=== PATIENT | female | born 1960 | race Caucasian/White ===

== ENCOUNTER → 2020-05-03 | Outpatient (CLI) | payer OTHER, SELFPAY ==
[2020-05-03 18:39] LABS: Vitamin D,25 Hydroxy 92.1 ng/mL
[2020-05-03 18:41] LABS: Cholesterol 176 mg/dL (200); High Density Lipoprotein 64 mg/dL; Thyroid Stim Hormone (TSH) 0.28 uIU/mL (0.358-3.74); Triglycerides 121 mg/dL; Very Low Density Lipoprotein 24 mg/dL (5-40)
== END | disposition home or self-care (01) ==
LOC: MFPLAB 15:01
PROVIDERS: PCP Family Medicine; Referring Provider Family Medicine; Visit Provider Family Medicine
DX: Z00.00 Encounter for general adult medical examination without abnormal findings (principal); E07.89 Other specified disorders of thyroid; E55.9 Vitamin D deficiency, unspecified
CPT/HCPCS: 36415; 80061; 82306; 84443

== ENCOUNTER → 2020-06-13 14:08 | Outpatient (CLI) | payer OTHER, SELFPAY ==
--- NOTE | 2020-06-13 14:11 | BI_ITS ---
MAMMOGRAPHY - BILATERAL SCREENING REASON FOR EXAM: Female, 60 years old. Routine annual screening examination. PERTINENT HISTORY: Non-contributory. Bilateral breast implants. TECHNIQUE: Digital bilateral breast yue (3D mammographic acquisition) in the CC and MLO projections. 2-D mediolateral oblique (MLO) and craniocaudad (CC) views of both breasts were obtained. CAD: Full Field Digital Mammography with Computer Added Detection was performed. COMPARISON: No comparison mammograms available at this time. If any prior films become available, an addendum to this report can be generated. FINDINGS: Breast Composition: The breasts are extremely dense, which lowers the sensitivity of mammography. There are no dominant masses or suspicious calcifications. Bilateral breast implants are visualized. They are unremarkable. No other significant abnormalities are identified. BI/SCREEN MAMM (CAD) W/YUE BILAT IMPRESSION: Negative screening mammogram. Yearly followup mammogram recommended. (A) ASSESSMENT CATEGORY: BIRADS Category 2: Benign. A letter regarding these results will be sent to the patient by the facility within 30 days. Approximately 10% of breast cancers are not detected by mammography. A normal mammogram should not delay biopsy of a clinically suspicious abnormality. [id number] Electronically Signed: Chester Thomas, at 13:41 EST , Service support ,
--- NOTE | 2020-06-13 14:30 | BD_ITS ---
STUDY: DUAL ENERGY X-RAY ABSORPTIOMETRY / DXA REASON FOR EXAM: Female, 60 years old. Age of vishnu 50. Pat is 119# and 62 and quot; a loss of 1.25 and quot; per pat. Smoked as a teenager. Takes a multi-vit. Exercises a little to moderatly. Mom and grandma have osteo. TECHNIQUE: Bone Mineral Density (BMD) measurements of lumbar spine and bilateral hips were obtained. COMPARISON: None. FINDINGS: Lumbar Spine (L1-L4): g/cm2 (1.097) / T-score (-0.7) / Z-score (0.4) Findings are suggestive of normal bone density with a low fracture risk. Left Femur Total: g/cm2 (0.808) / T-score (-1.6) / Z-score (-0.7) Left Femoral Neck: g/cm2 (0.732) / T-score (-2.2) / Z-score (-1.0) Right Femur Total: g/cm2 (0.801) / T-score (-1.6) / Z-score (-0.8) Right Femoral Neck: g/cm2 (0.791) / T-score (-1.8) / Z-score (-0.6) BD/Dexa Bone Density Study IMPRESSION: The patient is considered osteopenic as outlined below according to World Ari Organization (WHO) criteria with a high fracture risk. Reference Information: The T-score is the number of standard deviations above or below the standard which is normal for young adults at their peak bone mineral density. The World Health Organization (WHO) interprets the T-scores as follows: Above -1 Normal bone density Between -1 and -2.5 Osteopenia Equal to / or below -2.5 Osteoporosis As a practical clinical guideline, osteopenia may be graded as follows: Mild -1 through -1.5 Moderate -1.6 through -2.0 Severe -2.1 through -2.4 The Z-score is the number of standard deviations above or below age-matched controls. A Z-score of less than -1.5 would be considered abnormal. References: 1. NIH Osteoporosis and Related Bone Diseases www osteo.org 2. International Society for Clinical Densitometry www iscd.org 3. National Osteoporosis Foundation www nof.org Electronically Signed: Chester Thomas, at 15:23 EST , Service support ,
== END ==
PROVIDERS: PCP Family Medicine; Referring Provider Family Medicine; Visit Provider Family Medicine
DX: N95.9 Unspecified menopausal and perimenopausal disorder (principal); Z12.31 Encounter for screening mammogram for malignant neoplasm of breast
CPT/HCPCS: 77063; 77067; 77080

== ENCOUNTER → 2020-08-19 10:17 | Outpatient (CLI) | payer OTHER, SELFPAY ==
[2020-08-19 09:27] VITALS: BMI 22.4
[2020-08-19 12:42] LABS: Vitamin D,25 Hydroxy 63.8 ng/mL
[2020-08-19 12:46] LABS: Free T3 3.3 pg/mL (2.18-3.98); Thyroid Stim Hormone (TSH) 0.77 uIU/mL (0.358-3.74)
[2020-08-19 13:47] LABS: ALB/GLOB Ratio 1.2 RATIO (0.9-2.4); AST(SGOT) 21 U/L (15-37); Alanine Aminotransfer ALT/SGPT 25 U/L (13-56); Albumin, Serum 4.3 g/dL (3.2-5.0); Alkaline Phosphatase 57 U/L (45-117); Anion Gap 6 (5-15); BUN 14 mg/dL (7-18); BUN/Creat Ratio 14.4 RATIO (10-20); Calcium,Total 9.6 mg/dL (8.5-10.1); Chloride 107 mmol/L (98-107); Creatinine, Serum 0.98 mg/dL (0.55-1.02); EST Glomerular Filtration Rate 62 mL/min (>60); Est Glom Filt Rate - Afr Amer 75 mL/min (>60); Globulin 3.6 g/dL (2.2-4.2); Glucose 87 mg/dL (74-106); Potassium 3.9 mmol/L (3.5-5.1); Protein, Total 7.9 g/dL (6.4-8.2); Sodium Level 140 mmol/L (136-145)
== END ==
PROVIDERS: PCP Family Medicine; Visit Provider Internal Medicine Endocrinology, Diabetes & Metabolism
DX: E04.2 Nontoxic multinodular goiter (principal); E55.9 Vitamin D deficiency, unspecified; M85.80 Other specified disorders of bone density and structure, unspecified site
CPT/HCPCS: 36415; 80053; 82306; 84439; 84443; 84481

== ENCOUNTER → 2020-09-05 08:42 | Outpatient (CLI) | payer OTHER, SELFPAY ==
[2020-08-19 09:27] VITALS: BMI 22.4
--- NOTE | 2020-09-05 08:43 | US_ITS ---
STUDY: THYROID ULTRASOUND REASON FOR EXAM: Female, 60 years old. Nodular goiter, compare to previous TI-RAD please -- prev 2004 us in pacs is the only comparison we have - connect will not let me attach TECHNIQUE: Ultrasound evaluation of the thyroid was performed with real-time and static perez-scale imaging. COMPARISON: None. FINDINGS: RIGHT LOBE: The right lobe of the thyroid gland measures 4.7 cm x 1.5 cm x 1.4 cm. There is a heterogeneous echotexture. There is a dominant nodule measuring 2.2 cm x 1.9 cm x 1.1 cm in the lower aspect of the right lobe. This is mostly solid with cystic spaces. Intranodular vascularity is seen. 2 smaller similar-appearing nodules are seen measuring 1.3 cm x 0.9 cm x 0.9 cm and 0.5 cm x 0.5 cm x 0.4 cm. TIRADS category 4. LEFT LOBE: The left lobe of the thyroid gland measures 4.5 cm x 1.7 cm x 1.3 cm. There is a heterogeneous echotexture. 3 nodules are seen. The largest measures 2.2 cm x 1.3 cm x 1.2 cm in the inferior pole of the left lobe. This is a solid hypoechoic nodule. Intranodular vascularity is seen. TIRADS Category 4. ISTHMUS: The isthmus measures 2 mm. The regional lymph nodes are normal. US/Thyroid IMPRESSION: Bilateral thyroid nodules as described. Electronically Signed: Chester Thomas MD at 12:07 EST , Service support ,
== END ==
PROVIDERS: PCP Family Medicine; Referring Provider Internal Medicine Endocrinology, Diabetes & Metabolism; Visit Provider Internal Medicine Endocrinology, Diabetes & Metabolism
DX: E04.2 Nontoxic multinodular goiter (principal)
CPT/HCPCS: 76536

== ENCOUNTER → 2020-10-25 | Outpatient (CLI) | payer OTHER, SELFPAY ==
[2020-08-19 09:27] VITALS: BMI 22.4
--- NOTE | 2020-10-25 08:00 | ASPS_PTH ---
PATIENT: OJLIE STAUFFER LOC: [facility] U#:[id number] AGE/SX: 60/F ROOM: RE10/25/[address]: Dr. Boyd Nieves MD : 1960 BED: DIS: 10/25/2020 SPEC #: [id number] RECD: 10/25/20 16:58 STATUS: JIMMY ANSELMO #: [id number] ASHLEE: 10/25/20 08:[address]: Boyd Nieves DEPT: CYTOLOGY RECD BY: Fili Ochoa ENTERED: 10/28/20 09:01 SP TYPE: ASPIRATION OTHR DR: Dr. Jolie Parsons MD Tissues: A - Thyroid gland, NOS B - Thyroid gland, NOS Procedures: Special Stain Group II Cytology Other HEADER OPERATION: Ultrasound-guided bilateral fine needle aspiration thyroid PRE-OP DIAGNOSIS: Bilateral thyroid nodules TISSUE SUBMITTED: A - Right thyroid FNA slides x12, B - Left thyroid FNA slides x12 DIAGNOSIS CYTOLOGY A. Right thyroid nodule, ultrasound-guided FNA (smears): Consistent with benign colloid nodule. Adequate for evaluation. B. Left thyroid nodule, ultrasound-guided FNA (smears): Consistent with benign colloid nodule. Adequate for evaluation. EDGARD:eli 10/28/2020 COMMENT Correlation with clinical, radiologic findings and appropriate follow up are necessary. CYTOLOGY STUDY Slides are reviewed. CYTOLOGY GROSS A - Received are 12 smears labeled with the patient's name and designated per the requisition as right thyroid. Submitted for staining. B - Received are 12 smears labeled with the patient's name and designated per the requisition as left thyroid. Submitted for staining. / eli 10/28/2020 TC:5 CPT: 81448 x2
== END | disposition home or self-care (01) ==
LOC: LABSPEC 10-28 08:08
PROVIDERS: PCP Family Medicine; Referring Provider Surgery; Visit Provider Surgery
DX: E04.2 Nontoxic multinodular goiter (principal)
CPT/HCPCS: 88161; 88313

== ENCOUNTER → 2024-07-06 | Outpatient (CLI) | payer OTHER, SELFPAY ==
--- NOTE | 2024-07-06 08:26 | BI_ITS ---
MAMMOGRAPHY - BILATERAL SCREENING 3-D TOMOSYNTHESIS REASON FOR EXAM: Female, 64 years old. Screening for breast cancer PERTINENT HISTORY: No significant family history. TECHNIQUE: 2-D mammograms and 3-D Tomosynthesis of the breast (s) were performed. CAD was performed. COMPARISON: 08/05/2022 FINDINGS: The breast composition is composed of scattered fibroglandular density. Scattered benign calcifications are seen. No dense spiculated masses or suspicious microcalcifications are identified. No architectural distortion is identified. There is no skin thickening or retraction. There has been no significant change since the prior study. Bilateral retropectoral silicone implants appear intact. BI/SCRN MAMM (CAD)W/YUE BILAT IMPRESSION: No mammographic signs of malignancy. Routine yearly mammograms recommended. ASSESSMENT CATEGORY: BIRADS Category 1: Negative. A letter regarding these results will be sent to the patient by the facility within 30 days. FOLLOW UP RECOMMENDATION: Yearly follow up mammogram recommended. (A) Approximately 10% of breast cancers are not detected by mammography. A normal mammogram should not delay biopsy of a clinically suspicious abnormality. Electronically Signed: Alex Villanueva MD at 9:23 EST ,
== END | disposition home or self-care (01) ==
LOC: OPBI 08:26
PROVIDERS: PCP Family Medicine; Referring Provider Nurse Practitioner Women's Health; Visit Provider Nurse Practitioner Women's Health
DX: Z12.31 Encounter for screening mammogram for malignant neoplasm of breast (principal)
CPT/HCPCS: 77063; 77067

== ENCOUNTER → 2024-09-15 | Outpatient (CLI) | payer OTHER, SELFPAY ==
--- NOTE | 2024-09-15 15:12 | RAD_ITS ---
PROCEDURE: Bilateral hip pain. TECHNIQUE: Five views of the hip and pelvis were obtained. COMPARISON: None. FINDINGS: No fracture. No suspicious bone lesion. Normal alignment. Calcified pelvic phleboliths. There is evidence of prior bilateral tubal ligation clips. Degenerative changes of the lower lumbar spine. RAD/Hips B/L min 2 views w/ Pelvis IMPRESSION: No acute abnormality is seen. Reading Location: [id number]
== END | disposition home or self-care (01) ==
LOC: MTRAD 15:10
PROVIDERS: PCP Family Medicine; Referring Provider Family Medicine; Visit Provider Family Medicine
DX: M25.551 Pain in right hip (principal); M25.552 Pain in left hip
CPT/HCPCS: 73521

== ENCOUNTER 2024-10-03 05:20 | Day surgery (SDC) | payer OTHER, SELFPAY ==
[2024-10-03] VITALS (8 sets, daily range): BP systolic 88–120; BP diastolic 56–73; PULSE 60–74; RESP 16–18; TEMP 36.2–36.6; O2SAT 97–100; BMI 21.9
--- NOTE | 2024-10-03 06:28 | PCM.PRE.AN2 ---
ASA Classification* ASA Classification ASA Classification: 2 Assessment & Plan Anesthesia* Anesthesia Assessment Anesthesia Assessment: Discussed sedation and/or anesthesia options, risks, benefits, and alternatives with patient/parents/legal guardian/POA. Questions invited. The patient/parents/legal guardian/POA seems to understand and agrees to proceed with anesthesia plan. Reviewed the physical assessment, medical history, allergy history and patient home medications list prior to surgery/procedure/anesthetic and documented any changes. Performed airway and anesthesia risk assessments. Anesthesia Type Anesthesia Type: MAC History Source History Obtained from:: Patient and Chart Anesthesia Focused Assessment* Temperature: 97.1 F Pulse Rate: 74 Blood Pressure: 120/73 Respiratory Rate: 16 Pulse Ox: 100 Oxygen Delivery Method: Room Air Airway Assessment Mouth opens: >3 cm Mallampati Score: I Teeth Condition: Caps/Crowns ([place] on left lower molar. 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 When Was Last Pacemaker Check QUESTION #4 FULL TEXT: You/Your Family Experience fever (hyperthermia) with Anesthesia Last Oral Intake Last Oral intake: Last Oral Intake NPO since 01:00 10/03/24 05:45 Meds taken in AM with sips of No 10/03/24 05:45 water? Meds patient instructed to take am of surgery Any additional information?: Yes NPO since: 01:00 (Patient finished prep at 1 AM.) PONV PONV - apartment leasing consultant: PONV - apartment leasing consultant Female Yes 09/29/24 08:28 HX of Motion Sickness Yes 09/29/24 08:28 HX of N/V After Surgery No 09/29/24 08:28 Non-Smoker Yes 09/29/24 08:28 Duration of Surgery greater No 09/29/24 08:28 than 60 minutes Number of Risk Factors 3 09/29/24 08:28 PONV Score Moderate Risk 09/29/24 08:28 Height & Weight Height & Weight: Anesthesia: Height & Weight Height 5 ft 3 in 10/03/24 05:45 Weight: 56.245 kg 10/03/24 05:45 Body Mass Index (BMI) 21.9 10/03/24 05:45 Respiratory Assessment Respiratory Assessment - apartment leasing consultant: Respiratory Tract Infection Hx - apartment leasing consultant Hx Respiratory Tract Infection No 09/29/24 08:28 STOP Sleep Apnea STOP Sleep Apnea - apartment leasing consultant: STOP Sleep Apnea - apartment leasing consultant Hx Hypertension No 09/29/24 08:28 Hx Sleep Apnea No 09/29/24 08:28 CPAP BIPAP Do you snore loudly (louder No 09/29/24 08:28 than talking or can be heard Do you often feel tired/ No 09/29/24 08:28 fatigued/ sleepy during daytime? Has anyone observed you stop No 09/29/24 08:28 breathing during sleep? STOP Results Negative 09/29/24 08:28 QUESTION #5 FULL TEXT : Do you snore loudly (louder than talking or can be heard through closed doors)? 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 Specify any problems Hx of Preganancy in last 3 No 09/29/24 08:28 Months Nurse Filling Out Transfusion DSCHRIBER 09/29/24 08:28 & Questions: Date: 09/29/24 09/29/24 08:28 Time: 08:30 09/29/24 08:28 Patient unable to answer at this time (ie. confused, unrespo /Reproduction History /Reproductive History - apartment leasing consultant: /Reproductive Hx- apartment leasing consultant Hx Now No 09/29/24 08:28 Gestational Age (in weeks): EDC: Hx Hx Para Hx Section SAB No 09/29/24 08:28 [facility] Medical History Loss of hearing Post-menopausal Alcohol use Arthritis Back pain Non-smoker Vitamin D deficiency Osteopenia Low calcium levels nodules on thyroid Home Medications ?Medication ?Instructions ?Recorded ?Last Taken ?Type ergocalciferol (vitamin D2) 1,250 1,250 mcg PO QMONTH 08/19/20 09/09/24 History mcg (50,000 unit) capsule (Vitamin D2) B-complex with vitamin C 1 tab PO QDAY 06/27/24 09/30/24 History calcium 333 mg 1 tab PO QDAY 06/27/24 09/30/24 History (carbonate)-magnesium 133 mg (oxide)-zinc 5 mg tablet meloxicam 7.5 mg tablet 7.5 mg PO QDAY PRN pain 06/27/24 Unknown History multivitamin 1 tab PO QDAY 06/27/24 Unknown History naproxen 500 mg tablet 500 mg PO BID 09/29/24 10/01/24 History cetirizine 10 mg tablet (24Hour 10 mg PO DAILY 10/03/24 10/02/24 History Allergy) Allergy/AdvReac Type Severity Reaction Status Date / Time amoxicillin Allergy Mild Hives Verified 10/03/24 05:41 Family History Other Anxiety Arthritis Asthma Depression Osteoporosis Skin cancer Thyroid disorder Surgical History Hx of colonoscopy H/O breast augmentation Social History household members: spouse current occupational status: retired Smoking Status: Never smoker alcohol intake: current alcohol intake frequency: holidays/special occasions only substance use type: does not use seatbelt use: always do you feel safe at home: Yes additional social history: - 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 Review of Systems (Anesthesia) ROS Narrative System reviewed and no additional complaints, except as documented.
--- NOTE | 2024-10-03 06:58 | PCM.HP.STD ---
HPI - General General Date of Admission: 10/03/24 Date of Service: 10/03/24 Chief Complaint: Screening colonoscopy HPI Narrative EMEKA STAUFFER, is a 64 F who presents today for screening colonoscopy. She has not had a colonoscopy in the past. She has no medical history. She does not take any medicines on daily basis. FORMERLY [facility], 1928–1983 Medical History Loss of hearing Post-menopausal Alcohol use Arthritis Back pain Non-smoker Vitamin D deficiency Osteopenia Low calcium levels nodules on thyroid Home Medications ?Medication ?Instructions ?Recorded ?Last Taken ?Type ergocalciferol (vitamin D2) 1,250 1,250 mcg PO QMONTH 08/19/20 09/09/24 History mcg (50,000 unit) capsule (Vitamin D2) B-complex with vitamin C 1 tab PO QDAY 06/27/24 09/30/24 History calcium 333 mg 1 tab PO QDAY 06/27/24 09/30/24 History (carbonate)-magnesium 133 mg (oxide)-zinc 5 mg tablet meloxicam 7.5 mg tablet 7.5 mg PO QDAY PRN pain 06/27/24 Unknown History multivitamin 1 tab PO QDAY 06/27/24 Unknown History naproxen 500 mg tablet 500 mg PO BID 09/29/24 10/01/24 History cetirizine 10 mg tablet (24Hour 10 mg PO DAILY 10/03/24 10/02/24 History Allergy) Allergy/AdvReac Type Severity Reaction Status Date / Time amoxicillin Allergy Mild Hives Verified 10/03/24 05:41 Family History Other Anxiety Arthritis Asthma Depression Osteoporosis Skin cancer Thyroid disorder Surgical History Hx of colonoscopy H/O breast augmentation Social History household members: spouse current occupational status: retired Smoking Status: Never smoker alcohol intake: current alcohol intake frequency: holidays/special occasions only substance use type: does not use seatbelt use: always do you feel safe at home: Yes additional social history: - 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 ROS Constitutional Constitutional: Denies fatigue, fever(s), poor appetite, weight gain or weight loss Gastrointestinal Gastrointestinal: Denies belching, bloating, change in bowel habits, change in stool character, chewing difficulty, coffee ground emesis, constipation, cramping, diarrhea, dyspepsia, dysphagia, early satiety, excessive flatus, fecal incontinence, heartburn, hematemesis, hematochezia, hemorrhoids, loose stools, melena, nausea, odynophagia, rectal bleeding, tenesmus, vomiting or weight changes Vital Signs Vital Signs Vital Signs: 10/03/24 05:43 10/03/24 05:45 10/03/24 06:33 Temperature 97.1 F L 97.1 F L Temperature Source Temporal Pulse Rate 74 74 Respiratory Rate 16 16 Respiratory Pattern Normal Blood Pressure 120/73 120/73 Blood Pressure Mean 88 Blood Pressure Source Monitor Blood Pressure Position Semi-Fowlers Blood Pressure Location Left Arm Pulse Ox 100 100 Oxygen Delivery Method Room Air Room Air Weight Weight: 124 lb Body Mass Index (BMI) 21.9 Physical Exam Const alert, oriented x3, no apparent distress and healthy appearing General Appearance: cooperative GI normal to inspection, nondistended, normoactive bowel sounds, soft to palpation, non-tender and non-distended Percussion: normal to percussion Rectal Exam: deferred Assessment & Plan Assessment/Plan (1) Encounter for screening for malignant neoplasm of colon: PLAN: She was explained alternatives, risk and benefits include understanding bleeding, infection, sepsis, perforation, need for surgery . She will have an ASA of 3.
--- NOTE | 2024-10-03 07:28 | PCM.POST.ANE ---
Anesthesia: Postop Eval I Current Vital Signs Temperature: 97.1 F Pulse Rate: 71 Blood Pressure: 88/56 Respiratory Rate: 16 Pulse Ox: 98 Oxygen Delivery Method: Room Air Assessment Airway patent: Yes Spontaneous unlabored respirations: Yes Mental status: Awake and Calm nausea: No Vomiting: No Anesthesia Complication: No Fluid Hydration Crystalloid volume administer (ml): 45 Total IV fluid infused: 45 Progress Note Anesthesia document: Postop Eval 1 completed: Yes
--- NOTE | 2024-10-03 07:29 | OP.CCLET_ITS ---
10/03/2024 Jolie Parsons [address] [place] [address] Re : Colonoscopy procedure for Jolie Healy Dear Dr. Parsons This procedure was performed on Thursday, October 03, 2024. My impressions and recommendations are as follows: Impressions : - Diverticulosis in the recto-sigmoid colon and in the sigmoid colon. - The examination was otherwise normal on direct and retroflexion views. - No specimens collected. Recommendations : - Discharge patient to home. - Resume previous diet. - Continue present medications. - Repeat colonoscopy in 10 years for screening purposes. My findings are described in the full procedure note, which is enclosed. If I can be of further assistance, please feel free to contact me at . Sincerely, Vinnie Enrique, 10/03/2024 7:28:16 AM This report has been signed electronically.
--- NOTE | 2024-10-03 07:29 | OP.COLON_ITS ---
Patient Name: Jolie Healy Procedure Date: 10/03/2024 6:11 AM Date of : 1960 Age: 64 Procedure: Colonoscopy Indications: Screening for colorectal malignant neoplasm Providers: Vinnie Enrique DO Referring MD: Jolie Parsons Medicines: Monitored Anesthesia Care Patient Profile: This is a 64 year old female. Refer to note in patient chart for documentation of history and physical. Last Colonoscopy: more than 10 years ago. Complications: No immediate complications. Procedure: Pre-Anesthesia Assessment: - Prior to the procedure, a History and Physical was performed, and patient medications and allergies were reviewed. The patient is competent. The risks and benefits of the procedure and the sedation options and risks were discussed with the patient. All questions were answered and informed consent was obtained. Patient identification and proposed procedure were verified by the physician in the pre-procedure area. Mental Status Examination: alert and oriented. Airway Examination: normal oropharyngeal airway and neck mobility. Respiratory Examination: clear to auscultation. CV Examination: normal. Prophylactic Antibiotics: The patient does not require prophylactic antibiotics. Prior Anticoagulants: The patient has taken no anticoagulant or antiplatelet agents except for NSAID medication. ASA Grade Assessment: II - A patient with mild systemic disease. After reviewing the risks and benefits, the patient was deemed in satisfactory condition to undergo the procedure. The anesthesia plan was to use monitored anesthesia care (MAC). Immediately prior to administration of medications, the patient was re-assessed for adequacy to receive sedatives. The heart rate, respiratory rate, oxygen saturations, blood pressure, adequacy of pulmonary ventilation, and response to care were monitored throughout the procedure. The physical status of the patient was re-assessed after the procedure. After I obtained informed consent, the scope was passed under direct vision. Throughout the procedure, the patient's blood pressure, pulse, and oxygen saturations were monitored continuously. The Colonoscope was introduced through the anus and advanced to the cecum, identified by appendiceal orifice and ileocecal valve. The colonoscopy was performed without difficulty. The patient tolerated the procedure well. The quality of the bowel preparation was adequate. Anatomical landmarks were photographed. Scope In: 7:09:52 AM Scope Withdrawal Time 0 hours 6 minutes 23 seconds Scope Out: 7:20:41 AM Total Procedure Duration Time 0 hours 10 minutes 49 seconds Findings: The perianal and digital rectal examinations were normal. A few small-mouthed diverticula were found in the recto-sigmoid colon and sigmoid colon. The exam was otherwise without abnormality on direct and retroflexion views. Impression: - Diverticulosis in the recto-sigmoid colon and in the sigmoid colon. - The examination was otherwise normal on direct and retroflexion views. - No specimens collected. Recommendation: - Discharge patient to home. - Resume previous diet. - Continue present medications. - Repeat colonoscopy in 10 years for screening purposes. Procedure Code(s): --- Professional --- G0121, Colorectal cancer screening; colonoscopy on individual not meeting criteria for high risk CPT copyright 2021 [employer]. All rights reserved. The codes documented in this report are preliminary and upon cinder man review may be revised to meet current compliance requirements. Vinnie Enrique DO 10/03/2024 7:28:16 AM This report has been signed electronically. Number of Addenda: 0 Note Initiated On: 10/03/2024 6:11 AM
--- NOTE | 2024-10-03 08:54 | PCM.POSTANE2 ---
Anesthesia Postop Eval I Sum Postop Eval Completion status Anesthesia document: Postop Eval 1 completed: Yes Anesthesia Postop Eval I Summary Anesthesia Postop Eval I Summary: Anesthesia Postop Eval I: Assessment Summary Airway patent Yes 10/03/24 07:28 [email or web address] Spontaneous unlabored Yes 10/03/24 07:28 [email or web address] respirations Mental status Awake,Calm 10/03/24 07:28 [email or web address] nausea No 10/03/24 07:28 [email or web address] Vomiting No 10/03/24 07:28 [email or web address] Anesthesia Postop Eval I: Fluid Summary Crystalloid volume administer 45 10/03/24 07:28 [email or web address] (ml) Colloids volume administered ( ml) Blood Product volume administered (ml) Total IV fluid infused 45 10/03/24 07:28 [email or web address] Anesthesia Postop Eval I: Summary Notes Anesthesia Complication No 10/03/24 07:28 [email or web address] Anesthesia Complication Comment: Post-operative progress note Anesthesia: Postop Eval II Evaluation Mental status: Awake and Calm Pain Level: 0 nausea: No Vomiting: No Complications Anesthesia Complication: No
== END 2024-10-03 08:02 | disposition home or self-care (01) ==
LOC: EN 05:20 → AC 05:22
PROVIDERS: PCP Family Medicine; Referring Provider Family Medicine; Visit Provider Internal Medicine Gastroenterology
PROC: 0DJD8ZZ Inspection of Lower Intestinal Tract, Via Natural or Artificial Opening Endoscopic (ICD-10-PCS; CPT 45378; principal; 2024-10-03 06:25)
DX: Z12.11 Encounter for screening for malignant neoplasm of colon (principal); K57.30 Diverticulosis of large intestine without perforation or abscess without bleeding
CPT/HCPCS: 45378; A4216; J2405

== ENCOUNTER → 2025-05-07 | Outpatient (CLI) | payer OTHER, SELFPAY ==
--- OUTSIDE RECORDS SUMMARY | 2025-05-07 07:04 | XMS RPT_ITS | CCD ---
Author Organization [facility] Care Team Providers Care Watch Electrician Name Role Phone MEJIA PIERRE Unavailable Unavailable MEJIA PIERRE Unavailable Unavailable ERIK BATISTA Referring Unavailable MEJIA PIERRE Primary Care Unavailable Mejia Pierre Primary Care Provider Mejia Pierre Primary Care Provider Mitchell An MD Primary Care Provider Mitchell An MD Primary Care Provider Mitchell An MD Primary Care Provider Mitchell An MD Primary Care Provider [phone] Keesha Smith PA-C Unavailable Older BARN WORKER.Kiley ALVARADO Unavailable Maria Loving PA-C Unavailable Dr. Jolie Parsons MD Primary Care Provider Amelia Vizcaino Attending Provider Unavailable Bijal ROLLER MACHINE OPERATOR-CJessica Attending Provider Bijal ROLLER MACHINE OPERATOR-CJessica Referring Provider Dr. Julius Monsalve MD Attending Provider Dr. Julius Monsalve MD Referring Provider Dr. Jolie Parsons MD Referring Provider Dr. Vinnie Enrique DO Attending Provider Dr. Vinnie Enrique DO Other Provider Jolie Parsons Primary Care Unavailable Julius Monsalve Attending Unavailable Julius Monsalve Referring Unavailable Jolliff, Jolie S Primary Care Unavailable Jolliff, Jolie S Referring Unavailable Bijal ROLLER MACHINE OPERATOR, Jessica Attending Unavailable Jolliff, Jolie S Primary Care Unavailable Amelia Vizcaino Attending Unavailable Jolliff, Jolie S Referring Unavailable Jolliff, Jolie S Primary Care Unavailable Friend, Vinnie Consulting Unavailable Friend, Vinnie Attending Unavailable Jolliff, Jolie S Primary Care Unavailable Jolliff, Jolie S Referring Unavailable Friend, Vinnie Attending Unavailable Jolliff, Jolie S Primary Care Unavailable Bijal ROLLER MACHINE OPERATOR, Jessica Attending Unavailable Bijal ROLLER MACHINE OPERATOR, Jessica Referring Unavailable Mitchell An MD Primary Care Provider Jolie Parsons Primary Care Provider [phone] Allergies Allergy Classification Reported Allergen(s) Allergy Type Date of Onset Reaction(s) Facility (13 sources) Azithromycin Drug Allergy 7 [place], [place] (20 sources) Alendronate Drug Allergy 1 Swelling, GI Upset [facility] Work Phone: (14 sources) Amoxicillin Drug Allergy 3 Rash [facility] (12 sources) Seasonal allergy Propensity to adverse reactions 3 Cough [facility] Work Phone: (1 source) Amoxicillin Drug Allergy 5 [facility] Repository Medications Current Medications Medication Drug Class(es) Dates Sig (Normalized) Sig (Original) amoxicillin 500 mg oral capsule (2 sources) Penicillin-class Antibacterial Start: 07-07-2022 End: 07-17-2022 take 1 capsule by mouth twice daily amoxicillin (POLYMOX, AMOXIL) 500 mg capsule Indications: Strep throat Take 1 capsule by mouth twice daily for 10 days. 20 capsule 0 07/07/2022 07/17/2022 Active Comment on above: Take 1 capsule by [facility] twice daily for 10 days. ascorbic acid 300 mg / biotin 0.3 mg / calcium pantothenate 10 mg / folic acid 0.04 mg / niacinamide 50 mg / pyridoxine hydrochloride 5 mg / riboflavin 10.2 mg / thiamine mononitrate 15 mg oral tablet (1 source) Vitamin C B Bwworco-F-Ndupg Acid (VITABEE/C) TABS Take by mouth. 0 Active B-Complex With Vitamin C tablet (2 sources) Start: 06-27-2024 B-Complex With Vitamin C tablet Active 1 {tbl} PO daily June 27, 2024 1:00am calcium carbonate 600 mg / cholecalciferol 125 unt oral tablet (20 sources) Vitamin D Start: 01-20-2008 calcium carbonate/vitami n d3(CALCIUM 600 + D 600 MG-125 UNIT TAB) one tablet every other day 0 01/20/2008 Active Comment on above: one tablet every oth er day Calcium Carb-Mag Ox-Zinc Gluc (2 sources) Start: 06-27-2024 Calcium Carb-Mag Ox-Zinc Gluc 333-133-5 mg tablet Active 1 {tbl} PO daily June 27, 2024 1:00am cetirizine hydrochloride 10 mg oral tablet (20 sources) Histamine-1 Receptor Antagonist Start: 10-03-2024 take 1 tablet by mouth once daily Cetirizine (24hour Allergy) 10 mg tablet Active 10 mg PO DAILY October 03, 2024 12:00am cetirizine HCl ( ZYRTEC ORAL) Take by mouth as needed. For allergies Active cetirizine HCl ( ZYRTEC ORAL) Take by mouth as needed. For allergies 0 Active Comment on above: Take by mouth as nee ded. For allergies ergocalciferol 1.25 mg oral capsule (20 sources) Provitamin D2 Compound Start: 07-12-2017 ergocalciferol 50,000 unit capsule (VITAMIN D2, DRISDOL) 1 capsule once every month. 07/12/2017 Active Start: 07-12-2017 ergocalciferol 50,000 unit capsule (VITAMIN D2, DRISDOL) TAKE 1 CAPSULE ONCE WEEKLY 0 07/12/2017 Active Comment on above: TAKE 1 CAPSULE ONCE WEEKLY 1 capsule once every month. meloxicam 7.5 mg oral tablet (20 sources) Nonsteroidal Anti-inflammatory Drug Start: 06-27-2024 take 1 tablet by mouth once daily as needed for pain Meloxicam 7.5 mg tablet Active 7.5 mg PO daily as needed for pain June 27, 2024 1:00am Start: 05-20-2021 take 1 tablet by conrado once daily at mealtime meloxicam (MOBIC) 15 mg tablet Indications: Acute pain of left knee , Groin pain, chronic, left Take 1 tablet by mouth once daily. With food. 30 tablet 5 05/20/2021 Active Comment on above: Take 1 tablet by conrado th once daily. With food. Multiple Vitamin (MULTI-DAY VITAMINS PO) (1 source) Multiple Vitamin (MULTI-DAY VITAMINS PO) Take by mouth 0 Active multivitamin tablet (20 sources) Start: 10-18-2020 take 1 tablet by mouth once daily multivitamin tablet Take 1 tablet by mouth once daily. 10/18/2020 Active Start: 10-18-2020 take 1 tablet by conrado th once daily multivitamin tablet Take 1 tablet by mouth once daily. 0 10/18/2020 Active Comment on above: Take 1 tablet by conrado th once daily. Multivitamin tablet (2 sources) Start: 06-27-20 24 Multivitamin tablet Active 1 {tbl} PO daily June 27, 2024 1:00am naproxen 500 mg oral tablet (1 source) Nonsteroidal Anti-inflammatory Drug Start: 09-30-19 25 take 1 tablet by mouth twice daily Naproxen 500 mg tablet Active 500 mg PO TWICE A DAY September 29, 2024 12:00am 100 ml zoledronic acid 0.05 mg/ml injection (9 sources) Bisphosphonate Start: 03-29-20 End: 04-28-20 zoledronic acid 5 mg PREMIX piggyback (RECLAST) Start: 04-16-2022 End: 05-16-2022 zoledronic acid 5 mg PREMIX piggyback (RECLAST) Start: 08-19-2020 End: 06-27-2024 Zoledronic Bofc-Ngtbbzmj-Xcb er 5 mg/100 mL piggyback Discontinued 1 NMA .Route ONCE 100 August 19, 2020 1:00am June 27, 2024 9:29am infuse over 20 minutes. Completed/Discontinued Medications Medication Drug Class(es) Dates Sig (Normalized) Sig (Original) ascorbic acid 500 mg oral tablet (2 sources) Vitamin C Start: 12-17-2006 take 1 tablet by mouth once daily ascorbic acid (VITAMIN C) 500 mg ORAL Tab Take one(1) tablet daily. 0 12/17/2006 Active Comment on above: Take one(1) tablet d aily. Problems Active Problems Problem Classification Problem Date Documented Da te Episodic/Chronic Diabetes mellitus without complication (1 source) Hyperglycemia; Translations: [Hyperglycemia, unspecified] Episodic Mood disorders (1 source) Disturbance in mood; Translations: [Emotional lability] 03-29-2023 Episodic Nutritional deficiencies (4 sources) Vitamin D deficiency; Translations: [Vitamin D deficiency, unspecified] Chronic Osteoporosis (20 sources) Senile osteoporosis; Translations: [Age-related osteoporosis without current pathological fracture] Onset: 03-09-2021 03-09-2021 Chronic Other bone disease and musculoskeletal deformities (3 sources) Osteopenia; Translations: [Other specified disorders of bone density and structure, multiple sites] Episodic Other connective tissue disease (1 source) Decrease in height; Translations: [Loss of height] Episodic Other non-traumatic joint disorders (3 sources) Hip pain; Translations: [Pain in left hip] Episodic Other non-traumatic joint disorders (1 source) Pain in right hip; Translations: [Pain in right hip] Onset: 09-26-2024 Episodic Other screening for suspected conditions (not mental disorders or infectious disease) (18 sources) Patient encounter status; Translations: [Encounter for screening for lipoid disorders] Onset: 05-08-2024 Episodic Other upper respiratory infections (2 sources) Sore throat symptom; Translations: [Acute pharyngitis, unspecified] Episodic Residual codes; unclassified (1 source) Sleep disorder; Translations: [Sleep disorder, unspecified] 03-29-2023 Episodic Spondylosis; intervertebral disc disorders; other back problems (2 sources) Degeneration of intervertebral disc; Translations: [Lumbar spondylosis] 07-20-2014 Chronic Thyroid disorders (3 sources) Multinodular goiter; Translations: [Nontoxic multinodular goiter] 03-29-2023 Chronic Past or Other Problems Problem Classification Problem Date Documented Date Episodic/Chronic Abdominal pain (1 source) Unspecified abdominal pain; Translations: [Unspecified abdominal pain] Onset: 09-16-2017 Episodic Contraceptive and procreative management (1 source) H/O: tubal ligation; Translations: [S/P tubal ligation] Onset: 01-27-2013 01-27-2013 Episodic Other connective tissue disease (1 source) Medial epicondylitis; Translations: [Medial epicondylitis of elbow] Onset: 01-31-2015 01-31-2015 Episodic Residual codes; unclassified (20 sources) History of cosmetic plastic surgery; Translations: [Other plastic surgery for unacceptable cosmetic appearance] Onset: 11-23-2011 11-23-2011 Episodic Residual codes; unclassified (1 source) History of augmentation of breast; Translations: [Status post breast augmentation] Onset: 03-30-2012 03-30-2012 Episodic Spondylosis; intervertebral disc disorders; other back problems (20 sources) Backache; Translations: [Chronic low back pain] Onset: 11-17-2021 07-20-2014 Episodic Unclassified (2 sources) Patient encounter status; Translations: [Encounter for screening mammogram for malignant neoplasm of breast] 08-19-2024 Unclassified (2 sources) nodules on thyroid 01-29-2022 Results Test Name Value Interpretation Reference Range Facility Colonoscopy Reporton 025 Colonoscopy Report [facility] Medical Records Department [address] [place] [address] Colonoscopy Report MR#: [id number] Acct: [id number] Name: JOLIE HEALY Rep #: [id number] : 1960 64 From: Vinnie Enrique DO PCP: Dr. Jolie Parsons MD Status:[facility] Patient Name: Jolie Healy Procedure Date: 10/03/2024 6:11 AM Date of : 1960 Age: 64 Procedure: Colonoscopy Indications: Screening for colorectal malignant neoplasm Providers: Vinnie Enrqiue DO Referring MD: Jolie Parsons Medicines: Monitored Anesthesia Care Patient Profile: This is a 64 year old female. Refer to note in patient chart for documentation of history and physical. Last Colonoscopy: more than 10 years ago. Complications: No immediate complications. Procedure: Pre-Anesthesia Assessment: - Prior to the procedure, a History and Physical was performed, and patient medications and allergies were reviewed. The patient is competent. The risks and benefits of the procedure and the sedation options and risks were discussed with the patient. All questions were answered and informed consent was obtained. Patient identification and proposed procedure were verified by the physician in the pre-procedure area. Mental Status Examination: alert and oriented. Airway Examination: normal oropharyngeal airway and neck mobility. Respiratory Examination: clear to auscultation. CV Examination: normal. Prophylactic Antibiotics: The patient does not require prophylactic antibiotics. Prior Anticoagulants: The patient has taken no anticoagulant or antiplatelet agents except for NSAID medication. ASA Grade Assessment: II - A patient with mild systemic disease. After reviewing the risks and benefits, the patient was deemed in satisfactory condition to undergo the procedure. The anesthesia plan was to use monitored anesthesia care (MAC). Immediately prior to administration of medications, the patient was re-assessed for adequacy to receive sedatives. The heart rate, respiratory rate, oxygen saturations, blood pressure, adequacy of pulmonary ventilation, and response to care were monitored throughout the procedure. The physical status of the patient was re-assessed after the procedure. After I obtained informed consent, the scope was passed under direct vision. Throughout the procedure, the patient's blood pressure, pulse, and oxygen saturations were monitored continuously. The Colonoscope was introduced through the anus and advanced to the cecum, identified by appendiceal orifice and ileocecal valve. The colonoscopy was performed without difficulty. The patient tolerated the procedure well. The quality of the bowel preparation was adequate. Anatomical landmarks were photographed. Scope In: 7:09:52 AM Scope Withdrawal Time 0 hours 6 minutes 23 seconds Scope Out: 7:20:41 AM Total Procedure Duration Time 0 hours 10 minutes 49 seconds Findings: The perianal and digital rectal examinations were normal. A few small-mouthed diverticula were found in the recto-sigmoid colon and sigmoid colon. The exam was otherwise without abnormality on direct and retroflexion views. Impression: - Diverticulosis in the recto-sigmoid colon and in the sigmoid colon. - The examination was otherwise normal on direct and retroflexion views. - No specimens collected. Recommendation: - Discharge patient to home. - Resume previous diet. - Continue present medications. - Repeat colonoscopy in 10 years for screening purposes. Procedure Code(s): --- Professional --- G0121, Colorectal cancer screening; colonoscopy on individual not meeting criteria for high risk CPT copyright 2021 [employer]. All rights reserved. The codes documented in this report are preliminary and upon tree expert review may be revised to meet current compliance requirements. Vinnie Enrique DO 10/03/2024 7:28:16 AM This report has been signed electronically. Number of Addenda: 0 Note Initiated On: 10/03/2024 6:11 AM 10/03/24 0729 Date Vinnie Alejandra Signature: Date (if indicated) CC: Dr. Jolie Parsons MD; Vinnie Enrique DO Date Dictated: 10/03/24610 Date Transcribed: Furnace Installer: JOSE MANUEL Signed [facility] MR/POSTOP.ANEon 10-03-2024 MR/POSTOP.[facility] Medical Records Department [address] [place] [address] Anesthesia Postop Eval I 10/03/24727 MR#: [id number] Acct: [id number] Name: JOLIE HEALY Rep #: [id number] : 1960 64 From: Davey Delarosa PCP: Dr. Jolie Parsons MD Status:[facility] Y Race: C Location: [place] [address] Anesthesia: Postop Eval I Current Vital Signs Temperature: 97.1 F Pulse Rate: 71 Blood Pressure: 88/56 Respiratory Rate: 16 Pulse Ox: 98 Oxygen Delivery Method: Room Air Assessment Airway patent: Yes Spontaneous unlabored respirations: Yes Mental status: Awake and Calm nausea: No Vomiting: No Anesthesia Complication: No Fluid Hydration Crystalloid volume administer (ml): 45 Total IV fluid infused: 45 Progress Note Anesthesia document: Postop Eval 1 completed: Yes 10/03/24727 Date Davey Gastelum Signature: CC: Signed [facility] MR/[id number] 10-03-2024 MR/POST[address] Medical Records Department [address] [place] [address] Anesthesia Postop Eval II 10/03/24 0854 MR#: [id number] Acct: [id number] Name: JOLIE HEALY Rep #: [id number] : 1960 64 From: Franco Jarrett MD PCP: Dr. Jolie Parsons MD Status:[facility] Y Race: C Location: [place] Anesthesia Postop Eval I Sum Postop Eval Completion status Anesthesia document: Postop Eval 1 completed: Yes Anesthesia Postop Eval I Summary Anesthesia Postop Eval I Summary: Anesthesia Postop Eval I: Assessment Summary Airway patent Yes 10/03/24 07:28 [email or web address] Spontaneous unlabored Yes 10/03/24 07:28 [email or web address] respirations Mental status Awake,Calm 10/03/24 07:28 [email or web address] nausea No 10/03/24 07:28 [email or web address] Vomiting No 10/03/24 07:28 [email or web address] Anesthesia Postop Eval I: Fluid Summary Crystalloid volume administer 45 10/03/24 07:28 [email or web address] (ml) Colloids volume administered ( ml) Blood Product volume administered (ml) Total IV fluid infused 45 10/03/24 07:28 [email or web address] Anesthesia Postop Eval I: Summary Notes Anesthesia Complication No 10/03/24 07:28 [email or web address] Anesthesia Complication Comment: Post-operative progress note Anesthesia: Postop Eval II Evaluation Mental status: Awake and Calm Pain Level: 0 nausea: No Vomiting: No Complications Anesthesia Complication: No 10/03/24 0855 Date Franco Jarrett MD Cosigner Signature: Date CC: Signed Normal [facility] Hips B/L min 2 views w/ Pelv juma 09-15-2024 Hips B/L min 2 views w/ Pelvis [facility] Imaging Services [address] [place], [place] [address] Hips B/L min 2 views w/ Pelvis MR#: [id number] Acct: [id number] Name: JOLIE HEALY Rep #: [id number] : 1960 F 64 From: Chester fuentes MD PCP: Dr. Jolie Parsons MD Status: REG CLI Study: Hips B/L min 2 views w/ Pelvis Date of Exam: 0 09/15/24 Exam# [id number] Ordering Dr: Julius Monsalve MD PROCEDURE: Bilateral hip pain. TECHNIQUE: Five views of the hip and pelvis were obtained. COMPARISON: None. FINDINGS: No fracture. No suspicious bone lesion. Normal alignment. Calcified pelvic phleboliths. There is evidence of prior bilateral tubal ligation clips. Degenerative changes of the lower lumbar spine. RAD/Hips B/L min 2 views w/ Pelvis IMPRESSION: No acute abnormality is seen. Reading Location: [id number] CC: Dr. Jolie Parsons MD; Dr. Julius Monsalve MD Furnace Installer: Signed Normal [facility] SCRN MAMM (CAD)W/GARCIA BILATo n 07-06-2024 SCRN MAMM (CAD)W/GARCIA BILAT [facility] Imaging Services [address] [place] [address] SCRN MAMM (CAD)W/GARCIA BILAT MR#: [id number] Acct: [id number] Name: JOLIE HEALY Rep #: [id number] : 1960 F 64 From: Alex Villanueva MD PCP: Dr. Jolie Parsons MD Status: REG CLI Study: SCRN MAMM (CAD)W/GARCIA BILAT Date of Exam: 06/12 01/02 Exam# [id number] Ordering Dr: Jessica Appiah ROLLER MACHINE OPERATOR ROLLER MACHINE OPERATOR -C [id number] MAMMOGRAPHY - BILATERAL SCREENING 3-D TOMOSYNTHESIS REASON FOR EXAM: Female, 64 years old. Screening for breast cancer PERTINENT HISTORY: No significant family history. TECHNIQUE: 2-D mammograms and 3-D Tomosynthesis of the breast (s) were performed. CAD was performed. COMPARISON: 08/05/2022 FINDINGS: The breast composition is composed of scattered fibroglandular density. Scattered benign calcifications are seen. No dense spiculated masses or suspicious microcalcifications are identified. No architectural distortion is identified. There is no skin thickening or retraction. There has been no significant change since the prior study. Bilateral retropectoral silicone implants appear intact. BI/SCRN MAMM (CAD)W/GARCIA BILAT IMPRESSION: No mammographic signs of malignancy. Routine yearly mammograms recommended. ASSESSMENT CATEGORY: BIRADS Category 1: Negative. A letter regarding these results will be sent to the patient by the facility within 30 days. FOLLOW UP RECOMMENDATION: Yearly follow up mammogram recommended. (A) Approximately 10% of breast cancers are not detected by mammography. A normal mammogram should not delay biopsy of a clinically suspicious abnormality. Electronically Signed: Alex Villanueva MD at 9:23 EST , CC: RIMMA Appiah; Dr. Jolie Parsons MD Furnace Installer: Signed Normal [facility] Radar Engineering Teacher Office Visit Reporton 05-08-2024 Radar Engineering Teacher Office Visit Report [facility] [address], [address] [place] [address] OFFICE VISIT Date of Service: 05/08/24 MR#: [id number] Acct: [id number] Name: JOLIE HEALY Jessica Rep #: [id number] : 1960 Provider: RIMMA mena Age/Sex: 64/F Location[place] [facility] Status: Signed Intake Vital Signs 08/19/20 09:27 05/08/24 14:22 05/08/24 14:30 Height 5 ft 2 in 5 ft 2 in 5 ft 2 in Weight: 128 lb 8 oz BMI 23.5 BP 112/70 Intake Visit Reasons: Annual (WARD CLERK) Chief Complaint: Annual Shredding Specialist Required: No Is patient in pain?: No Allergies amoxicillin Allergy (Mild, Verified 05/08/24 14:26) Hives Medications ???Medication ???Instructions ???Recorded ???Confirmed ???Type ergocalciferol (vitamin D2) 1,250 1,250 mcg PO QMONTH 08/19/20 05/08/24 History mcg (50,000 unit) capsule (Vitamin D2) zoledronic acid 5 mg/100 mL in 1 ea .Route ONCE #100 mL 08/19/20 05/08/24 Rx mannitol 5 %-water intravenous piggybck Is last menstrual period known: No Post menopausal: Yes Patient : No : No PFSH Medical History Low blood sugar Vitamin D deficiency Vision problems Osteopenia Low calcium levels UTI (urinary tract infection) Back problem Seasonal allergies nodules on thyroid Surgical History H/O breast augmentation Family History Other Anxiety Arthritis Asthma Depression Osteoporosis Skin cancer Thyroid disorder Social History (Updated 05/08/24 @ 14:28 by Yolanda Wagner) household members: spouse current occupational status: retired Smoking Status: Never smoker alcohol intake: current alcohol intake frequency: holidays/special occasions only substance use type: does not use seatbelt use: always do you feel safe at home: Yes additional social history: - 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 History 2 Elective abortions Hx Para 2 Spontaneous abortions Hx # Term Pregnancies Ectopic pregnancies Hx # Pregnancies Multiple births # of living children 2 Past Pregnancies Del. Date Name GA/Weeks Outcome Route Bth Weight Gen Labor Lgth Anesthesia Del Locatn Provider FOB Unknown Jorge Unknown Casa HPI Encounter for routine gynecological examination Details: JOLIE HEALY is a 64 year old who presents for new patient annual exam. Denies WARD CLERK concerns. and declines STD evaluation. Last PAP: 2022 [facility] History of abnormal PAP: no Last mammogram: 2023 History of abnormal mammogram: no Colon cancer screening: thinks about 8 yr at [facility] Other preventative health care screenings: Issa Female Reproductive History Questions: metorrhagia: No, sexually active: Yes, dyspareunia: No and PCB: No Menopausal Treatment: No HRT, No Vaginal Estrogen, No Osphena, No OTC treatments and No prescription non-hormonal treatment ROS Const Constitutional: Denies fatigue, weight gain or weight loss Cardio Card: Denies chest pain Resp Resp: Denies cough or dyspnea on exertion GI GI: Denies abdominal pain, bloating, change in stool character, constipation or vomiting : Reports as per HPI; Denies difficulty voiding, pelvic pain, urinary frequency, urinary incontinence, urinary urgency, vaginal discharge or vaginal pruritus Exam Const General: cooperative, healthy appearing, no acute distress and well developed Orientation: alert, oriented to person and oriented to place HENMN Head: normal to inspection Neck Neck: normal visual inspection Thyroid: thyroid normal Lymphatic: no lymphadenopathy noted Chest Breast inspection: normal inspection of the breasts and normal inspection of the axillae Breast palpation: normal palpation of the breasts, normal palpation of the axillae and no axillary lymphadenopathy Resp Effort Inspection: normal respiratory effort GI Palpation: soft, no masses and nontender Rectal Exam: deferred External Female Exam: normal external appearance and normal appearance of the urethra Urethra: normal appearance of the urethra and normal palpation Speculum Exam - Vagina: normal appearance of the vagina and normal vaginal discharge Speculum Exam - Cervix: normal appearance of the cervix Bimanual Exam- Vagina Uterus: normal bimanual exam, uterine size normal, uterine shape normal and non-tender Bimanual Exam- Adnexa, other: normal adnexae, no masses, normal and non-tender Pelvic Support: normal Neuro General: patient alert and patient oriented x3 Psych Affect: normal affect Coding Level of Care Code Off vis,new,prev 40-64yrs Diagnoses Encounter for gynecological examination without abnormal finding Z01.41 (more content not included)... Normal [facility] DXA-AXIAL SKELETONon 023 [facility] CBC W Auto Differential pane l (Bld)on 03-30-2023 Basophils (Bld) [#/Vol] 0.07 10*3/uL <0.11 k/uL [facility] Basophils/100 WBC (Bld) 1.1 % [facility] Differential cell count method Nom (Bld) Auto [facility] Eosinophils (Bld) [#/Vol] 0.17 10*3/uL <0.46 k/uL [facility] Eosinophils/100 WBC (Bld) 2.6 % [facility] Erythrocyte distribution width (RBC) [Ratio] 12.8 % 11.5 - 15.0 % [facility] Hematocrit (Bld) [Volume fraction] 42.6 % 36.0 - 46.0 % [facility] Hemoglobin (Bld) [Mass/Vol] 13.8 g/dL 11.5 - 15.5 g/dL [facility] Immature granulocytes (Bld) [#/Vol] <0.10 k/uL [facility] Immature granulocytes/100 WBC (Bld) 0.2 % [facility] Lymphocytes (Bld) [#/Vol] 2.43 10*3/uL 1.00 - 4.00 k/uL [facility] Lymphocytes/100 WBC (Bld) 37.2 % [facility] MCH (RBC) [Entitic mass] 28.5 pg 26.0 - 34.0 pg [facility] MCHC (RBC) [Mass/Vol] 32.4 g/dL 30.5 - 36.0 g/dL [facility] MCV (RBC) [Entitic vol] 87.8 fL 80.0 - 100.0 fL [facility] Monocytes (Bld) [#/Vol] 0.58 10*3/uL <0.87 k/uL [facility] Monocytes/100 WBC (Bld) 8.9 % [facility] Neutrophils (Bld) [#/Vol] 3.27 10*3/uL 1.45 - 7.50 k/uL [facility] Neutrophils/100 WBC (Bld) 50.0 % [facility] Nucleated RBC (Bld) [#/Vol] <0.01 k/uL [facility] Nucleated RBC/100 WBC (Bld) [Ratio] 0.0 /100 WBC [facility] Platelet mean volume (Bld) [Entitic vol] 12.2 fL 9.0 - 12.7 fL [facility] Platelets (Bld) [#/Vol] 218 10*3/uL 150 - 400 k/uL [facility] RBC (Bld) [#/Vol] 4.85 10*6/uL 3.90 - 5.2 0 m/uL [facility] WBC (Bld) [#/Vol] 6.53 10*3/uL 3.70 - 11. 00 k/uL [facility] ROSCOE SCREENINGon 08-05-2022 [facility] STREP A MOLECULAR (POC)on Procedural Control Valid [facility] Strep A (POCT) Positive Abnormal Negative [facility] CBC W Auto Differential pane l (Bld)on 04-30-2022 Basophils (Bld) [#/Vol] 0.07 10*3/uL <0.11 k/uL [facility] Basophils/100 WBC (Bld) 0.7 % [facility] Differential cell count method Nom (Bld) Auto [facility] Eosinophils (Bld) [#/Vol] 0.12 10*3/uL <0.46 k/uL [facility] Eosinophils/100 WBC (Bld) 1.2 % [facility] Erythrocyte distribution width (RBC) [Ratio] 13.0 % 11.5 - 15.0 % [facility] Hematocrit (Bld) [Volume fraction] 42.3 % 36.0 - 46.0 % [facility] Hemoglobin (Bld) [Mass/Vol] 14.0 g/dL 11.5 - 15.5 g/dL [facility] Immature granulocytes (Bld) [#/Vol] 0.05 10*3/uL <0.10 k/uL [facility] Immature granulocytes/100 WBC (Bld) 0.5 % [facility] Lymphocytes (Bld) [#/Vol] 1.72 10*3/uL 1.00 - 4.00 k/uL [facility] Lymphocytes/100 WBC (Bld) 17.3 % [facility] MCH (RBC) [Entitic mass] 28.6 pg 26.0 - 34.0 pg [facility] MCHC (RBC) [Mass/Vol] 33.1 g/dL 30.5 - 36.0 g/dL [facility] MCV (RBC) [Entitic vol] 86.3 fL 80.0 - 100.0 fL [facility] Monocytes (Bld) [#/Vol] 0.67 10*3/uL <0.87 k/uL [facility] Monocytes/100 WBC (Bld) 6.7 % [facility] Neutrophils (Bld) [#/Vol] 7.34 10*3/uL 1.45 - 7.50 k/uL [facility] Neutrophils/100 WBC (Bld) 73.6 % [facility] Nucleated RBC (Bld) [#/Vol] <0.01 k/uL [facility] Nucleated RBC/100 WBC (Bld) [Ratio] 0.0 /100 WBC [facility] Platelet mean volume (Bld) [Entitic vol] 11.2 fL 9.0 - 12.7 fL [facility] Platelets (Bld) [#/Vol] 224 10*3/uL 150 - 400 k/uL [facility] RBC (Bld) [#/Vol] 4.90 10*6/uL 3.90 - 5.2 0 m/uL [facility] WBC (Bld) [#/Vol] 9.97 10*3/uL 3.70 - 11. 00 k/uL [facility] Comprehensive metabolic 2000 panelon 04-30-2022 Albumin [Mass/Vol] 4.4 g/dL 3.9 - 4.9 g/dL [facility] ALP [Catalytic activity/Vol] 49 U/L 34 - 123 U/L [facility] ALT [Catalytic activity/Vol] 9 U/L 7 - 38 U/L [facility] Anion gap [Moles/Vol] 9 mmol/L 9 - 18 mmol/L [facility] AST [Catalytic activity/Vol] 14 U/L 13 - 35 U/L [facility] Bilirubin [Mass/Vol] 0.2 mg/dL 0.2 - 1.3 mg/dL [facility] Calcium [Mass/Vol] 9.4 mg/dL 8.5 - 10. 2 mg/dL [facility] Chloride [Moles/Vol] 101 mmol/L 97 - 105 mmol/L [facility] CO2 [Moles/Vol] 25 mmol/L 22 - 30 mmol/L [facility] Creatinine [Mass/Vol] 0.81 mg/dL 0.58 - 0.96 mg/dL [facility] Estimated Glomerular Filtration Rate 83 mL/min/1.73m >=60 mL/min/1.73m [facility] Glucose [Mass/Vol] 107 mg/dL High 74 - 99 mg/dL [facility] Potassium [Moles/Vol] 4.0 mmol/L 3.7 - 5.1 mmol/L [facility] Protein [Mass/Vol] 6.8 g/dL 6.3 - 8.0 g/dL [facility] Sodium [Moles/Vol] 135 mmol/L Low 136 - 144 mmol/L [facility] Urea nitrogen [Mass/Vol] 10 mg/dL 7 - 21 mg/dL [facility] XR HIP GENERAL 3V PELV/AP/LA T LEFTon 11-10-2021 [facility] Comprehensive Metabolic Pane delicia 03-20-2019 Albumin [Mass/Vol] 4.3 g/dL Normal 3.5-4.6 [facility] Comment on above: Performed By: #### C MP #### [facility] [address] [place] [address] ALP [Catalytic activity/Vol] 56 U/L Normal 40-130 [facility] Comment on above: Performed By: #### C MP #### [facility] [address] [place] [address] ALT [Catalytic activity/Vol] 11 U/L Normal 0-33 [facility] Comment on above: Performed By: #### C MP #### [facility] [address] [place] [address] Anion gap [Moles/Vol] 11 mmol/L Normal 9-15 [facility] Comment on above: Performed By: #### C MP #### [facility] [address] [place] [address] AST [Catalytic activity/Vol] 17 U/L Normal 0-35 [facility] Comment on above: Performed By: #### C MP #### [facility] [address] [place] [address] Bilirubin [Mass/Vol] 0.5 mg/dL Normal 0.2-0.7 [facility] Comment on above: Performed By: #### C MP #### [facility] [address] [place] [address] Calcium [Mass/Vol] 9.4 mg/dL Normal 8.5-9.9 [facility] Comment on above: Performed By: #### C MP #### [facility] [address] [place] [address] Chloride [Moles/Vol] 104 mmol/L Normal 95-107 [facility] Comment on above: Performed By: #### C MP #### [facility] [address] [place] [address] CO2 [Moles/Vol] 26 mmol/L Normal 20-31 [facility] Comment on above: Performed By: #### C MP #### [facility] [address] [place] [address] Creatinine [Mass/Vol] 0.82 mg/dL Normal 0.50-0.90 [facility] Comment on above: Performed By: #### C MP #### [facility] [address] [place] [address] GFR/1.73 sq M predicted among blacks MDRD (S/P/Bld) [Vol rate/Area] mL/min/{1.73_m2} Normal >60 [facility] Comment on above: Result Comment: >60 mL/min/1.73m2 EGFR, calc. for ages 18 and older using the MDRD formula (not corrected for weight), is valid for stable renal function. Performed By: #### C MP #### [facility] [address] [place] [address] GFR/1.73 sq M.predicted MDRD (S/P/Bld) [Vol rate/Area] mL/min/{1.73_m2} Normal >60 [facility] Comment on above: Result Comment: >60 mL/min/1.73m2 EGFR, calc. for ages 18 and older using the MDRD formula (not corrected for weight), is valid for stable renal function. Performed By: #### C MP #### [facility] [address] [place] [address] Globulin (S) [Mass/Vol] 2.8 g/dL Normal 2.3-3.5 [facility] Comment on above: Performed By: #### C MP #### [facility] [address] [place] [address] Glucose [Mass/Vol] 79 mg/dL Normal 70-99 [facility] Comment on above: Performed By: #### C MP #### [facility] [address] [place] [address] Potassium [Moles/Vol] 4.3 mmol/L Normal 3.4-4.9 [facility] Comment on above: Performed By: #### C MP #### [facility] [address] [place] [address] Protein [Mass/Vol] 7.1 g/dL Normal 6.3-8.0 [facility] Comment on above: Performed By: #### C MP #### [facility] [address] [place] [address] Sodium [Moles/Vol] 141 mmol/L Normal 135-144 [facility] Comment on above: Performed By: #### C MP #### [facility] [address] [place] [address] Urea nitrogen [Mass/Vol] 13 mg/dL Normal 6-20 [facility] Comment on above: Performed By: #### C MP #### [facility] [address] [place] [address] VITAMIN Don 03-20-2019 VITAMIN D 58.4 ng/mL Normal 30.0-100.0 [facility] Comment on above: Result Comment: (30- 100 ng/mL) Optimum Level This assay accurately quantifies the sum of vitamin D3, 25-Hydroxy and vitamin D2, 25-Hyroxy. Performed By: #### V ITD #### [facility] [address] [place] [address] ROSCOE DIGITAL SCREEN W OR WO C AD BILATERALon 03-10-2019 ROSCOE DIGITAL SCREEN W OR WO CAD BILATERAL : 03/09/2019 CLINICAL HISTORY: Z12.31 Encounter for screening mammogram for malignant neoplasm of breast ICD10. COMPARISONS: 11/18/2017, 06/02/2016, 11/19/2014, and 01/27/2013. TECHNIQUE: Full field routine and implant displaced digital mammograms were obtained bilaterally. Implant displaced 3D breast tomosynthesis was also performed. CAD analysis was performed and used in the interpretation. FINDINGS: Both breasts remain heterogeneously dense with stable asymmetry, a few scattered microcalcifications, mild nodularity, and bilateral prosthetic implants. There are no developing masses, suspicious microcalcifications, or areas of architectural distortion identified on today's examination. There is no significant change when compared to the prior examinations identified, given differences in technique and positioning. IMPRESSION- BI-RADS 2 - BENIGN. ROUTINE FOLLOW-UP MAMMOGRAPHY IS SUGGESTED IN ONE YEAR. Board Certified Radiologists. Accredited by the ACR and FDA. MAMMOGRAPHY IS VERY IMPORTANT TO YOUR HEALTH. THE [employer] GUIDELINES RECOMMEND THAT WOMEN 40 YEARS OF AGE AND OLDER SHOULD HAVE A MAMMOGRAM EVERY YEAR. A REMINDER LETTER WILL BE SENT AT THE APPROPRIATE TIME. [facility] JAQUI Nilton, Chpo Incoming Radiant Results From AmVac/L2s - 03/10/2019 4:12 PM EDT ROSCOE DIGITAL SCREEN W OR WO CAD BILATERAL : 03/09/2019 CLINICAL HISTORY: Z12.31 Encounter for screening mammogram for malignant neoplasm of breast ICD10. COMPARISONS: 11/18/2017, 06/02/2016, 11/19/2014, and 01/27/2013. TECHNIQUE: Full field routine and implant displaced digital mammograms were obtained bilaterally. Implant displaced 3D breast tomosynthesis was also performed. CAD analysis was performed and used in the interpretation. FINDINGS: Both breasts remain heterogeneously dense with stable asymmetry, a few scattered microcalcifications, mild nodularity, and bilateral prosthetic implants. There are no developing masses, suspicious microcalcifications, or areas of architectural distortion identified on today's examination. There is no significant change when compared to the prior examinations identified, given differences in technique and positioning. IMPRESSION- BI-RADS 2 - BENIGN. ROUTINE FOLLOW-UP MAMMOGRAPHY IS SUGGESTED IN ONE YEAR. Board Certified Radiologists. Accredited by the ACR and FDA. MAMMOGRAPHY IS VERY IMPORTANT TO YOUR HEALTH. THE [employer] GUIDELINES RECOMMEND THAT WOMEN 40 YEARS OF AGE AND OLDER SHOULD HAVE A MAMMOGRAM EVERY YEAR. A REMINDER LETTER WILL BE SENT AT THE APPROPRIATE TIME. [employer] JAQUI ROSCOE DIGITAL SCREEN W OR WO C AD BILATERALon 03-09-2019 ROSCOE DIGITAL SCREEN W OR WO CAD BILATERAL ROSCOE DIGITAL SCREEN W OR WO CAD BILATERAL : 03/09/2019 CLINICAL HISTORY: Z12.31 Encounter for screening mammogram for malignant neoplasm of breast ICD10. COMPARISONS: 11/18/2017, 06/02/2016, 11/19/2014, and 01/27/2013. TECHNIQUE: Full field routine and implant displaced digital mammograms were obtained bilaterally. Implant displaced 3D breast tomosynthesis was also performed. CAD analysis was performed and used in the interpretation. FINDINGS: Both breasts remain heterogeneously dense with stable asymmetry, a few scattered microcalcifications, mild nodularity, and bilateral prosthetic implants. There are no developing masses, suspicious microcalcifications, or areas of architectural distortion identified on today's examination. There is no significant change when compared to the prior examinations identified, given differences in technique and positioning. IMPRESSION- BI-RADS 2 - BENIGN. ROUTINE FOLLOW-UP MAMMOGRAPHY IS SUGGESTED IN ONE YEAR. Board Certified Radiologists. Accredited by the ACR and FDA. MAMMOGRAPHY IS VERY IMPORTANT TO YOUR HEALTH. THE [employer] GUIDELINES RECOMMEND THAT WOMEN 40 YEARS OF AGE AND OLDER SHOULD HAVE A MAMMOGRAM EVERY YEAR. A REMINDER LETTER WILL BE SENT AT THE APPROPRIATE TIME. Interpreted by: Erik Batista MD Signed by: Erik Batista MD 03/10/19 Final result Normal [facility] US ABDOMEN LIMITEDon 018 US ABDOMEN LIMITED EXAMINATION: ULTRASO UND ABDOMEN LIMITEDCLINICAL HISTORY: R10.9 Left flank pain [id number]: NONE AVAILABLETECHNIQUE: Transabdominal sector perez-scale sonography. Only images of the left upper quadrant are submitted. Sonographic imaging was performed by a registered tool and fixture repairer and the images were submitted for interpretation.FINDINGS: Size, contour, and echogenicity of the spleen are normal. The spleen measures 3.7 x 9.1 x 10.2 cm. The left kidney measures 4.6 x 4.6 x 11.0 cm. There is no left hydronephrosis. Left renal parenchymal echotexture is normal. Duplex color Doppler sonography shows no evidence of renal hypervascularity. There are no fluid collections in the left upper quadrant.IMPRESSION: NEGATIVE ABDOMINAL ULTRASOUND EXAMINATION OF THE LEFT UPPER QUADRANT; SPECIFICALLY, THE SPLEEN AND LEFT KIDNEY HAVE A NORMAL SONOGRAPHIC APPEARANCE.Interpreted by:ALEJNADRO Voigned by:Edward Giordano MD09/16/18Final result Normal [facility] Vital Signs Date Time Vital Sign Value Performing Clinician Faci lity 10-03-2024 07:39-0400 Body temperature 97.9 [degF] Dr. Jolie Parsons MD Work Phone: [facility] 10-03-2024 07:39-0400 Diastolic blood pressure 65 mm[Hg] Dr. Jolie Parsons MD Work Phone: 1(446)[phone] [place] [address] 10-03-2024 07:39-0400 Heart rate 60 /min Dr. Jolie Parsons MD Work Phone: 6(191)[phone] [place] [address] 10-03-2024 07:39-0400 Respiratory rate 18 /min Dr. Jolie Parsons MD Work Phone: 1(579)[phone] [place] [address] 10-03-2024 07:39-0400 SaO2% (BldA) [Mass fraction] 97 % Dr. Jolie Parsons MD Work Phone: 8(317)[phone] [place] [address] 10-03-2024 07:39-0400 Systolic blood pressure 99 mm[Hg] Dr. Jolie Parsons MD Work Phone: 8(412)[phone] [place] [address] 10-03-2024 05:45-0400 Body height 160.[address] Jolie Parsons MD Work Phone: 6(682)[phone] [place] [address] 10-03-2024 05:45-0400 Body mass index (BMI) [Ratio] 21.9 kg/m2 Dr. Jolie Parsons MD Work Phone: 4(837)[phone] [place] [address] 10-03-2024 05:45-0400 Body weight 56.[address] Jolie Parsons MD Work Phone: 3(340)[phone] [address] 06-27-2024 08:32-0500 Body height 157.[address] Jolie Parsons MD Work Phone: 5(709)[phone] [address] 06-27-2024 08:32-0500 Body mass index (BMI) [Ratio] 23.3 kg/m2 Dr. Jolie Parsons MD Work Phone: 6(079)[phone] [place] [address] 06-27-2024 08:32-0500 Body weight 58.[address] Jolie Parsons MD Work Phone: 0(452)945-905522 [place] [address] 06-25-2023 13:52-0500 Body temperature 97.5 [degF] Treatment Wstr Work Phone: [facility] 06-25-2023 13:52-0500 Diastolic blood pressure 62 mm[Hg] Treatment Wstr Work Phone: [facility] 06-25-2023 13:52-0500 Heart rate 77 /min Treatment Wstr Work Phone: [facility] 06-25-2023 13:52-0500 Respiratory rate 16 /min Treatment Wstr Work Phone: [facility] 06-25-2023 13:52-0500 SaO2% (BldA) [Mass fraction] 98 % Treatment [facility]str Work Phone: [facility] 06-25-2023 13:52-0500 Systolic blood pressure 125 mm[Hg] Treatment Wstr Work Phone: [facility] 03-29-2023 15:21-0400 Body height 157.5 cm Nancy Kimberly BARN WORKER.SENIOR INSTRUCTOR Work Phone: [facility] 03-29-2023 15:21-0400 Body weight 57.15 kg Nancy Kimberly BARN WORKER.SENIOR INSTRUCTOR Work Phone: [facility] 03-29-2023 15:21-0400 Diastolic blood pressure 70 mm[Hg] Nancy Kimberly BARN WORKER.SENIOR INSTRUCTOR Work Phone: [facility] 03-29-2023 15:21-0400 Heart rate 63 /min Nancy Kimberly BARN WORKER.SENIOR INSTRUCTOR Work Phone: [facility] 03-29-2023 15:21-0400 SaO2% (BldA) [Mass fraction] 98 % Nancy Kimberly BARN WORKER.SENIOR INSTRUCTOR Work Phone: [facility] 03-29-2023 15:21-0400 Systolic blood pressure 104 mm[Hg] Nancy Kimberly BARN WORKER.SENIOR INSTRUCTOR Work Phone: [facility] 08-05-2022 08:55-0500 Body height 160 cm Jolie Hughes BARN WORKER.SENIOR INSTRUCTOR Work Phone: [facility] 08-05-2022 08:55-0500 Body weight 58.06 kg Jolie Hughes BARN WORKER.SENIOR INSTRUCTOR Work Phone: [facility] 08-05-2022 08:55-0500 Diastolic blood pressure 60 mm[Hg] Jolie Hughes BARN WORKER.SENIOR INSTRUCTOR Work Phone: [facility] 08-05-2022 08:55-0500 Systolic blood pressure 100 mm[Hg] Jolie Hughes BARN WORKER.SENIOR INSTRUCTOR Work Phone: [facility] 07-07-2022 18:42-0500 Body temperature 98.2 [degF] Joana Praisler-Wood BARN WORKER.SENIOR INSTRUCTOR Work Phone: [facility] 07-07-2022 18:42-0500 Body weight 58.97 kg Joana Canoler-Zurdo BARN WORKER.SENIOR INSTRUCTOR Work Phone: [facility] 07-07-2022 18:42-0500 Diastolic blood pressure 68 mm[Hg] Joana Praisler-Wood BARN WORKER.SENIOR INSTRUCTOR Work Phone: [facility] 07-07-2022 18:42-0500 Heart rate 80 /min Joana Praisler-Wood BARN WORKER.SENIOR INSTRUCTOR Work Phone: [facility] 07-07-2022 18:42-0500 Respiratory rate 16 /min Joana Praisler-Wood BARN WORKER.SENIOR INSTRUCTOR Work Phone: [facility] 07-07-2022 18:42-0500 SaO2% (BldA) [Mass fraction] 96 % Joana Praisler-Wood BARN WORKER.SENIOR INSTRUCTOR Work Phone: [facility] 07-07-2022 18:42-0500 Systolic blood pressure 122 mm[Hg] Joana Praisler-Wood BARN WORKER.SENIOR INSTRUCTOR Work Phone: [facility] 04-30-2022 09:05-0400 Body temperature 97.9 [degF] Treatment Wstr Work Phone: [facility] 04-30-2022 09:05-0400 Diastolic blood pressure 64 mm[Hg] Treatment Wstr Work Phone: [facility] 04-30-2022 09:05-0400 Heart rate 78 /min Treatment Wstr Work Phone: [facility] 04-30-2022 09:05-0400 Systolic blood pressure 124 mm[Hg] Treatment Wstr Work Phone: [facility] 04-16-2022 08:07-0400 Body height 162.1 cm Mitchell An MD Work Phone: [facility] 04-16-2022 08:07-0400 Body weight 58.6 kg Mitchell An MD Work Phone: [facility] 04-16-2022 08:07-0400 Diastolic blood pressure 68 mm[Hg] Mitchell An MD Work Phone: [facility] 04-16-2022 08:07-0400 Heart rate 65 /min Mitchell An MD Work Phone: [facility] 04-16-2022 08:07-0400 Respiratory rate 16 /min Mitchell An MD Work Phone: [facility] 04-16-2022 08:07-0400 SaO2% (BldA) [Mass fraction] 98 % Mitchell An MD Work Phone: [facility] 04-16-2022 08:07-0400 Systolic blood pressure 118 mm[Hg] Mitchell An MD Work Phone: [facility] 11-17-2021 08:00-0400 Diastolic blood pressure 74 mm[Hg] Amaury Golias PT Work Phone: [facility] 11-17-2021 08:00-0400 Systolic blood pressure 106 mm[Hg] Amaury Golias PT Work Phone: [facility] 10-27-2021 13:38-0400 Body weight 56.7 kg Mitchell An MD Work Phone: [facility] 10-27-2021 13:38-0400 Diastolic blood pressure 64 mm[Hg] Mitchell An MD Work Phone: [facility] 10-27-2021 13:38-0400 Heart rate 76 /min Mitchell An MD Work Phone: [facility] 10-27-2021 13:38-0400 Respiratory rate 12 /min Mitchell An MD Work Phone: [facility] 10-27-2021 13:38-0400 SaO2% (BldA) [Mass fraction] 94 % Mitchell An MD Work Phone: [facility] 10-27-2021 13:38-0400 Systolic blood pressure 122 mm[Hg] Mitchell An MD Work Phone: [facility] Encounters Encounter Date Encounter Type Care Provider Facility Start: 12-19-2024 End: 01-19-2025 Admission to same day surgery center Mitchell An MD Work Phone: Ambulatory Surgery Comment on above: Outpatient [place] py (Patient is overdue for colorectal cancer screening since 10/10/2023. Please schedule open access colonoscopy. /) Start: 12-19-2024 End: 01-19-2025 ambulatory Mitchell An MD Work Phone: Ambulatory Surgery Start: 10-03-2024 ambulatory Jolie Parsons [place] [facility] [place]: 10-03-2024 Non-patient / Non-visit Vinnie De La Cruz nd DO -[facility] Start: 10-03-2024 End: 10-03-2024 Admission to same day surgery center Vinnie Enrique DO -Endoscopy Work Phone: Start: 10-03-2024 End: 10-03-[address] Jolie Parsons MD Work Phone: [facility] Work Phone: Start: 09-15-2024 End: 09-15-[address] Jolie Parsons MD Work Phone: [facility] Work Phone: Start: 09-15-2024 End: 09-15-[address] Julius Monsalve MD -Radiology, [place] Work Phone: Start: 09-15-2024 End: 09-15-2024 ambulatory Jolie Floydlliff Facility:[facility] Start: 08-08-2024 End: 09-08-2024 ambulatory Mitchell An MD Work Phone: [facility] [place] Start: 07-06-2024 End: 07-06-2024 Patient encounter procedure Jessica Appiah ROLLER MACHINE [facility] -Outpatient Breast Imaging Work Phone: Start: 07-06-2024 End: 07-06-2024 ambulatory Jolie S Jolliff Facility:[facility] Start: 06-27-2024 Non-patient / Non-visit Dr. Erica Parsons MD Work Phone: -[facility] Work Phone: Start: 06-27-2024 ambulatory Jolie S Mariellliff [place] [facility] Start: 06-05-2024 End: 06-05-2024 Orders Only Nancy Harris APRN.SENIOR INSTRUCTOR Work Phone: Internal Medicine [place] Start: 05-08-2024 End: 05-08-2024 ambulatory Jolie S Marielllkalia [place] Start: 11-02-2023 ambulatory Nancy SOTELOSENIOR INSTRUCTOR Work Phone: Internal Medicine [place] Comment on above: DXA done density Start: 09-08-2023 ambulatory Mitchell Vora Work Phone: Internal Medicine [facility] Start: 06-25-2023 End: 06-25-2023 ambulatory Treatment Rm 10 [facility] Work Phone: Hematology/Oncology Comment on above: Age-related osteopor osis without current pathological fracture (Primary Dx) Start: 05-18-2023 End: 05-18-2023 Subsequent hospital visit by physician Bone Density [facility] Work Phone: Radiology Comment on above: Age-related osteopor osis without current pathological fracture [M81.0] Start: 05-04-2023 Telephone encounter Nba dailey MD Work Phone: Hematology/Oncology Comment on above: Orders Start: 03-29-2023 End: 03-29-2023 Patient encounter procedure Nancy Harris BARN WORKER.SENIOR INSTRUCTOR Work Phone: Internal Medicine [place] Comment on above: Wellness examination (Primary Dx); Age-related osteoporosis without current pathological fracture; Multiple thyroid nodules; Sleep disorder; Mood changes; Vitamin D deficiency; Encounter for immunization; Encounter for therapeutic drug monitoring Start: 03-29-2023 End: 03-29-2023 Patient encounter status Nancy Harris APRN.CNP Work Phone: [facility] Work Phone: Start: 08-06-2022 Documentation procedure Mammog ruben Coordinator [facility] Start: 08-06-2022 Letter encounter Mammography Coordinator [facility] Department Start: 08-05-2022 End: 08-05-2022 Patient encounter procedure Jolie Hughes APRN.CNP Work Phone: OB/Gynecology Comment on above: Encounter for gyneco logical examination (general) (routine) without abnormal findings (Primary Dx); Encounter for screening mammogram for breast cancer Start: 08-05-2022 End: 08-05-2022 Patient encounter status Jolie Hughes APRN.CNP Work Phone: OB/Gynecology Start: 08-05-2022 End: 08-05-2022 Subsequent hospital visit by physician Screen Mammo [facility] Mammogram Comment on above: Encounter for screen ing mammogram for breast cancer [Z12.31] Start: 07-23-2022 E-mail encounter fro m caregiver Trisha Roth APRN.CNP Work Phone: [facility] Start: 07-23-2022 Patient encounter procedure Trisha Roth APRN.CNP Work Phone: OB/Gynecology Comment on above: 07/23/22 appointment Start: 07-08-2022 ambulatory Mitchell Vora Work Phone: Internal Medicine [facility] [place] Start: 07-07-2022 End: 07-07-2022 Patient encounter procedure Joana Iqbal APRN.CNP Work Phone: [facility] Comment on above: Sore throat (Primary Dx); Strep throat Start: 05-12-2022 ambulatory Mitchell Vora Work Phone: Internal Medicine [place] Comment on above: Denial for Zoledroni c Acid Start: 05-08-2022 End: 05-08-2022 ambulatory Mi Nurse Work Phone: Family Medicine [place] Start: 04-30-2022 Patient encounter procedure Kileygarrett Rees APRN.SENIOR INSTRUCTOR Work Phone: Internal Medicine [place] Start: 04-30-2022 Telephone encounter Kiley Rees APRN.SENIOR INSTRUCTOR Work Phone: [facility] [place] Comment on above: Orders Lab Order Request Start: 04-30-2022 End: 04-30-2022 ambulatory Treatment Rm 5 [facility] Work Phone: Hematology/Oncology Comment on above: Age-related osteopor osis without current pathological fracture (Primary Dx) Start: 04-16-2022 End: 04-16-2022 Patient encounter procedure Mitchell An MD Work Phone: [facility] [place] Comment on above: Annual physical exam (Primary Dx); Osteopenia of multiple sites; Height loss; Vitamin D deficiency; High risk for fracture due to osteoporosis by DEXA scan Start: 12-01-2021 End: 12-01-2021 ambulatory Amaury Golias PT Work Phone: [facility] Comment on above: Lumbar disc herniati on with radiculopathy (Primary Dx) Start: 11-28-2021 End: 11-28-2021 ambulatory Amaury Golias PT Work Phone: [facility] Comment on above: Lumbar disc herniati on with radiculopathy (Primary Dx) Start: 11-17-2021 End: 11-17-2021 OT/PT/Speech Visit Aamury Golias PT Work Phone: [facility] Comment on above: Chronic bilateral lo w back pain without sciatica; Lumbar disc herniation with radiculopathy; Intervertebral disc disorder with radiculopathy of lumbar region Start: 11-10-2021 End: 11-10-2021 Subsequent hospital visit by physician [place] [facility] Work Phone: Radiology Comment on above: Pain in left hip [M2 5.552] Start: 11-04-2021 Orders Only Jossue Gutierrez MD Work Phone: Orthopaedics Comment on above: Pain in left hip (Pr imary Dx) Start: 10-27-2021 Telephone encounter Yadira Steel ( Coord) Radiology Comment on above: Appointment Start: 10-27-2021 End: 10-27-2021 Patient encounter procedure Mitchell An MD Work Phone: [facility] [place] Comment on above: Left hip pain (Prima ry Dx); Lipid screening; Elevated blood sugar Start: 08-22-2020 End: 08-22-2020 Patient encounter procedure External Provider [facility] Start: 08-22-2020 Results Only External Provider [facility] Start: 03-09-2019 End: 03-12-2019 Patient encounter procedure ERIK J [facility] Start: 03-09-2019 End: 03-11-2019 Subsequent hospital visit by physician Marily Mammogram [facility] Comment on above: Encounter for screen ing mammogram for malignant neoplasm of breast Start: 09-16-2017 End: 09-19-2017 [facility] Procedures Date Procedure Procedure Detail Performing Clinician Start: 10-03-[address] Jolie Parsons MD Work Phone: Start: 09-15-2024 Plain x-ray of pelvis and lower extremity Dr. Jolie Parsons MD Work Phone: Start: 07-06-[address] Jolie Parsons MD Work Phone: Start: 05-18-2023 Dxa bone density study 1/> sites axial skel Nancy Harris BARN WORKER.SENIOR INSTRUCTOR Work Phone: Start: 03-29-2023 INFLUENZA VACCINE, AGE 6 MO - 64 YR, QUADRIVALENT (AFLURIA, FLULAVAL, FLUZONE) Nancy Harris BARN WORKER.SENIOR INSTRUCTOR Work Phone: Start: 08-05-2022 End: 08-05-2022 Mammography Bulk Order Provider Start: 07-07-2022 STREP A MOLECULAR (POC) Amanda Sweetie Allisony PA-C Work Phone: Start: 05-08-2022 INFLUENZA VACCINE QUADRIVALENT 6 MO - 64 YRS IM Mitchell An MD Work Phone: Start: 11-10-2021 Radex hip unilateral with pelvis 2-3 views Jossue Gutierrez MD Work Phone: Start: 10-31-2021 Lipid 1996 panel - Serum or Plasma Nancy Harris APRN.SENIOR INSTRUCTOR Work Phone: Start: 03-19-2021 Mammography Mitchell An MD Work Phone: Start: 09-08-2020 Adult depression screening assessment Mitchell An MD Work Phone: Start: 08-22-2020 EXTERNAL IMAGING External Provider Start: 03-09-2019 Screening mammography bi 2-view breast inc cad ERIK BATISTA Start: 03-09-2019 Screening digital breast tomosynthesis bi Erik Batista Work Phone: Start: 09-16-2017 Us abdominal real time w/image limited MEJIA PIERRE Start: 10-09-2013 Colonoscopy Mithcell An MD Work Phone: Start: 01-27-2013 H/O: tubal ligation S/P tubal ligation Mitchell An MD Work Phone: Start: 01-27-2013 Mammography External Provider Start: 04-05-2012 Adult depression screening assessment External Provider Start: 03-30-2012 History of augmentation of breast Status post breast augmentation Mitchell An MD Work Phone: Plan of Treatment Date Care Activity Detail Author Start: 2036 RSV Vaccine (1 - 1-d ose 75+ series) RSV Vaccine (1 - 1-dose 75+ series) [facility] Start: 10-31-2026 Lipid 1996 panel - Serum or Plasma Lipid Screening [facility] Start: 10-31-2026 Lipid panel Lipid Screening [facility] Start: 10-31-2026 LIPID SCREEN LIPID SCREEN [facility] Start: 06-25-2026 Diabetes Screening Diabetes Screenin g [facility] Start: 05-04-2026 DTaP/Tdap/Td vaccine (5 - Td) DTaP/Tdap/Td vaccine (5 - Td) [place] Start: 05-04-2026 Urine microalbumin profile [facility] Start: 03-29-2026 Diabetes Screening Diabetes Screenin g [facility] Start: 02-27-2026 HPV TESTING HPV TESTING [facility] Start: 02-27-2026 PAP TESTING PAP TESTING [facility] Start: 02-27-2026 Screening for malign ant neoplasm of cervix [facility] Start: 05-03-2025 LIPID SCREEN LIPID SCREEN [facility] Start: 04-30-2025 DIABETES SCREEN DIABETES SCREEN [facility] Start: 04-30-2025 Diabetes Screening Diabetes Screenin g [facility] Start: 03-12-2025 Influenza vaccination Influenza Vacc ine (#1) [facility] Start: 10-31-2024 DIABETES SCREEN DIABETES SCREEN [facility] Start: 10-03-2024 Patient discharge [facility] Start: 04-25-2024 DIABETES SCREEN DIABETES SCREEN [facility] Start: 03-12-2024 Covid-19 Vaccine ( season) Covid-19 Vaccine ( season) [facility] Start: 03-12-2024 Influenza vaccination Influenza Vacc ine (#1) [facility] Start: 10-10-2023 Colon cancer screen colonoscopy Colon cancer screen colonoscopy [place], [place] Start: 10-10-2023 Colonoscopy COLONOSCOPY [facility] Start: 10-10-2023 COLORECTAL CANCER SCREENING COLORECTAL CANCER SCREENING [facility] Start: 10-10-2023 Screening for malign ant neoplasm of colon [facility] Start: 08-05-2023 Mammography [facility] Start: 08-05-2023 Screening for malign ant neoplasm of breast Mammogram Screening [facility] Start: 07-12-2023 Behavioral Health Screening Behavioral Health Screening [facility] Start: 07-12-2023 Depression Assessment Depression Ass essment [facility] Start: 05-05-2023 End: 08-04-2023 Comprehensive metabolic 2000 panel - Serum or Plasma COMP METABOLIC PANEL Lab Routine Encounter for therapeutic drug monitoring Expected: 05/05/2023, Expires: 08/04/2023 [facility] Work Phone: Comment on above: Expected: 05/05/2023 , Expires: 08/04/2023 Start: 03-29-2023 End: 05-29-2023 25-hydroxyvitamin D3 [Mass/volume] in Serum or Plasma [facility] Work Phone: Comment on above: Expected: 03/29/2023 , Expires: 05/29/2023 Start: 03-29-2023 End: 05-29-2023 Comprehensive metabolic 2000 panel - Serum or Plasma [facility] Work Phone: Comment on above: Expected: 03/29/2023 , Expires: 05/29/2023 Start: 03-29-2023 End: 05-29-2023 Thyrotropin [Units/volume] in Serum or Plasma [facility] Work Phone: Comment on above: Expected: 03/29/2023 , Expires: 05/29/2023 Start: 03-12-2023 Covid-19 Vaccine () Covid-19 Vaccine () [facility] Start: 07-12-2022 DEPRESSION ASSESSMENT DEPRESSION ASS ESSMENT [facility] Start: 04-16-2022 End: 04-16-2023 25-hydroxyvitamin D3 [Mass/volume] in Serum or Plasma [facility] Work Phone: Comment on above: Expected: 04/16/2022 , Expires: 04/16/2023 Start: 03-19-2022 Mammography MAMMOGRAM [facility] Start: 03-12-2022 Influenza vaccination INFLUENZA (#1) [facility] Start: 10-27-2021 End: 12-27-2021 Hemoglobin A1c/Hemoglobin.total in Blood HGB A1C Lab Routine Elevated blood sugar Expected: 10/27/2021, Expires: 12/27/2021 [facility] Work Phone: Comment on above: Expected: 10/27/2021 , Expires: 12/27/2021 Start: 10-27-2021 End: 12-27-2021 LIPID PANEL BASIC LIPID PANEL BASIC Lab Routine Lipid screening Expected: 10/27/2021, Expires: 12/27/2021 [facility] Work Phone: Comment on above: Expected: 10/27/2021 , Expires: 12/27/2021 Start: 09-26-2021 COVID-19 VACCINE (3 - Booster for South series) COVID-19 VACCINE (3 - Booster for South series) [facility] Start: 09-08-2021 Adult depression screening assessment DEPRESSION SCREENING [facility] Start: 07-24-2021 COVID-19 VACCINE (3 - Booster for South series) COVID-19 VACCINE (3 - Booster for South series) [facility] Start: 05-04-2021 Lipid screen Lipid screen [place], [place] Start: 2021 RSV Vaccine (1 - 1-d ose 60+ series) RSV Vaccine (1 - 1-dose 60+ series) [facility] Start: 03-09-2021 Breast cancer screen Breast cancer s creen [place], [place] Start: 11-29-2020 Cervical cancer screen Cervical canc er screen [place] Start: 03-12-2020 Influenza vaccination INFLUENZA (#1) [facility] Start: 03-12-2019 Influenza vaccination Flu vaccine (# 1) [place] Start: 01-27-2018 PAP TESTING PAP TESTING [facility] Start: 04-03-2016 HPV TESTING HPV TESTING [facility] Start: 01-27-2014 Mammography MAMMOGRAM [facility] Start: 04-05-2013 Adult depression screening assessment DEPRESSION SCREENING [facility] Start: 2011 Pneumococcal Vaccine : 50+ (1 of 1 - PCV) Pneumococcal Vaccine: 50+ (1 of 1 - PCV) [facility] Start: 2011 Screening for malign ant neoplasm of colon [facility] Start: 2011 Shingles Vaccine (1 of 2) Shingles Vaccine (1 of 2) [place] Start: 2011 SHINGRIX VACCINE (1 of 2) SHINGRIX VACCINE (1 of 2) [facility] Start: 04-11-2011 LIPID SCREEN LIPID SCREEN [facility] Start: 04-11-2009 DIABETES SCREEN DIABETES SCREEN [facility] Start: 2006 COLOGUARD (FIT-DNA) COLOGUARD (FIT-D NA) [facility] Start: [address] COLONOGRAPHY [facility] Start: 2006 FECAL OCCULT BLOOD FECAL OCCULT BLOO D [facility] Start: 2006 Screening for malign ant neoplasm of colon [facility] Start: 2006 SIGMOIDOSCOPY SIGMOIDOSCOPY [facility] Start: 1980 Urine microalbumin profile DTAP,TDAP,TD (1 - Tdap) [facility] Start: 1979 Anxiety Screening Anxiety Screening [facility] Start: 1979 Depression Screening Depression Scre ening [facility] Start: 1979 HEPATITIS C SCREENING HEPATITIS C SC REENING [facility] Start: 1979 HIV SCREENING HIV SCREENING [facility] Colonoscopy [facility] End: 09-07-2025 DBT Breast - bilateral screening ROSCOE SCREENING W GARCIA Radiology Routine Encounter for screening mammogram for breast cancer 1 Occurrences starting 08/08/2024 until 09/07/2025 [facility] Work Phone: Comment on above: 1 Occurrences starti ng 08/08/2024 until 09/07/2025 End: 08-07-2023 ROSCOE SCREENING ROSCOE SCREENING Radiology Routine Encounter for screening mammogram for breast cancer 1 Occurrences starting 07/08/2022 until 08/07/2023 [facility] Work Phone: Comment on above: 1 Occurrences starti ng 07/08/2022 until 08/07/2023 End: 09-04-2023 ROSCOE SCREENING ROSCOE SCREENING Radiology Routine Encounter for gynecological examination (general) (routine) without abnormal findings Encounter for screening mammogram for breast cancer 1 Occurrences starting 08/05/2022 until 09/04/2023 [facility] Work Phone: Comment on above: 1 Occurrences starti ng 08/05/2022 until 09/04/2023 End: 10-07-2024 MG Breast Screening ROSCOE SCREENING Radiology Routine Encounter for screening mammogram for breast cancer 1 Occurrences starting 09/08/2023 until 10/07/2024 [facility] Work Phone: Comment on above: 1 Occurrences starti ng 09/08/2023 until 10/07/2024 Patient referral [facility] Work Phone: PT PLAN OF CARE CERTIFICATION PT PLAN OF CARE CERTIFICATION Procedures Routine Chronic bilateral low back pain without sciatica 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 Ordered: 11/17/2021 [facility] Work Phone: Comment on above: Ordered: 11/17/2021 End: 11-26-2022 Us compl joint r-t w/image documentation US HIP LT Radiology Routine Left hip pain 1 Occurrences starting 10/27/2021 until 11/26/2022 [facility] Work Phone: Comment on above: 1 Occurrences starti ng 10/27/2021 until 11/26/2022 End: 12-04-2022 XR HIP GENERAL 3V PELV/AP/LAT LEFT XR HIP GENERAL 3V PELV/AP/LAT LEFT Radiology Routine Pain in left hip 1 Occurrences starting 11/04/2021 until 12/04/2022 [facility] Work Phone: Comment on above: 1 Occurrences starti ng 11/04/2021 until 12/04/2022 [facility] Immunizations Immunization Date Immunization Notes Care Provider Lis anna 03-29-2023 influenza, injectabl e, quadrivalent, contains preservative Nancy Harris BARN WORKER.SENIOR INSTRUCTOR Work Phone: [facility] Work Phone: 03-29-2023 influenza virus vaccine, unspecified formulation Nancy Kimberly BARN WORKERTenishaSENIOR INSTRUCTOR Work Phone: [facility] 05-08-2022 influenza, injectabl e, quadrivalent, contains preservative Mi Nurse Work Phone: [facility] Work Phone: 05-29-2021 COVID-19 vaccine, ag e 12+ yr ([employer] - [facility]) Mitchell An MD Work Phone: [facility] Work Phone: 05-29-2021 zoster vaccine recombinant Mitchell An MD Work Phone: [facility] Work Phone: 04-11-2021 influenza, injectabl e, quadrivalent, contains preservative Mitchell An MD Work Phone: [facility] Work Phone: 03-06-2021 zoster vaccine recombinant Mitchell An MD Work Phone: [facility] Work Phone: 09-19-2020 COVID-19 vaccine (SOUTH) Mitchell An MD Work Phone: [facility] Work Phone: 05-10-2020 influenza, injectabl e, quadrivalent, contains preservative Nancy Kimberly BARN WORKER.SENIOR INSTRUCTOR Work Phone: [facility] Work Phone: 03-28-2019 influenza, injectabl e, quadrivalent, contains preservative Nancy Kimberly BARN WORKER.SENIOR INSTRUCTOR Work Phone: [facility] Work Phone: 04-21-2017 influenza, injectabl e, quadrivalent, contains preservative [facility] Work Phone: 05-04-2016 influenza, injectabl e, quadrivalent, preservative free [facility] Work Phone: 05-04-2016 tetanus toxoid, redu nelly diphtheria toxoid, and acellular pertussis vaccine, adsorbed [facility] 05-16-2015 influenza, injectabl e, quadrivalent, preservative free Nancy Kimberly BARN WORKER.SENIOR INSTRUCTOR Work Phone: [facility] Work Phone: 05-15-2015 influenza virus vaccine, whole virus [facility] Work Phone: 05-09-2014 influenza, injectabl e, quadrivalent, preservative free Nancy Kimberly BARN WORKER.SENIOR INSTRUCTOR Work Phone: [facility] Work Phone: 05-02-2009 novel [id number], preservative-free, injectable Nancy Kimberly BARN WORKER.SENIOR INSTRUCTOR Work Phone: [facility] Work Phone: 04-29-2009 influenza virus vaccine, whole virus Nancy Kimberly BARN WORKER.SENIOR INSTRUCTOR Work Phone: [facility] Work Phone: 05-25-2008 influenza virus vaccine, whole virus Nancy Kimberly BARN WORKER.SENIOR INSTRUCTOR Work Phone: [facility] Work Phone: 07-21-2006 diphtheria, tetanus toxoids and acellular pertussis vaccine, unspecified formulation Nancy Kimberly BARN WORKER.[facility] Work Phone: [facility] Work Phone: 07-21-2006 haemophilus influenz ae type b vaccine, conjugate unspecified formulation Nancy Kimberly BARN WORKER.SENIOR INSTRUCTOR Work Phone: [facility] Work Phone: 07-21-2006 poliovirus vaccine, inactivated Nancy Kimberly BARN WORKER.SENIOR INSTRUCTOR Work Phone: [facility] Work Phone: 03-17-2006 measles, mumps and rubella virus vaccine Nancy Kimberly BARN WORKER.SENIOR INSTRUCTOR Work Phone: [facility] Work Phone: 11-18-2005 haemophilus influenz ae type b vaccine, conjugate unspecified formulation Nancy Kimberly BARN WORKER.SENIOR INSTRUCTOR Work Phone: [facility] Work Phone: 11-18-2005 tetanus toxoid, redu nelly diphtheria toxoid, and acellular pertussis vaccine, adsorbed Anncy Kimberly BARN WORKER.SENIOR INSTRUCTOR Work Phone: [facility] Work Phone: 02-11-1998 hepatitis B vaccine, pediatric or pediatric/adolescent dosage Nancy Kimberly BARN WORKER.SENIOR INSTRUCTOR Work Phone: [facility] Work Phone: 09-05-1997 hepatitis B vaccine, pediatric or pediatric/adolescent dosage Nancy Kimberly BARN WORKER.SENIOR INSTRUCTOR Work Phone: [facility] Work Phone: 07-25-1997 hepatitis B vaccine, pediatric or pediatric/adolescent dosage Nancy Alfordr BARN WORKER.SENIOR INSTRUCTOR Work Phone: [facility] Work Phone: 02-11-1989 measles, mumps and rubella virus vaccine Nancy Kimberly BARN WORKER.SENIOR INSTRUCTOR Work Phone: [facility] Work Phone: 09-24-1987 diphtheria, tetanus toxoids and acellular pertussis vaccine, unspecified formulation Nancy Kimberly BARN WORKER.SENIOR INSTRUCTOR Work Phone: [facility] Work Phone: Payers Date Payer Category Payer Self-pay 2021 Private Health Insurance DESIRAE [id number] 2021 Unknown DESIRAE DESIRAE RICHARDSON / DESIRAE [id number] 2021-Present [phone] [address] [address] [place] [address] EPO [id number] 2021 Unknown [id number] 2019 Unknown MMO MMO [employer] [id number] 2019-Present PPO [id number] 2014 Unknown [id number] 2014 Unknown [employer] M [employer] [address] xxxxxxxxxxxx 2014-Present [phone] [address] [place] [address] xxxxxxxxxxxx [id number] 1961 Unknown [id number] Unknown [id number] Unknown [id number] Unknown [id number] Unknown [id number] Unknown [id number] Unknown [id number] Social History Date Type Detail Facility Start: 02-02-2015 End: 04-16-2022 Tobacco smoking status NHIS Former smoker [facility] Start: 07-12-1971 End: 07-16-1986 History of tobacco use Current smoker [place], [place] Start: 07-12-1971 End: 07-12-1979 History of tobacco use Cigarette Smoker [facility] Start: 02-02-2015 End: 03-28-2023 Cigarettes smoked current (pack per day) - Reported [facility] Start: 02-02-2015 End: 04-16-2022 Tobacco use and exposure Never used [facility] Start: 02-02-2015 End: 03-29-2023 Alcohol intake Current drinker of alcohol (finding) [facility] Start: 1960 Sex Assigned At Not on file M [place], [place] Start: 11-25-2017 End: 03-28-2023 Alcohol intake Yes [facility] Start: 11-25-2017 Alcohol Comment Occassionally [facility], JAQUI Start: 10-25-2021 End: 04-14-2022 History SDOH Alcohol Frequency 3 [facility] Start: 10-25-2021 End: 04-14-2022 History SDOH Alcohol Std Drinks 1 [facility] Start: 10-25-2021 History SDOH Alcohol Binge 2 [facility] Start: 10-25-2021 History SDOH Social Connections Phone 5 [facility] Start: 10-17-2020 Education 12 [facility] Start: 1960 Sex Assigned At Female [facility] Start: 10-21-2021 End: 04-16-2022 Exposure to SARS-CoV-2 (event) Not sure [facility] Work Phone: Has the [employer], gas, oil, or water [employer] threatened to shut off services in your home in past 12Mo No [facility] Are you now , , , , never or living with a partner? [facility] How often to you hav e a drink containing alcohol? 2-4 times a month [facility] How many standard drinks containing alcohol do you have on a typical day? 1 or 2 [facility] How often do you hav e 6 or more drinks on 1 occasion? Never [facility] How hard is it for you to pay for the very basics like food, housing, medical care, and heating Not hard at all [facility] Do you feel stress - tense, restless, nervous, or anxious, or unable to sleep at night because your mind is troubled all the time - these days [OSQ] To some extent [facility] (I/We) worried whether (my/our) food would run out before (I/we) got money to buy more. Never true [facility] Start: 10-17-2020 Gender identity Identifies as female gender (santos) [facility] Start: 09-08-2020 Sexual orientation Heterosexual (poncho rondon) [facility] How often do you hav e 6 or more drinks on 1 occasion? Less than monthly [facility] Do you feel stress - tense, restless, nervous, or anxious, or unable to sleep at night because your mind is troubled all the time - these days [OSQ] Only a little [facility] Start: 05-08-2024 End: 09-29-2024 Tobacco smoking status NHIS Never smoked tobacco (finding) [facility] Start: 09-26-2024 End: 10-03-2024 Sex Female (finding) [facility] NEGATED: Highlighted row Not [facility] Medical Equipment Procedure Code Equipment Code Equipment Origin al Text Equipment Identifier Dates Pnt-Pb-Z-Kind Implant - [id number] Start: 03-29-2012 Comment on above: Description: ricky loza silicone-filled breast implant Urm-Eq-Y-Kind Implant - [id number] Start: 03-29-2012 Comment on above: Description: ricky loza silicone-filled breast implant Goals Date Patient Goal Desired Activity /State Functional Status Date Assessment Result Facility 07-02-2014 Are you deaf, or do you have serious difficulty hearing No 07/02/2014 10:20 AM Ruth Wright LPN No [facility] 07-02-2014 Are you blind, or do you have serious difficulty seeing, even when wearing glasses No 07/02/2014 10:20 AM Ruth Wright LPN No [facility] 07-02-2014 Do you have serious difficulty walking or climbing stairs No 07/02/2014 10:20 AM Ruth Wright LPN No [facility] 07-02-2014 Do you have difficul ty dressing or bathing No 07/02/2014 10:20 AM Ruth Wright LPN No [facility] 07-02-2014 Because of a physica l, mental, or emotional condition, do you have difficulty doing errands alone such as visiting a physician's office or shopping No 07/02/2014 10:20 AM Ruth Wright LPN No [facility] Mental Status Date Assessment Result Facility 10-03-2024 Cognitive function Voice/Name [facility] Work Phone: 07-02-2014 Because of a physica l, mental, or emotional condition, do you have serious difficulty concentrating, remembering, or making decisions No 07/02/2014 10:20 AM Ruth Wright LPN No [facility] Clinical Notes 10-27-2021 to 01-01-2025 Jessica Bernardo - 01/01/2025 10:53 AM EDTBJessica davidson - 12/21/2024 1:18 PM EDTPatient Instructions Note Date & Type Note Facility 01-01-2025 Note HNO ID: [id number] Author: ?, ?, ? Service: ? Author Type: ? Type: Progress Notes Filed: 01/19/2025 03:06 Note Text: Spoke with patient, she switched pcp due to insurance and had colonoscopy done already. [facility] 01-01-2025 History of Presen t illness Narrative Spoke with patient, she switched pcp due to insurance and had colonoscopy done already. 1st attempt LVM to schedule colonoscopy documented in this encounter [facility] 12-21-2024 Note HNO ID: [id number] Author: ?, ?, ? Service: ? Author Type: ? Type: Progress Notes Filed: 01/19/2025 03:06 Note Text: 1st attempt LVM to schedule colonoscopy [facility] 12-19-2024 Instructions Robina Matias RN - 12/19/2024 1:45 PM EDT COLONOSCOPY BOWEL PREPARATION INSTRUCTIONS MiraLAX Your doctor has scheduled you for a colonoscopy. To have a successful colonoscopy, you must have a clean colon, that is empty. A clean colon allows your doctor to see the entire colon & diagnose issues like polyps or cancer. For doctors, a clean colon is like driving on a leta day; a dirty colon like driving in a storm. It is very important that you follow these instructions exactly, or your colonoscopy may not be as effective, could be canceled, and you may need to do the bowel prep and colonoscopy again. TRANSPORTATION REQUIREMENTS You are receiving IV sedation. For your safety, a responsible adult escort must accompany you to and from your procedure: Your adult escort MUST be present with you at check-in for your colonoscopy. Your adult escort MUST remain in the endoscopy area until you are discharged. Your adult escort MUST transport you home once you are discharged. You are NOT allowed to operate any form of transportation (i.e. drive a car, bicycle, etc) or leave the Endoscopy Center ALONE. It is not safe to do so. If you cannot meet these requirements, your procedure will be canceled. MEDICATION REQUIREMENTS For your safety, certain medications will need to be stopped or adjusted before you can have your procedure: BLOOD THINNERS: If you take blood thinners, such as Coumadin (warfarin), Plavix (clopidogrel), Ticlid (ticlopidine hydrochloride), Agrylin (anagrelide), Xarelto (Rivaroxaban), Pradaxa (Dabigatran), Eliquis (Apixaban), or Effient (Prasugrel), contact the physician who is prescribing these medications at least 2 weeks prior to your procedure to discuss any necessary adjustments. DIABETES: If you take medications for diabetes, your dosage may need to be adjusted. If you are being treated for diabetes with insulin, diabetic pills, or other injectable medications do not take your REGULAR dose after midnight on the day of your procedure. If you are taking any other types of insulin such as Lantus, Humalog, NPH (long-acting insulin), or 70/30 insulin, take half your normal dose the day before your procedure. DIABETES/WEIGHT MANAGEMENT: If you take medications for weight-loss, your dosage may need to be adjusted Contact the doctor who prescribes this medication for further instructions. If you take medications for weight-loss like semaglutide (Ozempic, Wegovy, Rybelsus), dulaglutide (Trulicity), liraglutide (Victoza, Saxenda), exenatide (Byetta, Bydureon), or lixisenatide (Adylyxin), stop your medication 1 week prior to your procedure. If you take medications like canagliflozin (Invokana), dapagliflozin (Farxiga, Forxiga), empagliflozin (Jardiance), stop your medication 3 days prior to your procedure. If you take ertugliflozin (Steglatro) stop your medication 4 days prior to your procedure. IRON: If you take iron pills, STOP them 1 week BEFORE your procedure, may resume after. OTHER MEDS: May take all other medications (including aspirin, antibiotics, water pills / diuretics like Lasix or Metolozone, blood pressure meds, etc.) at their usual scheduled time with water. DIET REQUIREMENTS The day before your colonoscopy, you may have a clear liquid diet (see below). The day of your colonoscopy, you may continue a clear liquid diet until 3 hours before your colonoscopy. Within 3 hours of your colonoscopy, take only any medications (as above) with a sip of water. Clear Liquid Diet Broth (chicken, beef or vegetable broth or bullion. Just the broth, no solids). Water Coffee or Tea (NO milk or creamer), but sugar and sugar substitutes are allowed. Clear liquids including clear, yellow, green, blue (NO red, NO orange, NO purple) Sodas / soft drinks; Gatorade or other sports drinks Fruit juice (strained; no-pulp); Kraig-Aid or flavored drinks Plain Jell-O or other gelatins Popsicles or hard candy Bowel prep can work differently from person to person. Some people's bowels move slowly and they may need different instructions. Please see your doctor in office or virtually for personalized bowel prep instructions if you have: BOWEL PREPARATION (MIRALAX/GATORADE) Split Dosing Bowel Prep: This means drinking your bowel prep in two doses. Split dosing helps clean your colon better and makes it less likely that your procedure will be canceled. You will need to purchase the following (no prescriptions are needed): 64 ounces Gatorade, Propel, Crystal Lite or other noncarbonated clear liquid sports drink (NOT red, orange, or purple). Diabetic patients buy sugar-free, e.g. Gatorade G2 4 Dulcolax laxative tablets containing 5mg bisacodyl each (do not buy the stool softener) 8.3 oz MiraLAX (238g) powder or generic polyethylene glycol 3350 (find in laxative aisle) The day before your colonoscopy mix 64 oz of the sports drink with 8.3 oz MiraLAX (238 g) in a pitcher. Stir or shake until MiraLAX completely dissolved. Chill if desired. On the evening before your colonoscopy: 5 PM take 4 Dulcolax laxative tablets with water by mouth. 6 PM drink the first half of the Gatorade/MiraLAX solution Drink one 8-ounce glass every 15 minutes. Six hours before your colonoscopy, drink the second half of the solution. Drink one 8-ounce glass every 15 minutes. You may continue a clear liquid diet until 3 hours before your colonoscopy. Bowel prep can work differently from person to person. Some people's bowels move slowly and they may need different instructions. Please see your doctor in office or virtually for personalized bowel prep instructions if you have: Medical condition that needs special accommodations Had a poor bowel prep results or failed bowel prep attempts in the past. Had difficulty with anesthesia during the procedure. FREQUENTLY ASKED QUESTIONS Q: What if I suffer from constipation? A: Recommend taking extra laxatives to resolve your constipation days prior to entering the bowel prep day. Q: What if have had prior poor preps results in past? A: Contact your physician as you will likely need additional bowel prep instructions. Q: What if I have motility issues like Parkinson's, MS (multiple sclerosis), wheelchair dependent, etc.? or on medications that slow colonic transit times (narcotics, gabapentin, anticholinergic medications etc.) A: Contact your physician as you will likely need extra time and additional laxatives to complete your bowel prep. Q: What if I cannot drink large volume of liquid? A: Start your prep 2-3 hours earlier to allow yourself more time to complete the entire prep. Q: What if I had bariatric surgery? Do I still have to complete the entire prep? A: Yes, gastric bypass surgery involves the stomach & small bowel. You may need to drink smaller amounts, slower (may need more time to complete your bowel prep). Gastric bypass does not alter the length of your colon so you will need to complete the entire bowel prep, it may just take longer time to complete it. Q: What if I am on dialysis? A: Please consult your market gardener prior to scheduling to get instructions pertinent to you. In general, dialysis patients take the Golytely bowel prep and have the procedure same day of their dialysis (colonoscopy in AM, dialysis in PM). Q: How do I know if something is considered as clear liquid diet? A: If you can pour it in a glass and you can see through it, it is considered clear liquid Q: Can I eat nuts, seeds, beans, popcorn, dried fruits, vegetables & fruits that have skin peel? A: No, you will need to not eat these items starting 3 days prior to procedure. Q: Can I take Uber/Lyft/taxi/bus home? A: An adult MUST be present with you at check-in for your colonoscopy and remain in the endoscopy area until you are discharged. You can take Uber home only if this adult escort is with you at check in, remain in the endoscopy area until you are discharged, and takes the Uber with you to home. Q: Can I sleep it off here and drive myself home? A: No, you must have an adult with you at time of procedure check in, remain in the endoscopy center during your procedure, and drive you home. You cannot drive a vehicle after your procedure the rest of the day. Q: What if I can't finish my bowel prep? A: If you cannot complete your entire bowel prep, there is high likelihood that your colonoscopy will need to be rescheduled due to inadequate prep quality. COLONOSCOPY BOWEL PREPARATION INSTRUCTIONS MiraLAX Your doctor has scheduled you for a colonoscopy. To have a successful colonoscopy, you must have a clean colon, that is empty. A clean colon allows your doctor to see the entire colon & diagnose issues like polyps or cancer. For doctors, a clean colon is like driving on a leta day; a dirty colon like driving in a storm. It is very important that you follow these instructions exactly, or your colonoscopy may not be as effective, could be canceled, and you may need to do the bowel prep and colonoscopy again. TRANSPORTATION REQUIREMENTS You are receiving IV sedation. For your safety, a responsible adult escort must accompany you to and from your procedure: Your adult escort MUST be present with you at check-in for your colonoscopy. Your adult escort MUST remain in the endoscopy area until you are discharged. Your adult escort MUST transport you home once you are discharged. You are NOT allowed to operate any form of transportation (i.e. drive a car, bicycle, etc) or leave the Endoscopy Center ALONE. It is not safe to do so. If you cannot meet these requirements, your procedure will be canceled. MEDICATION REQUIREMENTS For your safety, certain medications will need to be stopped or adjusted before you can have your procedure: BLOOD THINNERS: If you take blood thinners, such as Coumadin (warfarin), Plavix (clopidogrel), Ticlid (ticlopidine hydrochloride), Agrylin (anagrelide), Xarelto (Rivaroxaban), Pradaxa (Dabigatran), Eliquis (Apixaban), or Effient (Prasugrel), contact the physician who is prescribing these medications at least 2 weeks prior to your procedure to discuss any necessary adjustments. DIABETES: If you take medications for diabetes, your dosage may need to be adjusted. If you are being treated for diabetes with insulin, diabetic pills, or other injectable medications do not take your REGULAR dose after midnight on the day of your procedure. If you are taking any other types of insulin such as Lantus, Humalog, NPH (long-acting insulin), or 70/30 insulin, take half your normal dose the day before your procedure. DIABETES/WEIGHT MANAGEMENT: If you take medications for weight-loss, your dosage may need to be adjusted Contact the doctor who prescribes this medication for further instructions. If you take medications for weight-loss like semaglutide (Ozempic, Wegovy, Rybelsus), dulaglutide (Trulicity), liraglutide (Victoza, Saxenda), exenatide (Byetta, Bydureon), or lixisenatide (Adylyxin), stop your medication 1 week prior to your procedure. If you take medications like canagliflozin (Invokana), dapagliflozin (Farxiga, Forxiga), empagliflozin (Jardiance), stop your medication 3 days prior to your procedure. If you take ertugliflozin (Steglatro) stop your medication 4 days prior to your procedure. IRON: If you take iron pills, STOP them 1 week BEFORE your procedure, may resume after. OTHER MEDS: May take all other medications (including aspirin, antibiotics, water pills / diuretics like Lasix or Metolozone, blood pressure meds, etc.) at their usual scheduled time with water. DIET REQUIREMENTS The day before your colonoscopy, you may have a clear liquid diet (see below). The day of your colonoscopy, you may continue a clear liquid diet until 3 hours before your colonoscopy. Within 3 hours of your colonoscopy, take only any medications (as above) with a sip of water. Clear Liquid Diet Broth (chicken, beef or vegetable broth or bullion. Just the broth, no solids). Water Coffee or Tea (NO milk or creamer), but sugar and sugar substitutes are allowed. Clear liquids including clear, yellow, green, blue (NO red, NO orange, NO purple) Sodas / soft drinks; Gatorade or other sports drinks Fruit juice (strained; no-pulp); Kraig-Aid or flavored drinks Plain Jell-O or other gelatins Popsicles or hard candy Bowel prep can work differently from person to person. Some people's bowels move slowly and they may need different instructions. Please see your doctor in office or virtually for personalized bowel prep instructions if you have: BOWEL PREPARATION (MIRALAX/GATORADE) Split Dosing Bowel Prep: This means drinking your bowel prep in two doses. Split dosing helps clean your colon better and makes it less likely that your procedure will be canceled. You will need to purchase the following (no prescriptions are needed): 64 ounces Gatorade, Propel, Crystal Lite or other noncarbonated clear liquid sports drink (NOT red, orange, or purple). Diabetic patients buy sugar-free, e.g. Gatorade G2 4 Dulcolax laxative tablets containing 5mg bisacodyl each (do not buy the stool softener) 8.3 oz MiraLAX (238g) powder or generic polyethylene glycol 3350 (find in laxative aisle) The day before your colonoscopy mix 64 oz of the sports drink with 8.3 oz MiraLAX (238 g) in a pitcher. Stir or shake until MiraLAX completely dissolved. Chill if desired. On the evening before your colonoscopy: 5 PM take 4 Dulcolax laxative tablets with water by mouth. 6 PM drink the first half of the Gatorade/MiraLAX solution Drink one 8-ounce glass every 15 minutes. Six hours before your colonoscopy, drink the second half of the solution. Drink one 8-ounce glass every 15 minutes. You may continue a clear liquid diet until 3 hours before your colonoscopy. Bowel prep can work differently from person to person. Some people's bowels move slowly and they may need different instructions. Please see your doctor in office or virtually for personalized bowel prep instructions if you have: Medical condition that needs special accommodations Had a poor bowel prep results or failed bowel prep attempts in the past. Had difficulty with anesthesia during the procedure. FREQUENTLY ASKED QUESTIONS Q: What if I suffer from constipation? A: Recommend taking extra laxatives to resolve your constipation days prior to entering the bowel prep day. Q: What if have had prior poor preps results in past? A: Contact your physician as you will likely need additional bowel prep instructions. Q: What if I have motility issues like Parkinson's, MS (multiple sclerosis), wheelchair dependent, etc.? or on medications that slow colonic transit times (narcotics, gabapentin, anticholinergic medications etc.) A: Contact your physician as you will likely need extra time and additional laxatives to complete your bowel prep. Q: What if I cannot drink large volume of liquid? A: Start your prep 2-3 hours earlier to allow yourself more time to complete the entire prep. Q: What if I had bariatric surgery? Do I still have to complete the entire prep? A: Yes, gastric bypass surgery involves the stomach & small bowel. You may need to drink smaller amounts, slower (may need more time to complete your bowel prep). Gastric bypass does not alter the length of your colon so you will need to complete the entire bowel prep, it may just take longer time to complete it. Q: What if I am on dialysis? A: Please consult your market gardener prior to scheduling to get instructions pertinent to you. In general, dialysis patients take the eyesFinderytely bowel prep and have the procedure same day of their dialysis (colonoscopy in AM, dialysis in PM). Q: How do I know if something is considered as clear liquid diet? A: If you can pour it in a glass and you can see through it, it is considered clear liquid Q: Can I eat nuts, seeds, beans, popcorn, dried fruits, vegetables & fruits that have skin peel? A: No, you will need to not eat these items starting 3 days prior to procedure. Q: Can I take Uber/Lyft/taxi/bus home? A: An adult MUST be present with you at check-in for your colonoscopy and remain in the endoscopy area until you are discharged. You can take Uber home only if this adult escort is with you at check in, remain in the endoscopy area until you are discharged, and takes the Uber with you to home. Q: Can I sleep it off here and drive myself home? A: No, you must have an adult with you at time of procedure check in, remain in the endoscopy center during your procedure, and drive you home. You cannot drive a vehicle after your procedure the rest of the day. Q: What if I can't finish my bowel prep? A: If you cannot complete your entire bowel prep, there is high likelihood that your colonoscopy will need to be rescheduled due to inadequate prep quality. documented in this encounter [facility] 12-19-2024 Note Patient Outreach ( [facility]) JOLIE HEALY ([id number]) 1960 F Date Time Provider Department 12/19/24 [facility] During your visit today, we recorded the following information about you: Robina Matias RN 12/19/2024 1:46 PM Addendum COLONOSCOPY BOWEL PREPARATION INSTRUCTIONS MiraLAX? Your doctor has scheduled you for a colonoscopy. To have a successful colonoscopy, you must have a clean colon, that is empty. A clean colon allows your doctor to see the entire colon AND diagnose issues like polyps or cancer. For doctors, a clean colon is like driving on a leta day; a dirty colon like driving in a storm. It is very important that you follow these instructions exactly, or your colonoscopy may not be as effective, could be canceled, and you may need to do the bowel prep and colonoscopy again. TRANSPORTATION REQUIREMENTS You are receiving IV sedation. For your safety, a responsible adult escort must accompany you to and from your procedure: Your adult escort MUST be present with you at check-in for your colonoscopy. Your adult escort MUST remain in the endoscopy area until you are discharged. Your adult escort MUST transport you home once you are discharged. You are NOT allowed to operate any form of transportation (i.e. drive a car, bicycle, etc) or leave the Endoscopy Center ALONE. It is not safe to do so. If you cannot meet these requirements, your procedure will be canceled. MEDICATION REQUIREMENTS For your safety, certain medications will need to be stopped or adjusted before you can have your procedure: BLOOD THINNERS: If you take blood thinners, such as Coumadin (warfarin), Plavix (clopidogrel), Ticlid (ticlopidine hydrochloride), Agrylin (anagrelide), Xarelto (Rivaroxaban), Pradaxa (Dabigatran), Eliquis (Apixaban), or Effient (Prasugrel), contact the physician who is prescribing these medications at least 2 weeks prior to your procedure to discuss any necessary adjustments. DIABETES: If you take medications for diabetes, your dosage may need to be adjusted. If you are being treated for diabetes with insulin, diabetic pills, or other injectable medications do not take your REGULAR dose after midnight on the day of your procedure. If you are taking any other types of insulin such as Lantus, Humalog, NPH (long-acting insulin), or 70/30 insulin, take half your normal dose the day before your procedure. DIABETES/WEIGHT MANAGEMENT: If you take medications for weight-loss, your dosage may need to be adjusted Contact the doctor who prescribes this medication for further instructions. If you take medications for weight-loss like semaglutide (Ozempic, Wegovy, Rybelsus), dulaglutide (Trulicity), liraglutide (Victoza, Saxenda), exenatide (Byetta, Bydureon), or lixisenatide (Adylyxin), stop your medication 1 week prior to your procedure. If you take medications like canagliflozin (Invokana), dapagliflozin (Farxiga, Forxiga), empagliflozin (Jardiance), stop your medication 3 days prior to your procedure. If you take ertugliflozin (Steglatro) stop your medication 4 days prior to your procedure. IRON: If you take iron pills, STOP them 1 week BEFORE your procedure, may resume after. OTHER MEDS: May take all other medications (including aspirin, antibiotics, water pills / diuretics like Lasix or Metolozone, blood pressure meds, etc.) at their usual scheduled time with water. DIET REQUIREMENTS The day before your colonoscopy, you may have a clear liquid diet (see below). The day of your colonoscopy, you may continue a clear liquid diet until 3 hours before your colonoscopy. Within 3 hours of your colonoscopy, take only any medications (as above) with a sip of water. Clear Liquid Diet Broth (chicken, beef or vegetable broth or bullion. Just the broth, no solids). Water Coffee or Tea (NO milk or creamer), but sugar and sugar substitutes are allowed. Clear liquids including clear, yellow, green, blue (NO red, NO orange, NO purple) Sodas / soft drinks; Gatorade or other sports drinks Fruit juice (strained; no-pulp); Kraig-Aid or flavored drinks Plain Jell-O or other gelatins Popsicles or hard candy Bowel prep can work differently from person to person. ? Some people's bowels move slowly and they may need different instructions. Please see your doctor in office or virtually for personalized bowel prep instructions if you have: BOWEL PREPARATION (MIRALAX/GATORADE) Split Dosing Bowel Prep: This means drinking your bowel prep in two doses. Split dosing helps clean your colon better and makes it less likely that your procedure will be canceled. You will need to purchase the following (no prescriptions are needed): 64 ounces Gatorade, Propel, Crystal Lite or other noncarbonated clear liquid sports drink (NOT red, orange, or purple). Diabetic patients buy sugar-free, e. (more content not included)... [facility] 10-03-2024 Procedure note [facility] 10-03-2024 Procedure note [facility] 10-03-2024 Consult note [facility] 10-03-2024 Evaluation note Diagnosis Onset Date Resolution Encounter for screening for malignant neoplasm of colon acute October 03, 2024 5:20am [facility] Work Phone: [phone]) 847-852203-25-2025 History and physical note [facility] Medical Records Department [address] [place] [address] History & Physical Exam 10/03/24 0658 MR#: [id number] Acct: [id number] Name: JOLIE HEALY Jessica Rep #:[id number] : 1960 64 From: Vinnie Enrique DO PCP: Dr. Jolie Parsons MD Status:[facility] Location: [place] [address] HPI - General General Date of Admission: 10/03/24 Date of Service: 10/03/24 Chief Complaint: Screening colonoscopy HPI Narrative JOLIE HEALY, is a 64 F who presents today for screening colonoscopy. She has not had a colonoscopy inthe past. She has no medical history. She does not take any medicines on daily basis. [facility] Medical History Loss of hearing Post-menopausal Alcohol use Arthritis Back pain Non-smoker Vitamin D deficiency Osteopenia Low calcium levels nodules on thyroid Home Medications ?Medication ?Instructions ?Recorded ?Last Taken ?Type ergocalciferol (vitamin D2) 1,250 1,250 mcg PO QMONTH 08/19/20 09/09/24 History mcg (50,000 unit) capsule (Vitamin D2) B-complex with vitamin C 1 tab PO QDAY 06/27/2409/30 History calcium 333 mg 1 tab PO QDAY 06/27/2409/30 History (carbonate)-magnesium 133 mg (oxide)-zinc 5 mg tablet meloxicam 7.5 mg tablet 7.5 mg PO QDAY PRN pain 06/11 02/01 Unknown History multivitamin 1 tab PO QDAY 06/27/24 Unkno wn History naproxen 500 mg tablet 500 mg PO BID 09/29/2410/01 History cetirizine 10 mg tablet (24Hour 10 mg PO DAILY 5 10/02/24 History Allergy) Allergy/AdvReac Type Severity Reaction Status Date / Time amoxicillin Allergy Mild Hives Verified 10/03/24 05:41 Family History Other Anxiety Arthritis Asthma Depression Osteoporosis Skin cancer Thyroid disorder Surgical History Hx of colonoscopy H/O breast augmentation Social History household members: spouse current occupational status: retired Smoking Status: Never smoker alcohol intake: current alcohol intake frequency: holidays/special occasions only substance use type: does not use seatbelt use: always do you feel safe at home: Yes additional social history: - 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 [employer] Constitutional Constitutional: Denies fatigue, fever(s), poor appetite, weight gain or weight loss Gastrointestinal Gastrointestinal: Denies belching, bloating, change in bowel habits, change in stool character, chewing difficulty, coffee ground emesis, constipation, cramping, diarrhea, dyspepsia, dysphagia, earlysatiety, excessive flatus, fecalincontinence, heartburn, hematemesis, hematochezia, hemorrhoids, loose stools, melena, nausea, odynophagia, rectal bleeding, tenesmus, vomiting or weight changes Vital Signs Vital Signs Vital Signs: 10/03/24 05:43 10/03/24 05:45 10/03/24 06:33 Temperature 97.1 F L 97.1 F L Temperature Source Temporal Pulse Rate 74 74 Respiratory Rate 16 16 Respiratory Pattern Normal Blood Pressure 120/73 120/73 Blood Pressure Mean 88 Blood Pressure Source Monitor Blood Pressure Position Semi-Fowlers Blood Pressure Location Left Arm Pulse Ox 100 100 Oxygen Delivery Method Room Air Room Air Weight Weight: 124 lb Body Mass Index (BMI) 21.9 Physical Exam Const alert, oriented x3, no apparent distress and healthy appearing General Appearance: cooperative GI normal to inspection, nondistended, normoactive bowel sounds, soft to palpation,non-tender and non-distended Percussion: normal to percussion Rectal Exam: deferred Assessment & Plan Assessment/Plan (1) Encounter for screening for malignant neoplasm of colon: PLAN: She was explained alternatives, risk and benefits include understanding bleeding, infection, sepsis, perforation, need for surgery . She will havean ASA of 3. 10/03/24 0700 Cosigner Signature (if applicable): CC: Dr. Jolie Parsons MD; Vinnie Friend, DO~ Signed [facility]03-25-2025 [facility] Medical Records Department [address] [place] [address] History Physical Exam 10/03/24 0658 MR#: [id number] Acct: [id number] Name: JOLIE HEALY Rep #: [id number] : 1960 64 From: Vinnie Enrique DO PCP: Dr. Jolie Parsons MD Status:[facility] Location: [place] [address] HPI - General General Date of Admission: 10/03/24 Date of Service: 10/03/24 Chief Complaint: Screening colonoscopy HPI Narrative JOLIE HEALY, is a 64 F who presents today for screening colonoscopy. She has not had a colonoscopy in the past. She has no medical history. She does not take any medicines on daily basis. [facility] Medical History Loss of hearing Post-menopausal Alcohol use Arthritis Back pain Non-smoker Vitamin D deficiency Osteopenia Low calcium levels nodules on thyroid Home Medications ???Medication ???Instructions ???Recorded ???Last Taken ???Type ergocalciferol (vitamin D2) 1,250 1,250 mcg PO QMONTH 08/19/2008/05 History mcg (50,000 unit) capsule (Vitamin D2) B-complex with vitamin C 1 tab PO QDAY 06/27/24 09/30/24 Hi story calcium 333 mg 1 tab PO QDAY 06/27/24 09/30/24 Hi story (carbonate)-magnesium 133 mg (oxide)-zinc 5 mg tablet meloxicam 7.5 mg tablet 7.5 mg PO QDAY PRN pain 06/27/24 U nknown History multivitamin 1 tab PO QDAY 06/27/24 Unknown His tory naproxen 500 mg tablet 500 mg PO BID 09/29/24 10/01/24 Hi story cetirizine 10 mg tablet (24Hour 10 mg PO DAILY 10/03/24 10/02/24 H istory Allergy) Allergy/AdvReac Type Severity Reaction Status Date / Time amoxicillin Allergy Mild Hives Verified 10/03/24 05:41 Family History Other Anxiety Arthritis Asthma Depression Osteoporosis Skin cancer Thyroid disorder Surgical History Hx of colonoscopy H/O breast augmentation Social History household members: spouse current occupational status: retired Smoking Status: Never smoker alcohol intake: current alcohol intake frequency: holidays/special occasions only substance use type: does not use seatbelt use: always do you feel safe at home: Yes additional social history: - 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 [employer] Constitutional Constitutional: Denies fatigue, fever(s), poor appetite, weight gain or weight loss Gastrointestinal Gastrointestinal: Denies belching, bloating, change in bowel habits, change in stool character, chewing difficulty, coffee ground emesis, constipation, cramping, diarrhea, dyspepsia, dysphagia, early satiety, excessive flatus, fecal incontinence, heartburn, hematemesis, hematochezia, hemorrhoids, loose stools, melena, nausea, odynophagia, rectal bleeding, tenesmus, vomiting or weight changes Vital Signs Vital Signs Vital Signs: 10/03/24 05:43 10/03/24 05:45 10/03/24 06:33 Temperature 97.1 F L 97.1 F L Temperature Source Temporal Pulse Rate 74 74 Respiratory Rate 16 16 Respiratory Pattern Normal Blood Pressure 120/73 120/73 Blood Pressure Mean 88 Blood Pressure Source Monitor Blood Pressure Position Semi-Fowlers Blood Pressure Location Left Arm Pulse Ox 100 100 Oxygen Delivery Method Room Air Room Air Weight Weight: 124 lb Body Mass Index (BMI) 21.9 Physical Exam Const alert, oriented x3, no apparent distress and healthy appearing General Appearance: cooperative GI normal to inspection, nondistended, normoactive bowel sounds, soft to palpation, non-tender and non- distended Percussion: normal to percussion Rectal Exam: deferred Assessment Plan Assessment/Plan (1) Encounter for screening for malignant neoplasm of colon: PLAN: She was explained alternatives, risk and benefits include understanding bleeding, infection, sepsis, perforation, need for surgery . She will have an ASA of 3. 10/03/24 0700 Cosigner Signature (if applicable): CC: Dr. Jolie Parsons MD; Vinnie Friend, DO [facility] Consult [facility] Medical Records Department [address] [place] [address] Pre-Anesthesia Evaluation 10/03/24627 MR#: [id number] Acct: [id number] Name: JOLIE HEALY Rep #:[id number] : 1960 64 From: Franco Jarrett MD PCP: Dr. Jolie Parsons MD Status:REG SDC Y Race: C Location: [facility]10-1 ASA Classification* ASA Classification ASA Classification: 2 Assessment & Plan Anesthesia* Anesthesia Assessment Anesthesia Assessment: Discussed sedation and/or anesthesia options, risks, benefits, and alternatives with patient/parents/legal guardian/POA. Questions invited. The patient/parents/legal guardian/POA seems to understand and agrees to proceedwith anesthesia plan. Reviewed the physical assessment, medical history, allergy history and patient home medications list prior to surgery/procedure/anesthetic and documented any changes. Performed airway and anesthesia risk assessments. Anesthesia Type Anesthesia Type: MAC History Source History Obtained from:: Patient and Chart Anesthesia Focused Assessment* Temperature: 97.1 F Pulse Rate: 74 Blood Pressure: 120/73 Respiratory Rate: 16 Pulse Ox: 100 Oxygen Delivery Method: Room Air Airway Assessment Mouth opens: >3 cm Mallampati Score: I Teeth Condition: Caps/Crowns ([place] on left lower molar. It is tight.) Neck Range of motion (ROM): Full ROM Focused Labs Anesthesia Preop lab: CBC CHEMISTRY Potassium 3.9 mmol/L (3.5-5.1) 08/19/20 10:18 08/19/20 Sodium 140 mmol/L (136-145) 08/19/20 10:18 08/19/20 BUN 14 mg/dL (7-18) 08/19/20 10:18 08/19/20 Creatinine 0.98 mg/dL (0.55-1.02) 08/19/20 10:18 08/19/20 Glucose 87 mg/dL (74-106) 08/19/20 10:18 08/19/20 TSH 0.77 uIU/mL (0.358-3.74) 08/19/20 10:18 COAG Pre-Assessment Diagnosis/Proposed Procedure Planned Operative Procedure(s): cscope oa Anesthesia History Anesthesia History - smooth stucco resurfacer: Anesthesia History - smooth stucco resurfacer Hx Hospitalization No 09/29/24 08:28 Any Problems With Anesthesia No 09/29/24 08:28 Cholinesterase deficiency No 09/29/24 08:28 You/Your Family Experience No 09/29/24 08:28 fever (hyperthermia) with Relationship Recent Exposure to Contagious No 10/03/24 05:43 Disease Does patient have nerve No 09/29/24 08:28 stimulator Patient instructed to have device shut off --Does patient have Pacemaker No 10/03/24 05:45 or ICD? When Was Last Pacemaker Check QUESTION #4 FULL TEXT: You/Your Family Experience fever (hyperthermia) with Anesthesia Last Oral Intake Last Oral intake: Last Oral Intake NPO since 01:00 10/03/24 05:45 Meds taken in AM with sips of No 10/03/24 05:45 water? Meds patient instructed to take am of surgery Any additional information?: Yes NPO since: 01:00 (Patient finished prep at 1 AM.) PONV PONV - smooth stucco resurfacer: PONV - smooth stucco resurfacer Female Yes 09/29/24 08:28 HX of Motion Sickness Yes 09/29/24 08:28 HX of N/V After Surgery No 09/29/24 08:28 Non-Smoker Yes 09/29/24 08:28 Duration of Surgery greater No 09/29/24 08:28 than 60 minutes Number of Risk Factors 3 09/29/24 08:28 PONV Score Moderate Risk 09/29/24 08:28 Height & Weight Height & Weight: Anesthesia: Height & Weight Height 5 ft 3 in 10/03/24 05:45 Weight: 56.245 kg 10/03/24 05:45 Body Mass Index (BMI) 21.9 10/03/24 05:45 Respiratory Assessment Respiratory Assessment - smooth stucco resurfacer: Respiratory Tract Infection Hx - smooth stucco resurfacer Hx Respiratory Tract Infection No 09/29/24 08:28 STOP Sleep Apnea STOP Sleep Apnea - smooth stucco resurfacer: STOP Sleep Apnea - smooth stucco resurfacer Hx Hypertension No 09/29/24 08:28 Hx Sleep Apnea No 09/29/24 08:28 CPAP BIPAP Do you snore loudly (louder No 09/29/24 08:28 than talking or can be heard Do you often feel tired/ No 09/29/24 08:28 fatigued/ sleepy during daytime? Has anyone observed you stop No 09/29/24 08:28 breathing during sleep? STOP Results Negative 09/29/24 08:28 QUESTION #5 FULL TEXT : Do you snore loudly (louder than talking or can be heard through closeddoors)? 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 Specify any problems Hx of Preganancy in last 3 No 09/29/24 08:28 Months Nurse Filling Out Transfusion DSCHRIBER 09/29/24 08:28 & Questions: Date: 09/29/24 09/29/24 08:28 Time: 08:30 09/29/24 08:28 Patient unable to answer at this time (ie. confused, unrespo /Reproduction History /Reproductive History - smooth stucco resurfacer: /Reproductive Hx- smooth stucco resurfacer Hx Now No 09/29/24 08:28 Gestational Age (in weeks): EDC: Hx Hx Para Hx Section SAB No 09/29/24 08:28 PFSH Medical History Loss of hearing Post-menopausal Alcohol use Arthritis Back pain Non-smoker Vitamin D deficiency Osteopenia Low calcium levels nodules on thyroid Home Medications ?Medication ?Instructions ?Recorded ?Last Taken ?Type ergocalciferol (vitamin D2) 1,250 1,250 mcg PO QMONTH 08/19/20 09/09/24 History mcg (50,000 unit) capsule (Vitamin D2) B-complex with vitamin C 1 tab PO QDAY 06/27/2409/30 History calcium 333 mg 1 tab PO QDAY 06/27/2409/30 History (carbonate)-magnesium 133 mg (oxide)-zinc 5 mg tablet meloxicam 7.5 mg tablet 7.5 mg PO QDAY PRN pain 06/11 02/01 Unknown History multivitamin 1 tab PO QDAY 06/27/24 Unkno wn History naproxen 500 mg tablet 500 mg PO BID 09/29/2410/01 History cetirizine 10 mg tablet (24Hour 10 mg PO DAILY 5 10/02/24 History Allergy) Allergy/AdvReac Type Severity Reaction Status Date / Time amoxicillin Allergy Mild Hives Verified 10/03/24 05:41 Family History Other Anxiety Arthritis Asthma Depression Osteoporosis Skin cancer Thyroid disorder Surgical History Hx of colonoscopy H/O breast augmentation Social History household members: spouse current occupational status: retired Smoking Status: Never smoker alcohol intake: current alcohol intake frequency: holidays/special occasions only substance use type: does not use seatbelt use: always do you feel safe at home: Yes additional social history: - 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 Review of Systems (Anesthesia) ROS Narrative System reviewed and no additional complaints, except as documented. 10/03/24 0633 manuel CAUSEY> Date _ Franco Jarrett MD Cosigner Signature: Date CC: ~ Signed [facility]03-07-2025 Radiology Diagnostic study note [facility] Imaging Services [address] [place] [address] Hips B/L min 2 views w/ Pelvis MR#: [id number] Acct: [id number] Name: JOLIE HEALY Jessica Rep #: [id number] : 1960 F 64 From: Tony Thomas MD PCP: Dr. Jolie Parsons MD Status: REG CLI Study:Hips B/L min 2 views w/ Pelvis Date of Exam: 09/15/24 Exam# [id number] Ordering Dr: Julius Monsalve MD PROCEDURE: Bilateral hip pain. TECHNIQUE: Five views of the hip and pelvis were obtained. COMPARISON: None. FINDINGS: No fracture. No suspicious bone lesion. Normal alignment. Calcified pelvic phleboliths. There is evidence of prior bilateral tubal ligation clips. Degenerative changes of the lower lumbar spine. RAD/Hips B/L min 2 views w/ Pelvis IMPRESSION: No acute abnormality is seen. Reading Location: [id number] CC: Dr. Jolie Parsons MD; Dr. Julius Monsalve MD ~ Furnace Installer: Signed [facility]01-28-2025 NotePatient Outreach (INTMWS) JOLIE HEALY ([id number]) 1960 F Date Time Provider Department 08/08/24 [facility] INTMWS During your visit today, we recorded the following information about you: Allergies As of Date: 08/08/2024 Noted Allergy Reaction AMOXICILLIN 08/05/2022 2 - Rash AZITHROMYCIN 09/17/2016 4 - Hives FOSAMAX (ALENDRONATE) 09/10/2020 7 - Swelling 8 - GI Upset Comments: throat selling SEASONAL ALLERGIES 08/05/2022 3 - Cough Date Reviewed: 06/25/2023 Reviewed by: Joya Onofre, JOHNNY - Fully Assessed Visit Diagnosis:Encounter for screening mammogram for breast cancer [Z12.31] Order(s):ROSCOE SCREENING W GARCIA [[id number]] Order #: [id number] FUTURE Prescriptions as of 09/08/2024 - meloxicam (MOBIC) 15 mg tablet Take 1 tablet by mouth once daily. With food. - cetirizine HCl (ZYRTEC ORAL) Take by mouth as needed. For allergies - multivitamin tablet Take 1 tablet by mouth once daily. - ergocalciferol 50,000 unit capsule (VITAMIN D2, DRISDOL) 1 capsule once every month. - calcium carbonate/vitamin d3(CALCIUM 600 + D 600 MG-125 UNIT TAB) one tablet every other day Problem List As Of Date 08/08/2024 Noted Resolved Plastic surgery for unacceptable cosmetic appea*11/23/2011 Status post cosmetic plastic surgery [Z98.890] 03/30/2012 Status post breast augmentation [Z98.82] 03/30/2012 S/P tubal ligation [Z98.51] 01/27/2013 Age-related osteoporosis without current pathol*03/09/2021 Lumbar disc herniation with radiculopathy [M51.*11/17/2021 Encounter Status:Closed by EPIC, PRODUSER on 09/08/24[facility] 05-18-2023 History of Present illness Narrative* Justin Jones RT(R) - 05/18/2023 3:30 PM EST Radiology Service Progress Note PATIENT NAME: Jolie Healy DATE OF SERVICE: May 18, 2023 TIME: 3:23 PM PATIENT IDENTITY VERIFICATION COMPLETED USING TWO (2) IDENTIFIERS: Name and Date of confirmedby patient verbally. FALL SCREENING: Has the patient had 2 falls in the last year or 1 fall with injury or currently using an Ambulatory Assistive Device (Walker, Cane, Wheelchair, Crutches, etc.)? No PATIENT GENDER DATA: Female. status: : No status: NO. PATIENT RELEVANT IMPLANT DATA REVIEWED: Not Applicable RADIOLOGY DEPARTMENT: Bone Density PERIPHERAL IV DATA: Not applicable SIGNED BY: RT Lorena(R) May 18, 2023 3:23 PM documented in this [facility]Louis [facility] Miscellaneous Notes* Result Encounter Note - Nancy Harris APRN.CNP - 05/18/2023 3:30 PM EST Bone density shows osteopenia but overall stable. documented in this encounterLouis [facility]10-25-2023 Miscellaneous Notes* Telephone Encounter - Gale Lopez - 05/05/2023 9:45 AM EDT Spoke with pt and scheduled for 07/[address] CMP for treatment * Telephone Encounter - Asha Mandel - 05/04/2023 3:48 PM EDT Patient called to schedule Reclast - ordering prov PCP. Please review and advise. documented in this encounterLouis [facility]09-18-2023 History of Present illness Narrative* Nancy Harris APRN.CNP - 03/29/2023 3:33 PM EDT CHIEF COMPLAINT: Patient presents with: Physical HISTORY: Jolie Healy is a 62 year old female who presents 03/29/2023 for her Yearly Physical Exam. They are here today for a wellness exam. Generally feels well and does not have complaints. Does wear a seatbelt when riding in a car. Does have smoke detectors and a carbon monoxide detector in the home. Is able to complete ADL's with independence. A few things: Needs her 3rd Reclast infusion. Prior DEXA showed osteopenia with high fracture risk, has diagnosisof osteoporosis on problem list. Gets funks at times. Gets agitated, irritable, not sure if anxious or depressed or what. Lasts longer than a typical mood swing. Feels she does not have a lot of stress. Hard time sleeping, falls asleep okay but might wake up and has trouble falling back asleep. Has thyroid nodules. Other Providers: WARD CLERK Depression Screen Q1: Over the past two weeks, have you felt down, depressed or hopeless? No Q2: Over the past two weeks, have you felt little interest or pleasure in doing things? No Current exercise habits: Tries to be active but no regular activity/exercise Dietary habits: Tries to eat healthy Hearing difficulties: no Safe in current home environment: Yes Tobacco: no ETOH: occasional WARD CLERK History: LMP: Patient's last menstrual period was 12/22/2012. Family Hx Breast CA: no Family Hx Colon CA: no Past Medical History: PAST MEDICAL HISTORY Diagnosis Date Former smoker quit 1979 1 ppd x 8 yrs Generalized anxiety disorder Hypoglycemia, unspecified Hypoglycemia LOW BLOOD SUGAR Multiple thyroid nodules Osteopenia PMH - PAST MEDICAL HISTORY OF THYROID NODULES Family Medical History: FAMILY HISTORY Problem Relation Age of Onset Osteoporosis Mother other (MASTECTOMY) Father FOR BENIGN LESION other (osteopenia) Sister Cancer Maternal Grandmother BACK CANCER Social History: Social History Tobacco Use Smoking status: Former Packs/day: 1.00 Years: 8.00 Additional pack years: 0.00 Total pack years: 8.00 Types: Cigarettes Quit date: 07/12/1979 Years since quittin.7 Smokeless tobacco: Never Vaping Use Vaping Use: Never used Substance Use Topics Alcohol use: Yes Alcohol/week: 2.0 - 3.0 standard drinks of alcohol Types: 2 - 3 Cans of Beer (12oz) per week Comment: OCCASIONALLY Drug use: No Allergies: ALLERGIES Allergen Reactions Amoxicillin Rash Azithromycin Hives Fosamax [Alendronat* Swelling, GI Upset throat selling Seasonal Allergies Cough Medications: Current Outpatient Medications Medication Sig meloxicam (MOBIC) 15 mg tablet Take 1 tablet by mouth once daily. With food. cetirizine HCl (ZYRTEC ORAL) Take by mouth as needed. For allergies multivitamin tablet Take 1 tablet by mouth once daily. ergocalciferol 50,000 unit capsule (VITAMIN D2, DRISDOL) 1 capsule once every month. calcium carbonate/vitamin d3(CALCIUM 600 + D 600 MG-125 UNIT TAB) one tablet every other day Current Facility-Administered Medications Medication Dose Route Frequency zoledronic acid 5 mg PREMIX piggyback (RECLAST) 5 mg INTRAVENOUS ONCE (AMB - Up to 30 Days) Chronic Problem List: ACTIVE PROBLEM LIST Lumbar Disc Herniation With Radiculopathy - 11/17/2021 Age-Related Osteoporosis Without Current Pathological Fracture - 03/09/2021 S/P Tubal Ligation - 01/27/2013 Status Post Cosmetic Plastic Surgery - 03/30/2012 Status Post Breast Augmentation - 03/30/2012 Plastic Surgery for Unacceptable Cosmetic Appearance - 11/23/2011 Review of Systems Review of Systems Constitutional: Negative. Respiratory: Negative. Cardiovascular: Negative. OBJECTIVE BP 104/70 Pulse 63 Ht 5' 2 (1.58m) Wt 126 lb (57.2kg) SpO2 98% LMP 12/22/2012 BMI 23.04 kg/(m^2). Physical Exam Vitals and nursing note reviewed. Constitutional: General: She is awake. She is not in acute distress. Appearance: Normal appearance. She is well-developed and well-groomed. She is not ill-appearing, toxic-appearing or diaphoretic. HENT: Head: Normocephalic. Right Ear: External ear normal. Left Ear: External ear normal. Nose: Nose normal. Eyes: General: Vision grossly intact. Conjunctiva/sclera: Conjunctivae normal. Pupils: Pupils are equal, round, and reactive to light. Neck: Vascular: No JVD. Trachea: Trachea normal. Cardiovascular: Rate and Rhythm: Normal rate and regular rhythm. Pulses: Normal pulses. Heart sounds: Normal heart sounds. No murmur heard. Pulmonary: Effort: Pulmonary effort is normal. No accessory muscle usage, prolonged expiration or respiratory distress. Breath sounds: Normal breath sounds. Musculoskeletal: Cervical back: Neck supple. Skin: General: Skin is warm and dry. Capillary Refill: Capillary refill takes less than 2 seconds. Neurological: General: No focal deficit present. Mental Status: She is alert and oriented to person, place, and time. Mental status is at baseline. Psychiatric: Attention and Perception: Attention and perception normal. Mood and Affect: Mood and affect normal. Speech: Speech normal. Behavior: Behavior normal. Behavior is cooperative. Thought Content: Thought content normal. Cognition and Memory: Cognition and memory normal. Judgment: Judgment normal. ASSESSMENT/PLAN: 1. Wellness examination - ICD9: V70.0, ICD10: Z00.00 (primary diagnosis) - Counseled on healthy diet and regular exercise - Calcium intake with supplements or by diet of 1000 mg/day for under 50, 1200- 1500 mg/day for 50+ - Depression screening tool completed and reviewed with patient. Based on score and interview, patient is not at risk for depression and recommended no further intervention at this time. 2. Age-related osteoporosis without current pathological fracture - ICD9: 733.01, ICD10: M81.0 - Reviewed the need for Calcium and Vitamin D supplements and weight bearing exercise as tolerated - ZOLEDRONIC ACID 5 MG/100 ML IN MANNITOL 5 %-WATER INTRAVENOUS PIGGYBCK - TSH BLD - VITAMIN D 25 HYDROXY 3. Multiple thyroid nodules - ICD9: 241.1, ICD10: E04.2 - TSH BLD 4. Sleep disorder - ICD9: 780.50, ICD10: G47.9 Discussed ways to improve sleep hygiene, given helpful hints for sleep handout - TSH BLD 5. Mood changes - ICD9: 296.90, ICD10: R45.86 - TSH BLD 6. Vitamin D deficiency - ICD9: 268.9, ICD10: E55.9 - VITAMIN D 25 HYDROXY 7. Encounter for immunization - ICD9: V03.89, ICD10: Z23 - INFLUENZA VACCINE, AGE 6 MO - 64 YR, QUADRIVALENT (AFLURIA, FLULAVAL, FLUZONE) 8. Encounter for therapeutic drug monitoring - ICD9: V58.83, ICD10: Z51.81 - CBC + DIFF - COMP METABOLIC PANEL Wellness exam completed. Health maintenance reviewed and updated. Chronic conditions and medications reviewed and updated as needed. Encouraged regular physical activity as tolerated, Healthy diet, and health promoting lifestyle. Encouraged regular eye doctor and dental visits. Portions of this note have been entered by ancillary staff. I have reviewed and when necessary edited, so that they are an adequate record of my encounter with this patient Please note that parts of this document were created using voice recognition software and therefore may contain grammatical errors. Patient verbalizes understanding of instructions from today's visit and in agreement with treatmentplan. Questions answered. Agrees to call the office if questions, concerns or issues with acute symptoms not improving or if they worsen. See diagnoses and orders for additional plan(s). Allergies and medications were reviewed, list was updated, and refills given if needed. Past medical, surgical, social, and family history reviewed and updated as appropriate. Encouraged proper diet & exercise as well as compliance with taking medications. Age- appropriate health preventative measures were discussed. Return in about 1 year (around 03/29/2024) for Wellness physical.. Nancy Harris APRN-CHRISTIANO documented in this encounterLouis Stokes [facility]01-26-2023 Miscellaneous Notes* Letter - Mammography Coordinator - 08/06/2022 3:57 PM EST August 07, 2022 PID: [id number] Jolie Healy [id number] [place] [address] Dear Ms. Healy, We are pleased to inform you that the results of your recent breast imaging exam on 08/05/2022 are normal. Your mammogram demonstrates that you have dense breast tissue, which could hide abnormalities. Dense breast tissue, in and of itself, is a relatively common condition. Therefore, this information is not provided to cause undue concern; rather, it is to raise your awareness and promote discussion with your health care provider regarding the presence of dense breast tissue in addition to other riskfactors. Early detection of cancer is very important. We also understand recommendations regarding breast cancer screening are controversial. Please discuss with your primary care provider which strategy is best for you and whether a mammogram is right for you. Your imaging studies and report will be kept on file at [facility] as part of your permanent medical record and are available for your continuing care. Thank you for allowing us to help in meeting your health care needs. Sincerely, Dr. Iglesias Interpreting Radiologist [facility] (Normal over 40) documented in this encounterLouis Stokes Cleveland Va Medical Center01-25-2023 History of Present illness Narrative* Jolie Hughes APRN.CNP - 08/05/2022 8:36 AM EST Directory Compiler offered: Patient declines. Jolie is a 62 year old who presents for an annual gynecologic exam without complaints. Postmenopausal: Yes since age 51 HRT use: No. Last Pap: 03/04/2021 normal HPV: 03/03/2021 negative History of abnormal pap: No Last mammogram: today, pending History of abnormal mammogram: No Sexually active: Yes History of STDS: None Patient concerns for STD exposure: No. Time with current partner: 12 years Pain with intercourse: No Postcoital bleeding: No Hot flashes: No Night sweats: Yes, occasional Vaginal dryness: No OB History T2 L2 SAB0 IAB0 Ectopic0 Multiple0 Live Births0 Manager Rn Case History LMP: 12/22/2012, Postmenopausal Age at Menarche: Age at First : Age at Menopause: Manager Rn Case History Comments: Sexual Activity: Yes; Male; BTL Contraception: Surgical PAST MEDICAL HISTORY Diagnosis Date Former smoker quit 1979 1 ppd x 8 yrs Generalized anxiety disorder Hypoglycemia, unspecified Hypoglycemia LOW BLOOD SUGAR Multiple thyroid nodules Osteopenia PMH - PAST MEDICAL HISTORY OF THYROID NODULES PAST SURGICAL HISTORY Procedure Laterality Date BREAST AUGMENTATION WITH IMPLANT 03/12/2012 Breast augmentation COLONOSCOPY GEN ANES 2016 LIG/TRNSXJ FLP TUBE ABDL/VAG APPR UNI/BI 07/12/1989 THYROID FINE NEEDLE ASPIRATION 07/12/2005 FAMILY HISTORY Problem Relation Age of Onset other (MASTECTOMY) Father FOR BENIGN LESION Cancer Maternal Grandmother BACK CANCER SOCIAL HISTORY Social History Tobacco Use Smoking status: Former Packs/day: 1.00 Years: 8.00 Pack years: 8.00 Types: Cigarettes Quit date: 07/12/1979 Years since quittin.0 Smokeless tobacco: Never Vaping Use Vaping Use: Never used Substance Use Topics Alcohol use: Yes Alcohol/week: 2.0 - 3.0 standard drinks Types: 2 - 3 Cans of Beer (12oz) per week Comment: OCCASIONALLY Drug use: No REVIEW OF SYSTEMS Abdomen: No abdominal pain, nausea, vomiting, diarrhea, or constipation. No bloating, early satiety, indigestion, or increased flatulence. Bladder: No dysuria, gross hematuria, urinary frequency, urinary urgency, or incontinence Breast: No breast lumps, nipple d/c, overlying skin changes, redness or skin retraction Allergies and current medication updated:Yes EXAM: BP 100/60 Ht 5' 3 (1.60m) Wt 128 lb (58.1kg) LMP 12/22/2012 BMI 22.68 kg/(m^2). GENERAL: pleasant, female in no apparent distress HEENT: Normocephalic, atraumatic, mucus membranes moist, and no lesions NECK: Supple, full range of motion, no adenopathy, and thyroid nodules - bx negative DERMATOLOGY: Normal, without lesions, non-icteric, and non-hirsute BREAST: soft, non-tender, symmetric, no dominant mass, normal nipple-areolar complex, no lymphadenopathy, no nipple discharge, and bilateral breast implants CHEST: Normal inspiratory effort ABDOMEN: soft, non-tender, and no masses PELVIC: external genitalia normal, normal Bartholin's glands, urethra, [place]'s glands, no vulvar lesions, no cervical lesions, physiologic discharge present, normal appearing perineal body and perianal region BIMANUAL: uterus normal size, shape and consistency, no adnexal masses, and non-tender RECTOVAGINAL: deferred. NEURO: alert and oriented x3,exam grossly non-focal EXTREMITIES: normal ASSESSMENT/PLAN: 1) Health maintenance: Pap/HPV up to date. Mammogram ordered Mammogram up to date Nutrition, exercise and routine health maintenance exams reviewed. Calcium/Vitamin D supplementation information provided. Colon cancer screening: up to date with screening BMD: up to date. On Reclast 2) Follow up one year or sooner as needed Jolie Hughes APRN.CHRISTIANO documented in this encounterLouis Stokes [facility] Center01-25-2023 History of Present illness Narrative* Deborah Roman RT(R) - 08/05/2022 8:30 AM EST Radiology Service Progress Note PATIENT NAME: Jolie Healy DATE OF SERVICE: August 05, 2022 TIME: 8:27 AM PATIENT IDENTITY VERIFICATION COMPLETED USING TWO (2) IDENTIFIERS: Name and Date of confirmedby patient verbally. FALL SCREENING: Has the patient had 2 falls in the last year or 1 fall with injury or currently using an Ambulatory Assistive Device (Walker, Cane, Wheelchair, Crutches, etc.)? No PATIENT GENDER DATA: Female. status: : No status: NO. PATIENT RELEVANT IMPLANT DATA REVIEWED: Not Applicable RADIOLOGY DEPARTMENT: Mammography PERIPHERAL IV DATA: Not applicable SIGNED BY: RT Britt(R) August 05, 2022 8:27 AM documented in this encounterLouis Stokes [facility] Center01-12-2023 Miscellaneous Notes* Telephone Encounter - Nikkie Montero LPN - 07/23/2022 1:40 PM EST Spoke with pt and appt rescheduled. Nikkie Montero LPN * Telephone Encounter - Nikkie Montero LPN - 07/23/2022 6:46 AM EST mNectart message left for pt to reschedule since provider is absence. Nikkie Montero LPN documented in this encounterLouis Stokes Cleveland [facility] Center12-27-2022 History of Present illness Narrative* Joana Iqbal APRN.CHRISTIANO - 07/07/2022 6:50 PM EST Subjective Cough Associated symptoms include chills, headaches and sore throat. Pertinent negatives include no myalgias. Jolie Healy is a 62 year old female who presents with sore throat, cough, headache, chills. Shehas had exposure to strep. She saw teleRedBeec online and was prescribed steroids. Her is currently ill with similar symptoms. Review of Systems Constitutional: Positive for chills and malaise/fatigue. Negative for fever. HENT: Positive for sore throat. Respiratory: Positive for cough. Cardiovascular: Negative. Gastrointestinal: Negative for abdominal pain, diarrhea, nausea and vomiting. Musculoskeletal: Negative for myalgias. Skin: Negative. Neurological: Positive for headaches. BP 122/68 Pulse 80 Temp 36.8 C (98.2 F) Resp 16 Wt 59 kg (130 lb) LMP 12/22/2012 SpO2 96% BMI 22.44 kg/m PAST MEDICAL HISTORY Diagnosis Date Former smoker quit 1979 1 ppd x 8 yrs Generalized anxiety disorder Hypoglycemia, unspecified Hypoglycemia LOW BLOOD SUGAR Multiple thyroid nodules Osteopenia PMH - PAST MEDICAL HISTORY OF THYROID NODULES PAST SURGICAL HISTORY Procedure Laterality Date BREAST AUGMENTATION WITH IMPLANT 03/12/2012 Breast augmentation COLONOSCOPY GEN ANES 2016 LIG/TRNSXJ FLP TUBE ABDL/VAG APPR UNI/BI 07/12/1989 THYROID FINE NEEDLE ASPIRATION 07/12/2005 ALLERGIES Fosamax [Alendronate] MEDICATIONS meloxicam (MOBIC) 15 mg tablet Take 1 tablet by mouth once daily. With food. cetirizine HCl (ZYRTEC ORAL) Take by mouth as needed. For allergies multivitamin tablet Take 1 tablet by mouth once daily. ergocalciferol 50,000 unit capsule (VITAMIN D2, DRISDOL) 1 capsule once every month. calcium carbonate/vitamin d3(CALCIUM 600 + D 600 MG-125 UNIT TAB) one tablet every other day amoxicillin (POLYMOX, AMOXIL) 500 mg capsule Take 1 capsule by mouth twice daily for 10 days. FAMILY HISTORY Problem Relation Age of Onset other (MASTECTOMY) Father FOR BENIGN LESION Cancer Maternal Grandmother BACK CANCER Social History Tobacco Use Smoking status: Former Packs/day: 1.00 Years: 8.00 Pack years: 8.00 Types: Cigarettes Quit date: 07/12/1979 Years since quittin.0 Smokeless tobacco: Never Vaping Use Vaping Use: Never used Substance Use Topics Alcohol use: Yes Alcohol/week: 2.0 - 3.0 standard drinks Types: 2 - 3 Cans of Beer (12oz) per week Comment: OCCASIONALLY Drug use: No Objective Physical Exam Vitals and nursing note reviewed. Constitutional: General: She is not in acute distress. Appearance: Normal appearance. She is not toxic-appearing. HENT: Right Ear: Tympanic membrane, ear canal and external ear normal. Left Ear: Tympanic membrane, ear canal and external ear normal. Mouth/Throat: Mouth: Mucous membranes are moist. Pharynx: Uvula midline. No oropharyngeal exudate or posterior oropharyngeal erythema. Cardiovascular: Rate and Rhythm: Normal rate and regular rhythm. Heart sounds: Normal heart sounds. Pulmonary: Effort: Pulmonary effort is normal. No respiratory distress. Breath sounds: Normal breath sounds. No wheezing or rales. Skin: General: Skin is warm and dry. Findings: No erythema or rash. Neurological: Mental Status: She is alert. ASSESSMENT/PLAN: 1. Sore throat - ICD9: 462, ICD10: J02.9 (primary diagnosis) - STREP A MOLECULAR (POC) 2. Strep throat - ICD9: 034.0, ICD10: J02.0 - Alere Strep Test POSITIVE, no culture pending - antibiotic as written - Discussed supportive care treatment with fluids, rest and analgesia. - The patient may also use warm salt water gargles, throat lozenges and/or OTC throat spray as needed. - Contagious dz precautions discussed- including considered contagious until on antibiotics for 24 hours - Call back if drooling, increased temperature, symptoms of dehydration and/or still sick in one week - AMOXICILLIN 500 MG CAPSULE - Follow-up with your PCP in 3-5 days if symptoms have not improved or sooner if symptoms worsen - Discussed red flags and need for immediate medical evaluation if any occur. - Discussed supportive care treatment with fluids, rest and analgesia. - Discussed expected course of illness Joana Iqbal APRN.CNP documented in this encounterLouis Stokes [facility]12-27-2022 Instructions* Patient Instructions* Joana Iqbal APRN.CNP - 07/07/2022 6:49 PM EST ASSESSMENT/PLAN: 1. Sore throat - ICD9: 462, ICD10: J02.9 (primary diagnosis) - STREP A MOLECULAR (POC) 2. Strep throat - ICD9: 034.0, ICD10: J02.0 - Alere Strep Test POSITIVE, no culture pending - antibiotic as written - Discussed supportive care treatment with fluids, rest and analgesia. - The patient may also use warm salt water gargles, throat lozenges and/or OTC throat spray as needed. - Contagious dz precautions discussed- including considered contagious until on antibiotics for 24 hours - Call back if drooling, increased temperature, symptoms of dehydration and/or still sick in one week - AMOXICILLIN 500 MG CAPSULE - Follow-up with your PCP in 3-5 days if symptoms have not improved or sooner if symptoms worsen - Discussed red flags and need for immediate medical evaluation if any occur. - Discussed supportive care treatment with fluids, rest and analgesia. - Discussed expected course of illness Joana Iqbal APRN.CNP What is strep throat? Strep throat is an infection caused by a specific type of bacteria, Streptococcus. When your child has a strep throat, the tonsils are usually very inflamed, and the inflammation may affect the surrounding part of the throat as well. Symptoms Strep throat is caused by a bacterium called Streptococcus pyogenes. To some extent, the symptoms of strep throat depend on the child s age. Infants with strep infections may have only a low fever and a thickened or bloody nasal discharge. Toddlers (ages one to three) also may have a thickened or bloody nasal discharge with a fever. Suchchildren are usually quite cranky, have no appetite, and often have swollen glands in the neck. Sometimes toddlers will complain of tummy pain instead of a sore throat. Children over three years of age with strep are often more ill; they may have an extremely painful throat, fever over 102 degrees Fahrenheit (38.9 degrees Celsius), swollen glands in the neck, and pus on the tonsils. It s important to be able to distinguish a strep throat from a viral sore throat, because strep infections are treated with antibiotics. When to call the presser machine If your child has a sore throat that persists (not one that goes away after her first drink in the morning), whether or not it is accompanied by fever, headache, stomachache, or extreme fatigue, you should call your presser machine. That call should be made even more urgently if your child seems extremely ill, or if she has difficulty breathing or extreme trouble swallowing (causing her to drool). This may indicate a more serious infection. Treatment If the strep test shows that your child does have strep throat, your presser machine will prescribe anantibiotic to be taken by mouth or by injection. If your child is given the oral medication, it s very important that she take it for the full course, as prescribed, even if the symptoms get better or go away. If a child s strep throat is not treated with antibiotics, or if she doesn t complete the treatment, the infection may worsen or spread to other parts of her body, leading to conditions such as abscesses of the tonsils or kidney problems. Untreated strep infections also can lead to rheumatic fever, a disease that affects the heart. However, rheumatic fever is rare in the [place] and in children under five years old. Prevention Most types of throat infections are contagious, being passed primarily through the air on droplets of moisture or on the hands of infected children or adults. For that reason, it makes sense to keep your child away from people who have symptoms of this condition. However, most people are contagious before their first symptoms appear, so often there sreally no practical way to prevent your child from rose the disease. In the past when a child had several sore throats, her tonsils might have been removed in an attempt to prevent further infections. But this operation, called a tonsillectomy, is recommended today only for the most severely affected children. Even in difficult cases, where there is repeated strep throat, antibiotic treatment is usually the best solution. documented in this encounterLouis Stokes Cleveland [facility] Center10-20-2022 Miscellaneous Notes* Telephone Encounter - Kiley Rees APRN.CNP - 04/30/2022 8:35 AM EDT CMP updated to stat so patient can have results prior to reclast infusion. Kiley Rees APRN.CNP documented in this encounterLouis Stokes [facility] Center10-20-2022 Miscellaneous Notes* Telephone Encounter - Kiley Rees APRN.CNP - 04/30/2022 8:33 AM EDT Orders Placed Kiley Rees APRN.CNP * Telephone Encounter - Edith Sanchez RN - 04/30/2022 8:22 AM EDT Patient currently at [facility] awaiting a scheduled treatment. PSS Gale requesting lab order that patient needs placed prior to treatment. Requesting CMP be placed at this time, if possible. Please send message back to this sender so that Gale can be notified of order placed. Thank you. documented in this encounterLouis Stokes Cleveland [facility] Center10-06-2022 History of Present illness Narrative* Mitchell An MD - 04/16/2022 8:10 AM EDT Reason for Visit Patient presents with: Physical Jolie Jessica Healy is a 61 year old female who presents here today for CPE. Health Maintenance DEPRESSION ASSESSMENT COVID-19 VACCINE(3 - Booster for South series) INFLUENZA(1) MAMMOGRAM HPI Patient has been to therapy for her back, she has been doing better. Diet- she has been eating pretty healthy Sleep- does not sleep the best, Stress- she is not stressed much Exercise- she has to be better at exercising. They have a tread lea and elliptical and she knows she can go down stairs and do it. On reclast for osteopenia with risk factors of height loss and Strong family history of fracture inthe grandma. Mother is taking prolia. She is 1 year into treatment of relcast as she did not tolerate the fosamax She is non diabetic. And lipids are normal. No problem-specific Assessment & Plan notes found for this encounter. PAST MEDICAL HISTORY Diagnosis Date Former smoker quit 1979 1 ppd x 8 yrs Generalized anxiety disorder Hypoglycemia, unspecified Hypoglycemia LOW BLOOD SUGAR Multiple thyroid nodules Osteopenia PMH - PAST MEDICAL HISTORY OF THYROID NODULES PAST SURGICAL HISTORY Procedure Laterality Date BREAST AUGMENTATION WITH IMPLANT 03/12/2012 Breast augmentation COLONOSCOPY GEN ANES 2016 LIG/TRNSXJ FLP TUBE ABDL/VAG APPR UNI/BI 07/12/1989 THYROID FINE NEEDLE ASPIRATION 07/12/2005 FAMILY HISTORY Problem Relation Age of Onset other (MASTECTOMY) Father FOR BENIGN LESION Cancer Maternal Grandmother BACK CANCER Social History Tobacco Use Smoking status: Former Packs/day: 1.00 Years: 8.00 Pack years: 8.00 Types: Cigarettes Quit date: 07/12/1979 Years since quittin.7 Smokeless tobacco: Never Vaping Use Vaping Use: Never used Substance Use Topics Alcohol use: Yes Alcohol/week: 2.0 - 3.0 standard drinks Types: 2 - 3 Cans of Beer (12oz) per week Comment: OCCASIONALLY Drug use: No Past medical history, appointments, medications, allergies reviewed. Pertinent Lab/Diagnostic Studies are reviewed and discussed today Current Outpatient Medications: meloxicam (MOBIC) 15 mg tablet cetirizine HCl (ZYRTEC ORAL) multivitamin tablet ergocalciferol 50,000 unit capsule (VITAMIN D2, DRISDOL) calcium carbonate/vitamin d3(CALCIUM 600 + D 600 MG-125 UNIT TAB) Review of Systems CONSTITUTIONAL: No fevers, chills, nightsweats, unintended weight loss HEENT: Denies frequent or severe heaches, nasal congestion/sinus symptoms, problematic allergy problems. EYES: No diplopia or blurry vision. CARDIOVASCULAR: No chest pain, dyspnea, palpitations, orthopnea, PND, ankle edema. PULM: No dyspnea, unexplained cough. GI: No dysphagia/odynophagia, problematic reflux, constipation, diarrhea, changes in stool habits, hematochezia, melena. : No new urinary complaints, including dysuria, gross hematuria or pyuria. NEURO: No new balance problems, peripheral weakness/paresthesias or numbness of concern. MUSC-SKEL: No new joint pain, swelling, or erythema. PSY: No concerns regarding depression, anxiety or panic. INTEGUMENTARY: No new skin changes (rash, new or changing mole, new growth) Physical Exam BP 118/68 Pulse 65 Resp 16 Ht 162.1 cm (5' 3.82) Wt 58.6 kg (129 lb 3.2 oz) LMP 12/22/2012 SpO2 98% BMI 22.30 kg/m General appearance: Well appearing, alert, in no acute distress, well-hydrated, well nourished. Skin: Skin color, texture, turgor normal, no suspicious rashes or lesions Head: Normocephalic, no masses, lesions, tenderness or abnormalities Eyes: Anicteric sclera. Pupils are equally round and reactive to light. Extraocular movements are intact. Ears: External ears normal, canals clear Nose/Sinuses: Nares normal, septum midline, mucosa normal, no drainage or sinus tenderness Oropharynx: Lips, mucosa, and tongue normal, teeth and gums normal, oropharynx normal Neck: Supple, no adenopathy; thyroid symmetric, normal size, no bruits Back: Normal exam Lungs: Lungs clear to auscultation. No wheezing, rhonchi, rales Heart: RRR without murmur, gallop, or rubs. No ectopy Abdomen: Normal abdominal exam, Abdomen soft, non-tender. Bowel sounds normal. No masses, organomegaly Extremities: No deformities, edema, skin discoloration, clubbing or cyanosis. Good capillary refill. Musculoskeletal: No joint swelling, deformity, or tenderness Peripheral pulses: Normal Neuro: Gait normal. Reflexes normal and symmetric. Sensation grossly intact. ASSESSMENT/PLAN: 1. Annual physical exam - ICD9: V70.0, ICD10: Z00.00 - Counseled on healthy diet and regular exercise - Calcium intake with supplements or by diet of 1000 mg/day for under 50, 1200- 1500 mg/day for 50+ 2. Osteopenia of multiple sites - ICD9: 733.90, ICD10: M85.89 - ZOLEDRONIC ACID 5 MG/100 ML IN MANNITOL 5 %-WATER INTRAVENOUS PIGGYBCK 3. Height loss - ICD9: 781.91, ICD10: R29.890 - ZOLEDRONIC ACID 5 MG/100 ML IN MANNITOL 5 %-WATER INTRAVENOUS PIGGYBCK 4. Vitamin D deficiency - ICD9: 268.9, ICD10: E55.9 - VITAMIN D 25 HYDROXY 5. High risk for fracture due to osteoporosis by DEXA scan - ICD9: 733.00, ICD10: M81.0 Mitchell An MD documented in this encounterLouis [facility] History of Present illness Narrative* Amaury Sarkar PT - 12/01/2021 5:57 PM EDT Episode Visit Count: 3 Therapist That Will Oversee The Plan Of Care: Amaury Sarkar PT Start of Care Date: 11/17/21 Onset Date: 04/19/21 (chronic low back pain that worsened in 04/2021 without explanation) Plan of Care Certification Date: 11/17/21 Next Certification Due Date: 12/22/21 Patient Identified by Name and Date of : Yes REHABILITATION AND SPORTS THERAPY PHYSICAL THERAPY TREATMENT NOTE ASSESSMENT: Jolie Healy tolerated the session with fatigue, decreased pain, expected muscle soreness and no issues. She demonstrated improvements in pain and self management. The patient will continue to benefit from ongoing skilled physical therapy to progress toward set goals. PLAN FOR NEXT VISIT: Review, correct and progress HEP to tolerance. Continue with postural correction and body mechanicsinstruction. Continue with postural stretching and strengthening therex with focus on her extensiondirectional preference. Consider manual belt traction prn. Pt needs to cancel visit 12/11/21 but willcontinue HEP and follow up 12/15/21. SUBJECTIVE: Patient Reason for Visit: Pt reports that overall she is still doing very well and is currently pain-free. She reports compliance with HEP 3x day. She reports one episode of pain in R hipregion since last session and a round of HEP fully resolved this pain. She denies any pain to starttoday. Pain: Pain Pain Level: 0 Pain Location: Low Back/Lumbar Spine - Left;Buttocks - Left;Hip - Left;Thigh - Left;Knee - Left Description: (no pain to start today) Frequency: Intermittent Post Treatment Pain Post Treatment Pain Level: 0 Post Treatment Pain Location: Low Back/Lumbar Spine - Right;Low Back/Lumbar Spine - Left;Buttocks -Right;Buttocks - Left;Hip - Right;Hip - Left Post Treatment Pain Description: (fatigue only) Post Treatment Symptoms: During and after session today, pt reported getting a good workout but denied any increase in pain. She continued to report 0/10. OBJECTIVE MEASURES WITH LEVEL OF FUNCTION: TREATMENT: Therapeutic Exercise: 1: Retro TM 0.8mph x5 minutes (Pt was educated on the purpose of this exercise and what to expect. Plan of care reviewed during this.) 2: plan of care options discussed 3: prone on elbows x3 minutes 4: *prone press ups 2x10 with exhale at end range 5: prone B alt hip ext SLR 2x12 6: modified kneeling plank 3x30 seconds 7: standing lumbar extension reviewed for HEP 8: Back extension machine 60# 3x10 9: seated pull downs at Hoist with priyank overhead and elbows extensded throughout 2 plates 3x10 emphasis on form 10: standing at Hoist stirring the pot 1 plate plus 1 round 2x10 CW and 2x10 CCW facing both directions 11: *standard planks offered as an option when kneeling version gets too easy 3x30 seconds 12: *quadruped B alt hip ext 2x10 (prone alt UE/LE lifts attempted but stopped secondary to R buttock pain) 13: *crunches 2x10 Skilled Intervention: Patient was educated in proper exercise technique and purpose for exercises. Reviewed and educated patient on additions/changes for home exercise program as above (*). Skilled judgment was provided in selection of appropriate interventions. Provided written instruction for home exercise program to facilitate proper performance and compliance. Correct performance of therapeutic exercises was facilitated with verbal, visual and tactile cuing. Patient education as noted. Billing Therapeutic Exercise Treatment Minutes: 45 Total Treatment Time Minutes (timed/untimed): 45 Amaury Sarkar PT documented in this encounterLouis [facility] History of Present illness Narrative* Amaury Sarkar PT - 11/28/2021 11:16 AM EDT Episode Visit Count: 2 Therapist That Will Oversee The Plan Of Care: Amaury Sarkar PT Start of Care Date: 11/17/21 Onset Date: 04/19/21 (chronic low back pain that worsened in 04/2021 without explanation) Plan of Care Certification Date: 11/17/21 Next Certification Due Date: 12/22/21 Patient Identified by Name and Date of : Yes REHABILITATION AND SPORTS THERAPY PHYSICAL THERAPY TREATMENT NOTE ASSESSMENT: Jolie Healy tolerated the session with fatigue, decreased pain and expected muscle soreness. She demonstrated improvements in pain, postural awareness, radicular symptoms and exercise tolerance. The patient will continue to benefit from ongoing skilled physical therapy to progress toward set goals. PLAN FOR NEXT VISIT: Review, correct and progress HEP to tolerance. Continue with postural correction and body mechanicsinstruction. Continue with postural stretching and strengthening therex with focus on her extensiondirectional preference. Consider manual belt traction prn. SUBJECTIVE: Patient Reason for Visit: Pt reports that overall she is doing very well with decreasedpain and NO L LE pain. She reports that she has been compliant with HEP 3x day with excellent results. She reports that HEP completion feels good. She denies any pain to start today. She does report i ntermittent pain at lateral aspect of R hip 2-3x week with short duration. Pain: Pain Pain Level: 0 Pain Location: Low Back/Lumbar Spine - Left;Buttocks - Left;Hip - Left;Thigh - Left;Knee - Left Description: (No pain to start today.) Frequency: Intermittent Post Treatment Pain Post Treatment Pain Level: 0 Post Treatment Pain Location: Low Back/Lumbar Spine - Left;Buttocks - Left;Hip - Left Post Treatment Pain Description: (fatigue only) Post Treatment Symptoms: After session she reported fatigue from therex but she denied any pain andcontinued to rate pain 0/10 OBJECTIVE MEASURES WITH LEVEL OF FUNCTION: TREATMENT: Therapeutic Exercise: 1: Retro TM 0.8mph x5 minutes (Pt was educated on the purpose of this exercise and what to expect. Plan of care reviewed during this.) 2: prone lying x3 minutes 3: prone on elbows x3 minutes 4: prone press ups 2x10 5: *prone B alt hip ext SLR 2x10 6: *modified kneeling plank 3x30 seconds 7: *standing lumbar extension 2x10 8: Back extension machine 50# 3x10 9: seated pull downs at Hoist with priyank overhead and elbows extensded throughout 1 plate plus 3 round 3x10 emphasis on form 10: standing at Hoist stirring the pot 1 plate plus 1 round x10 CW and x10 CCW facing both directions Skilled Intervention: Patient was educated in proper exercise technique and purpose for exercises. Reviewed and educated patient on additions/changes for home exercise program as above (*). Skilled judgment was provided in selection of appropriate interventions. Provided written instruction for home exercise program to facilitate proper performance and compliance. Correct performance of therapeutic exercises was facilitated with verbal, visual and tactile cuing. Patient education as noted. Billing Therapeutic Exercise Treatment Minutes: 40 Total Treatment Time Minutes (timed/untimed): 40 Amaury Sarkar PT documented in this encounterLouis [facility]05-09-2022 History of Present illness Narrative* Amaury Sarkar PT - 11/17/2021 2:44 PM EDT Episode Visit Count: 1 Therapist That Will Oversee The Plan Of Care: Amaury Sarkar PT Start of Care Date: 11/17/21 Onset Date: 04/19/21 (chronic low back pain that worsened in 04/2021 without explanation) Plan of Care Certification Date: 11/17/21 Next Certification Due Date: 12/22/21 Patient Identified by Name and Date of : Yes REHABILITATION AND SPORTS THERAPY PHYSICAL THERAPY EVALUATION PLAN OF CARE: Assessment: Jolie Healy presents with chief complaint of L low back pain with intermittent L LE radiculopathy that interferes with bending;lifting;sitting (yardwork, prolonged sitting). She presents with impairments in independence in exercise, overall function, range of motion, strength and tissuetenderness. PROMIS (Patient-Reported Outcomes Measurement Information System) scores were reviewed and physical function domain identified as a rehabilitation concern. Prognosis for therapy is Excellent due to: current objective clinical presentation;good overall health status;within-session changes;good support system/ coping skills. She will benefit from skilled therapy services to meet the goals established for this plan of care as noted below. Classification Low Back Pain Subgroup Classification: Core stabilization subgroup: recommended visits 10. Core Stabilization Subgroup Classification based on: pain with transitional movements (pain with prolonged positions.) Goals for Episode of Care: created on 11/17/21 through 12/22/21 Independent in home exercises. Patient will decrease pain to 0/10 at rest and with functional activities to allow patient to improve bending. Restore pain-free lumbar ROM to WFL to allow for improved tolerance with sitting, bending and lifting. Sleep through night without pain/symptoms. Sit without limitations, without pain/symptoms to allow for increased sitting tolerance. Patient will be able to tolerate bending, lifting, sitting and yardwork without increased symptoms. Patient will increase strength of core and postural muscles to WFL to allow for increased sitting tolerance, lifting and yardwork. Patient Goals: decrease low back pain and establish HEP to manage low back pain Planned Interventions, Frequency, and Duration: Current Frequency: 2x/week Duration: 5 weeks Total Number of Visits Planned: 10 Planned Treatment Interventions: Therapeutic exercise (25537);Manual therapy (85330);Self-care homemanagement ([id number]);Patient/Family/Caregiver Education;Body Mechanics Training;Functional training PLAN FOR NEXT VISIT: Review, correct and progress HEP to tolerance. Continue with postural correction and body mechanics instruction. Continue with postural stretching and strengthening therex with focus on her extension directional preference. Consider manual belt traction prn. Patient demonstrates good understanding of plan of care and treatment. The above goals and plan of care were discussed and agreed upon by patient/family. SUBJECTIVE: Jolie Healy is a 61 year old female seen today for constant pain in L low back and buttock that is usually intermittent but is currently constant without explanation. She also reports intermittent posterior L thigh and knee pain. Currently this is not a significant issue. She reports chronic low back pain that worsened in 04/2021 without explanation. She reports that meloxicam was very effective initially but then it flare up and medication is not helping. She reports unpredictable fluctuation in pain frequency and intensity. 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 Cancer Clinical Reasoning: No identified risk factors. Infection Clinical Reasoning: No identified risk factors. Cauda Equina Syndrome Clinical Reasoning: No identified risk factors. Red Flags - Cervical Cancer Clinical Reasoning: No identified risk factors. Infection Clinical Reasoning: No identified risk factors. Spine History Symptoms Location at Onset: Buttock;Back Symptoms Since Onset: Worsening Pain is Worse Always: Sitting;Bending;Prolonged positions Pain is Better Always: Lying (laying on involved side) Previous Episodes: Yes Previous Spine Episodes: chronic low back pain that never received treatment Sleeping Position: Side lying left Sleep Affected by Pain: Pain keeps from falling asleep Pain: Pain Pain Level: 2 (2/10 currently) Pain Location: Low Back/Lumbar Spine - Left;Buttocks - Left;Hip - Left;Thigh - Left;Knee - Left Description: Sharp (feels like it clicks) Frequency: Continuous Detailed Pain Score: Yes Worst Pain Level: 8 Average Pain Level: 2 Best Pain Level: 0 Post Treatment Pain Post Treatment Pain Level: 0 Post Treatment Pain Location: Low Back/Lumbar Spine - Left;Buttocks - Left;Hip - Left Post Treatment Pain Description: (Better) Post Treatment Symptoms: After treatment today, pt reported feeling better with all symptoms resolved when she stood up to leave. PROMIS Scales Higher is Better 02/09/2021 10/25/2021 11/16/2021 Phys Func - Score - - 44 (mild dysfunction) Phys Func - Percentile - - 27 % Social Roles - Score - - 46 (within normal limits) Social Role - Percentile - - 34 % GH Physical - Score 54.1 (Very Good) 44.9 (Good) - GH Physical - Percentile 66 % 31 % - GH Mental - Score 53.3 (Very Good) 50.8 (Very Good) - GH Mental - Percentile 63 % 53 % - Self-Eff Symptom - Score - - 49 (Average) Self-Eff Symptom - Percentile - - 46 % T-scores: mean of general population = 50. 5 points is clinically meaningfully difference Percentiles provide an indication of how the patient's score ranks in relation to the general population. Higher percentile rankings indicate better function/quality of life. 50th percentile is the average of the general population and indicates half of respondents had a worse score. Lower is Better 09/08/2020 11/16/2021 Fatigue - Score 36 (within normal limits) 46 (within normal limits) Fatigue - Percentile 92 % 66 % T-scores: mean of general population = 50. 5 points is clinically meaningfully difference Percentiles provide an indication of how the patient's score ranks in relation to the general population. Higher percentile rankings indicate better function/quality of life. 50th percentile is the average of the general population and indicates half of respondents had a worse score. OBJECTIVE MEASURES WITH LEVEL OF FUNCTION: Posture / Alignment Posture: Forward head;Increased thoracic kyphosis;Rounded shoulders;Poor;Slump Lumbo - Pelvic Alignment: In standing: ASIS and PSIS are level Spine Observations R Lumbar Spine Palpation Tenderness: Piriformis L Lumbar Spine Palpation Tenderness: No tenderness noted Sensation - Lumbar Sensation: Grossly Intact Lumbar Spine AROM Lumbar Flexion: Moderate limitation Lumbar Extension: Major limitation Lumbar R Side-Bend: Normal;Increased pain Lumbar L Side-Bend: Normal;Increased pain Lumbar R Rotation: Normal Lumbar L Rotation: Normal;Increased pain LE Flexibility Flexibility: Piriformis Flexibility R Piriformis Flexibility: 35 L Piriformis Flexibility: 32 LE Strength Trunk Strength: Pt's job demands, reported chronicity of symptoms, reported functional difficultiesand postural deficits indicate that she will benefit from increased core and postural strength. R LE Strength: No asymmetrical myotomal weakness detected in B LEs at this time. L LE Strength: No asymmetrical myotomal weakness detected in B LEs at this time except for slight weakness in L great toe extension. R Great Toes Extension (L5, S1): 5/5 L Great Toes Extension (L5, S1): 4/5 Special Tests - Hip and Spine Hip and Spine Special Tests: SLR Test SLR Test: Right Positive;Left Positive Gait Gait Observation: normal Education: Education Learning Preferences: Demonstration;Explanation;Performance;Printed Materials Barriers: None Learning/educational needs: Lifestyle changes;Health promotion;Home exercise program;Plan of Care;Posture;Body Mechanics Education Provided: Yes, see treatment interventions for education provided Education Provided To: Patient Education Mode/Type: Demonstration;Explanation/Discussion;Literature/Printed Materials;Performance Response to Education/Teach Back: States/Identifies;Return Demonstration;Requires Review/AdditionalEducation TREATMENT: PT Treatment Interventions: Therapeutic Exercise;Self-Snf Management Evaluation Therapeutic Exercise: 1: Pt was educated on the importance of stopping any exercise that causes increased pain. She was educateed on the concept of centralization versus peripheralization and all precautions. 2: *prone lying x3 minutes 3: *prone on elbows x3 minutes 4: *prone press ups 2x10 Skilled Intervention: Patient was educated in proper exercise technique and purpose for exercises. Reviewed and educated patient on additions/changes for home exercise program as above (*). Skilled judgment was provided in selection of appropriate interventions. Provided written instruction for home exercise program to facilitate proper performance and compliance. Correct performance of therapeutic exercises was facilitated with verbal and visual cuing. Patient education as noted. Self-Snf Management: 1: Pt was educated extensively on anatomy of symptomatic area, likely source of symptoms and rationale for proposed treatment plan. She was educated on postural correction and the critical importanceof this. She was educated on proper body mechanics and the implications of poor body mechanics. Shewas educated on the 7- 10x force multiplication factor with poor body mechanics. Proper posture and p rhett lifting technique were instructed and demonstrated. She was specifically instructed on properposture with sleeping with pillow placements as well as proper car seat set up. Proper lifting technique demonstrated and emphasized. The effects of flexion and extension on lumbar spine discs was explained and pictures were used to clarify education. Handouts were provided on posture and body mechanics. Her directional preference was explained and rationale provided. Skilled Intervention: Skilled judgment in the selection of proper modification for activity of daily living/home management based on clinical presentation, deficits, and needs. Educated the patient regarding recommendations and provided written instruction to facilitate compliance. Provided written instruction for activities of daily living techniques to facilitate proper performance and compliance. Reviewed patient specific diagnosis in relation to activities of daily living/home management. Billing * Evaluation Low Complexity: 1 Unit Therapeutic Exercise Treatment Minutes: 15 Self-Care/Home Management Treatment Minutes: 20 Total Treatment Time Minutes (timed/untimed): 55 Amaury Sarkar PT documented in this encounterLouis [facility]05-02-2022 History of Present illness Narrative* Justin Jones RT(R) - 11/10/2021 10:10 AM EDT Radiology Service Progress Note PATIENT NAME: Jolie Healy DATE OF SERVICE: November 10, 2021 TIME: 10:22 AM PATIENT IDENTITY VERIFICATION COMPLETED USING TWO (2) IDENTIFIERS: Name and Date of confirmedby patient verbally. FALL SCREENING: Has the patient had 2 falls in the last year or 1 fall with injury or currently using an Ambulatory Assistive Device (Walker, Cane, Wheelchair, Crutches, etc.)? No PATIENT GENDER DATA: Female. status: : No status: NO. PATIENT RELEVANT IMPLANT DATA REVIEWED: Not Applicable RADIOLOGY DEPARTMENT: General X-ray: Exam(s) Completed: Pelvis X-Ray: Pelvis with Hip Left PERIPHERAL IV DATA: Not applicable SIGNED BY: RT Lorena(Sweetie) November 10, 2021 10:22 AM documented in this encounterLouis Stokes [facility]04-18-2022 Miscellaneous Notes* Telephone Encounter - Jaden Wilson - 10/27/2021 3:47 PM EDT Pt is scheduled for their MSK US on 12/11 at [facility]. * Telephone Encounter - Admin Nicole Steel - 10/27/2021 3:35 PM EDT Visit Type: ANY MSK Visit Length: 45, 50 OR 60 MINUTES Order Name/Protocol: US HIP LT; ANTERIOR-EVAL FOR QUESTIONABLE BURSITIS Preferred Provider: N/A Comment: Please ask if the patient has ever had any prior surgery to their LT hip. If so, upgrade the visit type to an MSK1 and notate the surgical hx in the Appointment Note. Location: Depending on the surgical hx, this patient can have this exam performed at any of our three locations. Slot held: N/A documented in this encounterLouis Stokes [facility]04-18-2022 History of Present illness Narrative* Mitchell An MD - 10/27/2021 1:59 PM EDT Reason for Visit Patient presents with: c/o leg and chest pain Jolie Healy is a 61 year old female who presents here today for Above Complaints.. Health Maintenance DEPRESSION SCREENING HPI Left hip pain: for a month now pain is constant but was present further on and off, worst is at night time 8/10, now is 2/10, it is a pulling pain, knee throbs, a couple times it catches and pinches her, if she stretches her legs, she feels better, if she lays on her left hip it feels better but ifshe lays on her right hip it is worse. I had given her meloxicam which she took and initially it helped her but now she states it does nothelp her anymore She also complains that she has a sudden tightness in her chest that last for a few seconds at a time there is no associated findings, no chest pain but she does have panic and bronchospasm. On and off. I told her that cardiac would be a little bit more lasting and can come on with the repeated intensity of exercise. With checking her cholesterols her blood pressure is normal at this time No problem-specific Assessment & Plan notes found for this encounter. PAST MEDICAL HISTORY Diagnosis Date Former smoker quit 1979 1 ppd x 8 yrs Generalized anxiety disorder Hypoglycemia, unspecified Hypoglycemia LOW BLOOD SUGAR Multiple thyroid nodules Osteopenia PMH - PAST MEDICAL HISTORY OF THYROID NODULES PAST SURGICAL HISTORY Procedure Laterality Date BREAST AUGMENTATION WITH IMPLANT 03/12/2012 Breast augmentation COLONOSCOPY GEN ANES 2016 LIG/TRNSXJ FLP TUBE ABDL/VAG APPR UNI/BI 07/12/1989 THYROID FINE NEEDLE ASPIRATION 07/12/2005 FAMILY HISTORY Problem Relation Age of Onset other (MASTECTOMY) Father FOR BENIGN LESION Cancer Maternal Grandmother BACK CANCER Social History Tobacco Use Smoking status: Former Smoker Packs/day: 1.00 Years: 8.00 Pack years: 8.00 Types: Cigarettes Quit date: 07/12/1979 Years since quittin.3 Smokeless tobacco: Never Used Vaping Use Vaping Use: Never used Substance Use Topics Alcohol use: Yes Alcohol/week: 2.0 - 3.0 standard drinks Types: 2 - 3 Cans of Beer (12oz) per week Comment: OCCASIONALLY Drug use: No Past medical history, appointments, medications, allergies reviewed. Pertinent Lab/Diagnostic Studies are reviewed and discussed today Current Outpatient Medications: meloxicam (MOBIC) 15 mg tablet cetirizine HCl (ZYRTEC ORAL) multivitamin tablet ergocalciferol 50,000 unit capsule (VITAMIN D2, DRISDOL) calcium carbonate/vitamin d3(CALCIUM 600 + D 600 MG-125 UNIT TAB) Review of Systems CONSTITUTIONAL: No fevers, chills night sweats, unintended weight loss CARDIOVASCULAR: No chest pain, dyspnea, palpitations, orthopnea, PND, ankle edema. PULM: No dyspnea, unexplained cough. GI: No dysphagia/odynophagia, problematic reflux, constipation, diarrhea, changes in stool habits, hematochezia, melena. : No new urinary complaints, including dysuria, gross hematuria or pyuria. NEURO: No new balance problems, peripheral weakness/paresthesias or numbness of concern. Physical Exam BP 122/64 Pulse 76 Resp 12 Wt 56.7 kg (125 lb) LMP 12/22/2012 SpO2 94% BMI 22.50 kg/m General appearance: Well appearing, alert, in no acute distress, well nourished. Skin: Skin color, texture, turgor normal, no suspicious rashes or lesions Head: Normocephalic, no masses, lesions, tenderness or abnormalities Eyes: Anicteric sclera. Pupils are equally round and reactive to light. Extraocular movements are intact. Lungs: Lungs clear to auscultation. No wheezing, rhonchi, rales Heart: RRR without murmur, gallop, or rubs. Left hip: no pain to palpation of the trochanter or groin, there is pain to active straight leg raising in the left groin, no pain to passively left leg raising ASSESSMENT/PLAN: 1. Left hip pain - ICD9: 719.45, ICD10: M25.552 (primary diagnosis) Unclear reason a questionable bursitis because it pinches on certain movements - US HIP LT - CONSULT TO ORTHOPAEDICS 2. Lipid screening - ICD9: V77.91, ICD10: Z13.220 - LIPID PANEL BASIC 3. Elevated blood sugar - ICD9: 790.29, ICD10: R73.9 - HGB A1C Mitchell An [facility] Author Franco Jarrett [facility] Note Date/Time October 03, 2024 6:3 3am [facility] Medical Records Department [address] [place] [address] Pre-Anesthesia Evaluation 10/03/24627 MR#: [id number] Acct: [id number] Name: JOLIE HEALY Rep #:[id number] : 1960 64 From: Franco Jarrett MD PCP: Dr. Jolie Parsons MD Status:REG SDC Y Race: C Location: [place] [address]- ASA Classification* ASA Classification ASA Classification: 2 Assessment & Plan Anesthesia* Anesthesia Assessment Anesthesia Assessment: Discussed sedation and/or anesthesia options, risks, benefits, and alternatives with patient/parents/legal guardian/POA. Questions invited. The patient/parents/legal guardian/POA seems to understand and agrees to proceedwith anesthesia plan. Reviewed the physical assessment, medical history, allergy history and patient home medications list prior to surgery/procedure/anesthetic and documented any changes. Performed airway and anesthesia risk assessments. Anesthesia Type Anesthesia Type: MAC History Source History Obtained from:: Patient and Chart Anesthesia Focused Assessment* Temperature: 97.1 F Pulse Rate: 74 Blood Pressure: 120/73 Respiratory Rate: 16 Pulse Ox: 100 Oxygen Delivery Method: Room Air Airway Assessment Mouth opens: >3 cm Mallampati Score: I Teeth Condition: Caps/Crowns ([place] on left lower molar. It is tight.) Neck Range of motion (ROM): Full ROM Focused Labs Anesthesia Preop lab: CBC CHEMISTRY Potassium 3.9 mmol/L (3.5-5.1) 08/19/20 10:18 08/19/20 Sodium 140 mmol/L (136-145) 08/19/20 10:18 08/19/20 BUN 14 mg/dL (7-18) 08/19/20 10:18 08/19/20 Creatinine 0.98 mg/dL (0.55-1.02) 08/19/20 10:18 08/19/20 Glucose 87 mg/dL (74-106) 08/19/20 10:18 08/19/20 TSH 0.77 uIU/mL (0.358-3.74) 08/19/20 10:18 COAG Pre-Assessment Diagnosis/Proposed Procedure Planned Operative Procedure(s): cscope oa Anesthesia History Anesthesia History - smooth stucco resurfacer: Anesthesia History - smooth stucco resurfacer Hx Hospitalization No 09/29/24 08:28 Any Problems With Anesthesia No 09/29/24 08:28 Cholinesterase deficiency No 09/29/24 08:28 You/Your Family Experience No 09/29/24 08:28 fever (hyperthermia) with Relationship Recent Exposure to Contagious No 10/03/24 05:43 Disease Does patient have nerve No 09/29/24 08:28 stimulator Patient instructed to have device shut off --Does patient have Pacemaker No 10/03/24 05:45 or ICD? When Was Last Pacemaker Check QUESTION #4 FULL TEXT: You/Your Family Experience fever (hyperthermia) with Anesthesia Last Oral Intake Last Oral intake: Last Oral Intake NPO since 01:00 10/03/24 05:45 Meds taken in AM with sips of No 10/03/24 05:45 water? Meds patient instructed to take am of surgery Any additional information?: Yes NPO since: 01:00 (Patient finished prep at 1 AM.) PONV PONV - smooth stucco resurfacer: PONV - smooth stucco resurfacer Female Yes 09/29/24 08:28 HX of Motion Sickness Yes 09/29/24 08:28 HX of N/V After Surgery No 09/29/24 08:28 Non-Smoker Yes 09/29/24 08:28 Duration of Surgery greater No 09/29/24 08:28 than 60 minutes Number of Risk Factors 3 09/29/24 08:28 PONV Score Moderate Risk 09/29/24 08:28 Height & Weight Height & Weight: Anesthesia: Height & Weight Height 5 ft 3 in 10/03/24 05:45 Weight: 56.245 kg 10/03/24 05:45 Body Mass Index (BMI) 21.9 10/03/24 05:45 Respiratory Assessment Respiratory Assessment - smooth stucco resurfacer: Respiratory Tract Infection Hx - smooth stucco resurfacer Hx Respiratory Tract Infection No 09/29/24 08:28 STOP Sleep Apnea STOP Sleep Apnea - smooth stucco resurfacer: STOP Sleep Apnea - smooth stucco resurfacer Hx Hypertension No 09/29/24 08:28 Hx Sleep Apnea No 09/29/24 08:28 CPAP BIPAP Do you snore loudly (louder No 09/29/24 08:28 than talking or can be heard Do you often feel tired/ No 09/29/24 08:28 fatigued/ sleepy during daytime? Has anyone observed you stop No 09/29/24 08:28 breathing during sleep? STOP Results Negative 09/29/24 08:28 QUESTION #5 FULL TEXT : Do you snore loudly (louder than talking or can be heard through closed doors)? 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 Specify any problems Hx of Preganancy in last 3 No 09/29/24 08:28 Months Nurse Filling Out Transfusion DSCHRIBER 09/29/24 08:28 & Questions: Date: 09/29/24 09/29/24 08:28 Time: 08:30 09/29/24 08:28 Patient unable to answer at this time (ie. confused, unrespo /Reproduction History /Reproductive History - smooth stucco resurfacer: /Reproductive Hx- smooth stucco resurfacer Hx Now No 09/29/24 08:28 Gestational Age (in weeks): EDC: Hx Hx Para Hx Section SAB No 09/29/24 08:28 PFSH Medical History Loss of hearing Post-menopausal Alcohol use Arthritis Back pain Non-smoker Vitamin D deficiency Osteopenia Low calcium levels nodules on thyroid Home Medications ?Medication ?Instructions ?Recorded ?Last Taken ?Type ergocalciferol (vitamin D2) 1,250 1,250 mcg PO QMONTH 08/19/20 09/09/24 History mcg (50,000 unit) capsule (Vitamin D2) B-complex with vitamin C 1 tab PO QDAY 06/27/2409/30 History calcium 333 mg 1 tab PO QDAY 06/27/2409/30 History (carbonate)-magnesium 133 mg (oxide)-zinc 5 mg tablet meloxicam 7.5 mg tablet 7.5 mg PO QDAY PRN pain 06/11 02/01 Unknown History multivitamin 1 tab PO QDAY 06/27/24 Unkno wn History naproxen 500 mg tablet 500 mg PO BID 09/29/2410/01 History cetirizine 10 mg tablet (24Hour 10 mg PO DAILY 5 10/02/24 History Allergy) Allergy/AdvReac Type Severity Reaction Status Date / Time amoxicillin Allergy Mild Hives Verified 10/03/24 05:41 Family History Other Anxiety Arthritis Asthma Depression Osteoporosis Skin cancer Thyroid disorder Surgical History Hx of colonoscopy H/O breast augmentation Social History household members: spouse current occupational status: retired Smoking Status: Never smoker alcohol intake: current alcohol intake frequency: holidays/special occasions only substance use type: does not use seatbelt use: always do you feel safe at home: Yes additional social history: - 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 Review of Systems (Anesthesia) ROS Narrative System reviewed and no additional complaints, except as documented. 10/03/24 0633 <Electronically signed by Franco jackson MD> Date _ Franco Caputo Signature: Date CC: ~ Signed [facility] Work Phone: Consult note Author Davey Delarosa [facility] Note Date/Time October 03, 2024 7:2 8am [facility] Medical Records Department [address] [place] [address] Anesthesia Postop Eval I 10/03/24727 MR#: [id number] Acct: [id number] Name: JOLIE HEALY Rep #:[id number] : 1960 64 From: Davey Delarosa PCP: Dr. Jolie Parsons MD Status:REG SDC Y Race: C Location: [place] [address] Anesthesia: Postop Eval I Current Vital Signs Temperature: 97.1 F Pulse Rate: 71 Blood Pressure: 88/56 Respiratory Rate: 16 Pulse Ox: 98 Oxygen Delivery Method: Room Air Assessment Airway patent: Yes Spontaneous unlabored respirations: Yes Mental status: Awake and Calm nausea: No Vomiting: No Anesthesia Complication: No Fluid Hydration Crystalloid volume administer (ml): 45 Total IV fluid infused: 45 Progress Note Anesthesia document: Postop Eval 1 completed: Yes 10/03/24727 <Electronically signed by Davey Delarosa > Date _ Davey Gastelum Signature: Date CC: ~ Signed [facility] Work Phone: Evaluation note* Diagnosis Left hip pain- Primary Pain in joint, pelvic region and thigh Lipid screening Screening for lipoid disorders Elevated blood sugar Other abnormal glucose [facility] Pain in left hip- Primary Pain in joint, pelvic region and thigh [facility] Diagnosis Pain in left hip Pain in joint, pelvic region and thigh [facility]* Diagnosis Chronic bilateral low back pain without sciatica Lumbar disc herniation with radiculopathy Displacement of lumbar intervertebral disc without myelopathy Intervertebral disc disorder with radiculopathy of lumbar region Thoracic or lumbosacral neuritis or radiculitis, unspecified [facility] Diagnosis Lumbar disc herniation with radiculopathy- Primary Displacement of lumbar intervertebral disc without myelopathy [facility] Diagnosis Lumbar disc herniation with radiculopathy- Primary Displacement of lumbar intervertebral disc without myelopathy [facility]* Diagnosis Annual physical exam- Primary Routine general medical examination at a health care facility Osteopenia of multiple sites Height loss Loss of height Vitamin D deficiency Unspecified vitamin D deficiency High risk for fracture due to osteoporosis by DEXA scan Osteoporosis, unspecified documented [facility] this [facility]* Diagnosis Medication management- Primary Encounter for long-term (current) use of other medications Annual physical exam Routine general medical examination at a health care facility documented [facility] this encounter [facility]* Diagnosis Annual physical exam- Primary Routine general medical examination at a health care facility documented [facility] this encounter [facility]* Diagnosis Age-related osteoporosis without current pathological fracture- Primary Senile osteoporosis documented [facility] this encounter [facility]* Diagnosis Sore throat- Primary Acute pharyngitis Strep throat Streptococcal sore throat [facility] Diagnosis Encounter for screening mammogram for breast cancer documented [facility] this [facility]* Diagnosis Encounter for gynecological examination (general) (routine) without abnormal findings- Primary Encounter for screening mammogram for breast cancer documented [facility] this encounter [facility]* Diagnosis Wellness examination- Primary Age-related osteoporosis without current pathological fracture Senile osteoporosis Multiple thyroid nodules Nontoxic multinodular goiter Sleep disorder Sleep disturbance, unspecified Mood changes Unspecified episodic mood disorder Vitamin D deficiency Unspecified vitamin D deficiency Encounter for immunization Need for other specified prophylactic vaccination against single bacterial disease Encounter for therapeutic drug monitoring [facility]* Diagnosis Encounter for therapeutic drug monitoring- Primary documented in this encounter [facility]* Diagnosis Encounter for screening mammogram for breast cancer [facility]* Diagnosis Age-related osteoporosis without current pathological fracture Senile osteoporosis documented [facility] this encounter [facility]* Diagnosis Age-related osteoporosis without current pathological fracture- Primary Senile osteoporosis documented in this encounter [facility]* Diagnosis Encounter for screening mammogram for breast cancer [facility]* Diagnosis Encounter for screening mammogram for breast cancer documented in this encounter [facility] noteNo assessment information availableWMcCullough-[facility] Work Phone: Evaluation note* Diagnosis Screening for colorectal cancer- Primary Special screening for malignant neoplasms, colon documented in this encounter [facility] Author Vinnie Enrique [facility] Note Date/Time October 03, 2024 7:0 0am [facility] Medical Records Department [address] [place] [address] History & Physical Exam 10/03/24 0658 MR#: [id number] Acct: [id number] Name: JOLIE HEALY Rep #:[id number] : 1960 64 From: iVnnie Enrique DO PCP: Dr. Jolie Parsons MD Status:[facility] Location: [place] [address] HPI - General General Date of Admission: 10/03/24 Date of Service: 10/03/24 Chief Complaint: Screening colonoscopy HPI Narrative JOLIE HEALY, is a 64 F who presents today for screening colonoscopy. She has not had a colonoscopy in the past. She has no medical history. She does not take any medicines on daily basis. [facility] Medical History Loss of hearing Post-menopausal Alcohol use Arthritis Back pain Non-smoker Vitamin D deficiency Osteopenia Low calcium levels nodules on thyroid Home Medications ?Medication ?Instructions ?Recorded ?Last Taken ?Type ergocalciferol (vitamin D2) 1,250 1,250 mcg PO QMONTH 08/19/20 09/09/24 History mcg (50,000 unit) capsule (Vitamin D2) B-complex with vitamin C 1 tab PO QDAY 06/27/2409/30 History calcium 333 mg 1 tab PO QDAY 06/27/2409/30 History (carbonate)-magnesium 133 mg (oxide)-zinc 5 mg tablet meloxicam 7.5 mg tablet 7.5 mg PO QDAY PRN pain 06/11 02/01 Unknown History multivitamin 1 tab PO QDAY 06/27/24 Unkno wn History naproxen 500 mg tablet 500 mg PO BID 09/29/2410/01 History cetirizine 10 mg tablet (24Hour 10 mg PO DAILY 5 10/02/24 History Allergy) Allergy/AdvReac Type Severity Reaction Status Date / Time amoxicillin Allergy Mild Hives Verified 10/03/24 05:41 Family History Other Anxiety Arthritis Asthma Depression Osteoporosis Skin cancer Thyroid disorder Surgical History Hx of colonoscopy H/O breast augmentation Social History household members: spouse current occupational status: retired Smoking Status: Never smoker alcohol intake: current alcohol intake frequency: holidays/special occasions only substance use type: does not use seatbelt use: always do you feel safe at home: Yes additional social history: - 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 ROS Constitutional Constitutional: Denies fatigue, fever(s), poor appetite, weight gain or weight loss Gastrointestinal Gastrointestinal: Denies belching, bloating, change in bowel habits, change in stool character, chewing difficulty, coffee ground emesis, constipation, cramping, diarrhea, dyspepsia, dysphagia, early satiety, excessive flatus, fecalincontinence, heartburn, hematemesis, hematochezia, hemorrhoids, loose stools, melena, nausea, odynophagia, rectal bleeding, tenesmus, vomiting or weight changes Vital Signs Vital Signs Vital Signs: 10/03/24 05:43 10/03/24 05:45 10/03/24 06:33 Temperature 97.1 F L 97.1 F L Temperature Source Temporal Pulse Rate 74 74 Respiratory Rate 16 16 Respiratory Pattern Normal Blood Pressure 120/73 120/73 Blood Pressure Mean 88 Blood Pressure Source Monitor Blood Pressure Position Semi-Fowlers Blood Pressure Location Left Arm Pulse Ox 100 100 Oxygen Delivery Method Room Air Room Air Weight Weight: 124 lb Body Mass Index (BMI) 21.9 Physical Exam Const alert, oriented x3, no apparent distress and healthy appearing General Appearance: cooperative GI normal to inspection, nondistended, normoactive bowel sounds, soft to palpation,non-tender and non-distended Percussion: normal to percussion Rectal Exam: deferred Assessment & Plan Assessment/Plan (1) Encounter for screening for malignant neoplasm of colon: PLAN: She was explained alternatives, risk and benefits include understanding bleeding, infection, sepsis, perforation, need for surgery . She will havean ASA of 3. 10/03/24 0700 <Electronically signed by Vinnie Enrique DO> Cosigner Signature (if applicable): CC: Dr. Jolie Parsons MD; Vinnie Enrique DO~ Signed [facility] Work Phone: Reason for referral (narrative)* Diagnostic Procedure Only (Routine) - Pending Review Specialty Diagnoses / Procedures Referred By Charlie gama Referred To Contact XR IMAGING Diagnoses Pain in left hip Procedures XR HIP GENERAL 3V PELV/AP/LAT LEFT RADEX HIP UNILATERAL WITH PELVIS 2-3 VIEWS Jossue Gutierrez MD [address] [place] [address] Xr Imaging Referral ID Status Reason Start Date Expiration Date Visits Requested Visits Authorized [id number] Pending Review Auto-Generat ed Referral 11/04/2021 12/04/2022 1 1 [facility] for referral (narrative)* Diagnostic Procedure Only (Routine) - Closed Specialty Diagnoses / Procedures Referred By Charlie gama Referred To Contact XR IMAGING Diagnoses Pain in left hip Procedures XR HIP GENERAL 3V PELV/AP/LAT LEFT RADEX HIP UNILATERAL WITH PELVIS 2-3 VIEWS Jossue Gutierrez MD [address] [place] [address] Xr Imaging Referral ID Status Reason Start Date Expiration Date V isits Requested Visits Authorized [id number] Closed Auto-Generate d Referral 11/04/2021 12/04/2022 1 1 [facility] for referral (narrative)* Diagnostic Procedure Only (Routine) - Pending Review Specialty Diagnoses / Procedures Referred By Charlie gama Referred To Contact BR IMAGING Diagnoses Encounter for screening mammogram for breast cancer Procedures ROSCOE SCREENING SCREENING MAMMOGRAPHY BI 2-VIEW BREAST INC Mitchell Lay MD [address] [place] [address] [facility] [address] [place] [address] Referral ID Status Reason Start Date Expiration Date Visits Requested Visits Authorized [id number] Pending Review Auto-Generat ed Referral 08/07/2023 1 1 [facility] for referral (narrative)* Diagnostic Procedure Only (Routine) - Authorized Specialty Diagnoses / Procedures Referred By Contac t Referred To Contact BR IMAGING Diagnoses Encounter for gynecological examination (general) (routine) without abnormal findings Encounter for screening mammogram for breast cancer Procedures ROSCOE SCREENING SCREENING MAMMOGRAPHY BI 2-VIEW BREAST INC Jolie España APRN.CNP [address] [place] [address] [facility] [address] [place] [address] Referral ID Status Reason Start Date Expiration Date Visits Requested Visits Authorized [id number] Authorized Auto-Generat ed Referral 08/05/2022 09/04/2023 1 1 [facility] for referral (narrative)* Diagnostic Procedure Only (Routine) - Closed Specialty Diagnoses / Procedures Referred By Contac t Referred To Contact BR IMAGING Diagnoses Encounter for screening mammogram for breast cancer Procedures ROSCOE SCREENING SCREENING MAMMOGRAPHY BI 2-VIEW BREAST INC Mitchell Lay MD [address] [place] [address] [facility] [address] [place] [address] Referral ID Status Reason Start Date Expiration Date V isits Requested Visits Authorized [id number] Closed Auto-Generate d Referral 07/30/2021 08/29/2022 1 1 [facility] for referral (narrative)* Diagnostic Procedure Only (Routine) - Pending Review Specialty Diagnoses / Procedures Referred By Contac t Referred To Contact BR IMAGING Diagnoses Encounter for screening mammogram for breast cancer Procedures ROSCOE SCREENING SCREENING MAMMOGRAPHY BI 2-VIEW BREAST INC Mitchell Lay MD [address] [place] [address] [facility] [address] [place] [address] Referral ID Status Reason Start Date Expiration Date Visits Requested Visits Authorized [id number] Pending Review Auto-Generat ed Referral 09/08/2023 10/07/2024 1 1 [facility] for referral (narrative)No reason for referral information availableWMcCullough-[facility] Work Phone: Reason for visit Narrative* Diagnostic Procedure Only (Routine) - Closed Specialty Diagnoses / Procedures Referred By Contac t Referred To Contact XR IMAGING Diagnoses Pain in left hip Procedures XR HIP GENERAL 3V PELV/AP/LAT LEFT RADEX HIP UNILATERAL WITH PELVIS 2-3 VIEWS Jossue Gutierrez MD [address] [place] [address] Xr Imaging Referral ID Status Reason Start Date Expiration Date V isits Requested Visits Authorized [id number] Closed Auto-Generate d Referral 11/04/2021 12/04/2022 1 1 [facility] for visit Narrative* Diagnostic Procedure Only (Routine) - Closed Specialty Diagnoses / Procedures Referred By Contrussell t Referred To Contact BR IMAGING Diagnoses Encounter for screening mammogram for breast cancer Procedures ROSCOE SCREENING SCREENING MAMMOGRAPHY BI 2-VIEW BREAST INC Mitchell Lay MD [address] [place] [address] [facility] [address] [place] [address] Referral ID Status Reason Start Date Expiration Date V isits Requested Visits Authorized [id number] Closed Auto-Generate d Referral 07/30/2021 08/29/2022 1 1 [facility] Summary Purpose Family History No Family History Records Found Relationship Condition Age at Onset Recorded Date/T rishi Not Specified Malignant neoplasm of skin Unknown Osteoporosis Unknown Anxiety Unknown Arthritis Unknown Depression Unknown Disorder of thyroid Unknown Asthma Unknown Advance Directives No Advanced Directives Records FoundDocuments on File Type Date Recorded 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 Yes September 29, 2024 8:28am Name of Medical Power of Blackjack Pit Boss SPOUSE September 29, 2024 8:28am Reason for Referral Status Reason Specialty Diagnoses / Procedures Referre d By Contact Referred To Contact Closed Radiology Diagnoses Encounter for screening mammogram for malignant neoplasm of breast Procedures ROSCOE DIGITAL SCREEN W OR WO CAD BILATERAL Erik Batsita MD [address] [place] [address] Specialty Diagnoses / Procedures Referred By Contac t Referred To Contact Orthopedics Diagnoses Left hip pain Procedures CONSULT TO ORTHOPAEDICS OFFICE/OUTPATIENT [facility] 60-74 MINUTES Mitchell An MD [address] [place] [address] Referral ID Status Reason Start Date Expiration Date Visits Requested Visits Authorized [id number] Pending Review PCP Requested Referral 10/27/2021 10/27/2022 1 1 Specialty Diagnoses / Procedures Referred By Contac t Referred To Contact US IMAGING Diagnoses Left hip pain Procedures US HIP LT US COMPL JOINT R-T W/IMAGE DOCUMENTATION Mitchell An MD [address] [place] [address] Us Imaging Referral ID Status Reason Start Date Expiration Date Visits Requested Visits Authorized [id number] Authorized Auto-Generat ed Referral 10/27/2021 11/26/2022 1 1 Assessments Diagnosis Encounter for screening mammogram for malignant neoplasm of breast Other screening mammogram Medications Administered Section Inactive Administered Medications - up to 3 most recent administrations Medication Order MAR Action Action Date Dose Rate Site zoledronic acid 5 mg PREMIX piggyback (RECLAST) 5 mg, INTRAVENOUS, at 400 mL/hr, Administer over 15 Minutes, ONCE, 1 dose, On Sylvia 04/30/22 at 1000, Hazardous Potential Reproductive Risk Drug: Use appropriate PPE. New Bag/Syringe/Bottle 04/30/2022 9:35 AM EDT 5 mg 400 mL/hr Inactive Administered Medications - up to 3 most recent administrations Medication Order MAR Action Action Date Dose Rate Site zoledronic acid 5 mg PREMIX piggyback (RECLAST) 5 mg, INTRAVENOUS, at 400 mL/hr, Administer over 15 Minutes, ONCE, 1 dose, On Wed06/25/23 at 1430, Hazardous Potential Reproductive Risk Drug: Use appropriate PPE. New Bag/Syringe/Bottle 06/25/2023 2:30 PM EST 5 mg 400 mL/hr Chief Complaint and Reason for Visit Chief Complaint Admit Date Amb Documentation June 27, 2024 8:23am SCREENING July 06, 2024 8:25am BOTH HIPS- PAIN September 15, 2024 3:09 pm Reason for Visit Admit Date Encounter for screening for malignant ne oplasm of colon October 03, 2024 5:20am Additional Source Comments INFORMATION SOURCE (unrecogn ized section and content) DATE CREATED AUTHOR 12/31/2017 [facility] DATE CREATED AUTHOR AUTHOR'S ORGANIZ ATION 03/16/2019 [facility] DATE CREATED AUTHOR AUTHOR'S ORGANIZ ATION 03/20/2019 [facility] DATE CREATED AUTHOR AUTHOR'S ORGANIZ ATION 10/11/2024 [facility] DATE CREATED AUTHOR AUTHOR'S ORGANIZ ATION 01/23/2025 [facility] Source Comments (unrecognize d section and content) In the event this informatio n is protected by the Federal Confidentiality of Alcohol and Drug Abuse Patient Records regulations: The Federal rules restrict any use of the information to criminally investigate or prosecute any alcohol or drug abuse patient.[facility] the event this information is protected by the Federal Confidentiality of Alcohol and Drug Abuse Patient Records regulations: The Federal rules restrict any use of the information to criminally investigate or prosecute any alcohol or drug abuse patient.[facility] Center[facility] the event this information is protected by the Federal Confidentiality of Alcohol and Drug Abuse Patient Records regulations: The Federal rules restrict any use of the information to criminally investigate or prosecute any alcohol or drug abuse patient.[facility] CenterIn the event this information is protected by the Federal Confidentiality of Alcohol and Drug Abuse Patient Records regulations: The Federal rules restrict any use of the information to criminally investigate or prosecute any alcohol or drug abuse patient.[facility] CenterIn the event this information is protected by the Federal Confidentiality of Alcohol and Drug Abuse Patient Records regulations: The Federal rules restrict any use of the information to criminally investigate or prosecute any alcohol or drug abuse patient.[facility] CenterIn the event this information is protected by the Federal Confidentiality of Alcohol and Drug Abuse Patient Records regulations: The Federal rules restrict any use of the information to criminally investigate or prosecute any alcohol or drug abuse patient.[facility] CenterIn the event this information is protected by the Federal Confidentiality of Alcohol and Drug Abuse Patient Records regulations: The Federal rules restrict any use of the information to criminally investigate or prosecute any alcohol or drug abuse patient.[facility] CenterIn the event this information is protected by the Federal Confidentiality of Alcohol and Drug Abuse Patient Records regulations: The Federal rules restrict any use of the information to criminally investigate or prosecute any alcohol or drug abuse patient.[facility] CenterIn the event this information is protected by the Federal Confidentiality of Alcohol and Drug Abuse Patient Records regulations: The Federal rules restrict any use of the information to criminally investigate or prosecute any alcohol or drug abuse patient.[facility] CenterIn the event this information is protected by the Federal Confidentiality of Alcohol and Drug Abuse Patient Records regulations: The Federal rules restrict any use of the information to criminally investigate or prosecute any alcohol or drug abuse patient.[facility] CenterIn the event this information is protected by the Federal Confidentiality of Alcohol and Drug Abuse Patient Records regulations: The Federal rules restrict any use of the information to criminally investigate or prosecute any alcohol or drug abuse patient.[facility] CenterIn the event this information is protected by the Federal Confidentiality of Alcohol and Drug Abuse Patient Records regulations: The Federal rules restrict any use of the information to criminally investigate or prosecute any alcohol or drug abuse patient.[facility] CenterIn the event this information is protected by the Federal Confidentiality of Alcohol and Drug Abuse Patient Records regulations: The Federal rules restrict any use of the information to criminally investigate or prosecute any alcohol or drug abuse patient.[facility] CenterIn the event this information is protected by the Federal Confidentiality of Alcohol and Drug Abuse Patient Records regulations: The Federal rules restrict any use of the information to criminally investigate or prosecute any alcohol or drug abuse patient.[facility] CenterIn the event this information is protected by the Federal Confidentiality of Alcohol and Drug Abuse Patient Records regulations: The Federal rules restrict any use of the information to criminally investigate or prosecute any alcohol or drug abuse patient.[facility] CenterIn the event this information is protected by the Federal Confidentiality of Alcohol and Drug Abuse Patient Records regulations: The Federal rules restrict any use of the information to criminally investigate or prosecute any alcohol or drug abuse patient.[facility] CenterIn the event this information is protected by the Federal Confidentiality of Alcohol and Drug Abuse Patient Records regulations: The Federal rules restrict any use of the information to criminally investigate or prosecute any alcohol or drug abuse patient.[facility] CenterIn the event this information is protected by the Federal Confidentiality of Alcohol and Drug Abuse Patient Records regulations: The Federal rules restrict any use of the information to criminally investigate or prosecute any alcohol or drug abuse patient.[facility] CenterIn the event this information is protected by the Federal Confidentiality of Alcohol and Drug Abuse Patient Records regulations: The Federal rules restrict any use of the information to criminally investigate or prosecute any alcohol or drug abuse patient.[facility] CenterIn the event this information is protected by the Federal Confidentiality of Alcohol and Drug Abuse Patient Records regulations: The Federal rules restrict any use of the information to criminally investigate or prosecute any alcohol or drug abuse patient.[facility] CenterIn the event this information is protected by the Federal Confidentiality of Alcohol and Drug Abuse Patient Records regulations: The Federal rules restrict any use of the information to criminally investigate or prosecute any alcohol or drug abuse patient.[facility] CenterIn the event this information is protected by the Federal Confidentiality of Alcohol and Drug Abuse Patient Records regulations: The Federal rules restrict any use of the information to criminally investigate or prosecute any alcohol or drug abuse patient.[facility] CenterIn the event this information is protected by the Federal Confidentiality of Alcohol and Drug Abuse Patient Records regulations: The Federal rules restrict any use of the information to criminally investigate or prosecute any alcohol or drug abuse patient.[facility] CenterIn the event this information is protected by the Federal Confidentiality of Alcohol and Drug Abuse Patient Records regulations: The Federal rules restrict any use of the information to criminally investigate or prosecute any alcohol or drug abuse patient.[facility] CenterIn the event this information is protected by the Federal Confidentiality of Alcohol and Drug Abuse Patient Records regulations: The Federal rules restrict any use of the information to criminally investigate or prosecute any alcohol or drug abuse patient.[facility] CenterIn the event this information is protected by the Federal Confidentiality of Alcohol and Drug Abuse Patient Records regulations: The Federal rules restrict any use of the information to criminally investigate or prosecute any alcohol or drug abuse patient.[facility] CenterIn the event this information is protected by the Federal Confidentiality of Alcohol and Drug Abuse Patient Records regulations: The Federal rules restrict any use of the information to criminally investigate or prosecute any alcohol or drug abuse patient.[facility] CenterIn the event this information is protected by the Federal Confidentiality of Alcohol and Drug Abuse Patient Records regulations: The Federal rules restrict any use of the information to criminally investigate or prosecute any alcohol or drug abuse patient.[facility] CenterIn the event this information is protected by the Federal Confidentiality of Alcohol and Drug Abuse Patient Records regulations: The Federal rules restrict any use of the information to criminally investigate or prosecute any alcohol or drug abuse patient.[facility] Reason for Visit (unrecogniz ed section and content) Reason Comments reclast Specialty Diagnoses / Procedures Referred By Contac t Referred To Contact Diagnoses Age-related osteoporosis without current pathological fracture Procedures INJECTION, ZOLEDRONIC ACID, 1 MG Mitchell An MD [address] [place] [address] [facility] [address] [place] [address] Referral ID Status Reason Start Date Expiration Date V isits Requested Visits Authorized [id number] Authorized 04/16/2022 05/24/2024 2 2 Reason Comments Physical Therapy Specialty Diagnoses / Procedures Referred By Contac t Referred To Contact [facility] Diagnoses Intervertebral disc disorder with radiculopathy of lumbar region Procedures CONSULT TO PHYSICAL THERAPY PHYSICAL THERAPY EVALUATION HIGH COMPLEX 45 MINS Jossue Gutierrez MD [address] [place] [address] [facility] [place] [address] [place] [address] Referral ID Status Reason Start Date Expiration Date Visits Requested Visits Authorized [id number] Authorized Auto-Generat ed Referral 11/10/2021 07/11/2022 5 5 Status Reason Specialty Diagnoses / Procedures Referre d By Contact Referred To Contact Closed Radiology Diagnoses Encounter for screening mammogram for malignant neoplasm of breast Procedures ROSCOE DIGITAL SCREEN W OR WO CAD BILATERAL Erik Batista MD [address] [place] [address] Reason Comments c/o leg and chest pain Reason Comments Appointment Reason Comments PT Eval Reason Comments Physical Reason Comments Orders Reason Comments Lab Order Request Reason Comments Non-Chemotherapy Treatment Referral ID Status Reason Start Date Expiration Date V isits Requested Visits Authorized [id number] Waiting for Response 04/16/2022 07/15/2022 1 1 Reason Comments Cough headache, fatigue x 1 week, exposure to strep Reason Comments [facility] Specialty Diagnoses / Procedures Referred By Charlie t Referred To Contact Gynecology Diagnoses Pap smear, as part of routine gynecological examination Procedures CONSULT TO GYNECOLOGY OFFICE/OUTPATIENT NEW HIGH MDM 60-74 MINUTES Older, GISELL Cao.CHRISTIANO [address] [place] [address] Referral ID Status Reason Start Date Expiration Date Visits Requested Visits Authorized [id number] Pending Review PCP Requested Referral Auto-Generate d Referral 07/16/2022 07/16/2023 1 1 Reason Onset Date Comments Outpatient Colonoscopy 12/19/2024 Patient i s overdue for colorectal cancer screening since 10/10/2023. Please schedule open access colonoscopy. Care Teams (unrecognized sec tion and content) Watch Electrician Relationship Specialty Start Date End Date Mitchell An MD [address] [place] [address] PCP - General Internal Medicine 10/18/20 Watch Electrician Relationship Specialty Start Date End Date Mitchell An MD [address] [place] [address] PCP - General Internal Medicine 10/18/20 Watch Electrician Relationship Specialty Start Date End Date Mitchell An MD [address] [place] [address] PCP - General Internal Medicine 10/18/20 Watch Electrician Relationship Specialty Start Date End Date Mitchell An MD [address] [place] [address] PCP - General Internal Medicine 10/18/20 Watch Electrician Relationship Specialty Start Date End Date Mitchell An MD [address] [place] [address] PCP - General Internal Medicine 10/18/20 Watch Electrician Relationship Specialty Start Date End Date Mitchell An MD [address] [place] [address] PCP - General Internal Medicine 10/18/20 Watch Electrician Relationship Specialty Start Date End Date Mitchell An MD [address] [place] [address] PCP - General Internal Medicine 10/18/20 Watch Electrician Relationship Specialty Start Date End Date Mitchell An MD [address] [place] [address] PCP - General Internal Medicine 10/18/20 Watch Electrician Relationship Specialty Start Date End Date Mitchell An MD [address] [place] [address] PCP - General Internal Medicine 10/18/20 Watch Electrician Relationship Specialty Start Date End Date Mitchell An MD [address] [place] [address] PCP - General Internal Medicine 10/18/20 Watch Electrician Relationship Specialty Start Date End Date Mitchell An MD [address] [place] [address] PCP - General Internal Medicine 10/18/20 Watch Electrician Relationship Specialty Start Date End Date Mitchell An MD [address] [place] [address] PCP - General Internal Medicine 10/18/20 Watch Electrician Relationship Specialty Start Date End Date Mitchell An MD [address] [place] [address] PCP - General Internal Medicine 10/18/20 Watch Electrician Relationship Specialty Start Date End Date Mitchell An MD [address] [place] [address] PCP - General Internal Medicine 10/18/20 Watch Electrician Relationship Specialty Start Date End Date Mitchell An MD [address] [place] [address] PCP - General Internal Medicine 10/18/20 Watch Electrician Relationship Specialty Start Date End Date Mitchell An MD [address] [place] [address] PCP - General Internal Medicine 10/18/20 Watch Electrician Relationship Specialty Start Date End Date Mitchell An MD [address] [place] [address] PCP - General Internal Medicine 10/18/20 Watch Electrician Relationship Specialty Start Date End Date Mitchell An MD [address] [place] [address] PCP - General Internal Medicine 10/18/20 Watch Electrician Relationship Specialty Start Date End Date Mitchell An MD [address] [place] [address] PCP - General Internal Medicine 10/18/20 Keesha Smith PA-C [address] [place] [address] [facility] 06/18/24 Kiley Rees APRN.CNP [address] [place] [address] [facility] 06/18/24 Maria Loving PA-C [address] [place] [address] [facility] 06/18/24 Team Status: Active Member Role Status Dates Dr. Jolie Parsons MD Primary Care Provider Active Team Status: Active Member Role Status Dates Dr. Jolie Parsons MD Primary Care Provider Active Start: June 27, 2024 Amelia Vizcaino Attending Provider Active Start: Gabriel 2023 Team Status: Inactive Member Role Status Dates Dr. Jolie Parsons MD Primary Care Provider Active Start: July 06, 2024 End: July 06, 2024 Jessica Appiah ROLLER MACHINE OPERATOR, ROLLER MACHINE OPERATOR-C Attending Provider Active Start: July 06, 2024 End: July 06, 2024 Jessica Appiah ROLLER MACHINE OPERATOR, ROLLER MACHINE OPERATOR-C Referring Provider Active Start: July 06, 2024 End: July 06, 2024 Team Status: Inactive Member Role Status Dates Dr. Jolie Parsons MD Primary Care Provider Active Start: September 15, 2024 End: September 15, 2024 Dr. Julius Monsalve MD Attending Provider Active Start: September 15, 2024 End: September 15, 2024 Dr. Julius Monsalve MD Referring Provider Active Start: September 15, 2024 End: September 15, 2024 Team Status: Inactive Member Role Status Dates Dr. Jolie Parsons MD Primary Care Provider Active Start: October 03, 2024 End: October 03, 2024 Dr. Jolie Parsons MD Referring Provider Active Start: October 03, 2024 End: October 03, 2024 Dr. Vinnie Enrique DO Attending Provider Active Start: October 03, 2024 End: October 03, 2024 Team Status: Active Member Role Status Dates Dr. Jolie Parsons MD Primary Care Provider Active Start: October 03, 2024 Dr. Jolie Parsons MD Referring Provider Active Start: October 03, 2024 Dr. Vinnie Enrique DO Attending Provider Active Start: October 03, 2024 Dr. Vinnie Enrique DO Other Provider Active St art: October 03, 2024 Watch Electrician Relationship Specialty Start Date End Date Mitchell An MD [address] [place] [address] PCP - General Internal Medicine 10/18/20 12/31/24 Jolie Parsons [address] [place] [address] PCP - General Family Medicine 01/01/25 Kiley Rees APRN.[facility] [address] [place] [address] Street [facility] 06/18/24 Goals (unrecognized section and content) Goals may be documented in a n alternate section FOR RECORDS PERTAINING TO PATIENTS WHO ARE OR HAVE BEEN ENROLLED IN A CHEMICAL DEPENDENCY/SUBSTANCEABUSE PROGRAM, SOME INFORMATION MAY BE OMITTED. This clinical summary was aggregated from multiple sources. Caution should be exercised in using it in the provision of clinical care. This summary normalizes information from multiple sources, and as a consequence, information in this document may materially change the coding, format and clinical context of patient data. In addition, data may be omitted in some cases. CLINICAL DECISIONS SHOULD BE BASED ON THE PRIMARY CLINICAL RECORDS. [employer] provides no warranty or guarantee of the accuracy or completeness of information in this document.
[2025-05-07 10:38] LABS: Cholesterol 212 mg/dL (<=200); Low Density Lipoprotein Calc. 135 mg/dL; Triglycerides 91 mg/dL; Very Low Density Lipoprotein 18 mg/dL (5-40); cholesterol:hdl ratio screen 3.49
== END | disposition home or self-care (01) ==
LOC: MTLAB 07:01
PROVIDERS: PCP Family Medicine
DX: Z00.00 Encounter for general adult medical examination without abnormal findings (principal)
CPT/HCPCS: 36415; 80061

== ENCOUNTER → 2025-05-09 | Outpatient (CLI) | payer OTHER, SELFPAY | END | disposition home or self-care (01) | LOC: MTLAB 14:22 | PROVIDERS: PCP Family Medicine; Referring Provider Family Medicine; Visit Provider Family Medicine | DX: Z13.1 Encounter for screening for diabetes mellitus (principal) | CPT/HCPCS: 36415; 83036 ==

== ENCOUNTER → 2025-07-10 | Outpatient (CLI) | payer OTHER, SELFPAY ==
--- NOTE | 2025-07-10 16:45 | BI_ITS ---
EXAM: SCRN MAMM (CAD)W/YUE BILAT DATE: 07/10/2025 CLINICAL HISTORY: F, Age 65 y/o , YEARLY SCREENING TECHNIQUE: Procedure Code: [id number] Modality: MG Procedure: SCRN MAMM (CAD)W/YUE BILAT COMPARISON: Prior exam(s) were compared FINDINGS: TISSUE DENSITY: The breasts are heterogeneously dense, which may obscure small masses. Bilateral Breast Mammographic Findings: No significant masses, calcifications or other abnormalities are identified. Bilateral breast silicone implants are noted. BI/SCRN MAMM (CAD)W/YUE BILAT IMPRESSION: No mammographic evidence of malignancy. OVERALL FINAL ASSESSMENT BI-RADS 2: BENIGN RECOMMENDATION: Routine annual follow-up in 1 Year Additional Recommendation none A letter with findings and recommendations will be mailed to the patient. Reading Location: [id number]
--- OUTSIDE RECORDS SUMMARY | 2025-07-11 08:56 | XMS RPT_ITS | CCD ---
Author Organization [facility] CliniSyid Care Team Providers Care Certified Fraud Examiner Name Role Phone MEJIA PIERRE Unavailable Unavailable MEJIA PIERRE Unavailable Unavailable ERIK LUNA Referring Unavailable MEJIA PIERRE Primary Care Unavailable Mejia Pierre Primary Care Provider [phone] Mejia Pierre Primary Care Provider Mitchell An MD Primary Care Provider Mitchell An MD Primary Care Provider Mitchell An MD Primary Care Provider Mitchell An MD Primary Care Provider [phone] Keesha Smith PA-C Unavailable Older COLLISION REPAIR TECHNICIAN.CHRISTIANO, Kiley Unavailable Maria Loving PA-C Unavailable Dr. Jolie Parsons MD Primary Care Provider Amelia Vizcaino Attending Provider Unavailable [place] INFORMATION SYSTEMS AUDITOR-CJessica Attending Provider Bijal INFORMATION SYSTEMS AUDITOR-CJessica Referring Provider Dr. Julius Monsalve MD Attending Provider Dr. Julius Monsalve MD Referring Provider Dr. Jolie Parsons MD Referring Provider Dr. Vinnie Enrique DO Attending Provider Dr. Vinnie Enrique DO Other Provider Mitchell An MD Primary Care Provider Jolie Parsons Primary Care Provider Jessica Appiah NP Referring Unavailable [place] INFORMATION SYSTEMS AUDITOR, Jessica Attending Unavailable Jolliff, Jolie S Primary Care Unavailable Jolliff, Jolie S Primary Care Unavailable Bello, Julius Referring Unavailable Bello, Julius Attending Unavailable Chiquis, Chalon Primary Care Unavailable [place] INFORMATION SYSTEMS AUDITOR, Dhaval Referring Unavailable [place] INFORMATION SYSTEMS AUDITOR, Dhaval Attending Unavailable Chiquis, Tiffanie Attending Unavailable Chiquis, Chalon Primary Care Unavailable Chiquis, Dipakon Referring Unavailable Amelia Vizcaino Attending Unavailable Jolliff, Jolie S Primary Care Unavailable Jolliff, Jolie S Primary Care Unavailable Friend, Vinnie Attending Unavailable Friend, Vinnie Consulting Unavailable Jolliff, Jolie S Referring Unavailable Friend, Vinnie Attending Unavailable Jolliff, Jolie S Referring Unavailable Jolliff, Jolie S Primary Care Unavailable Allergies Allergy Classification Reported Allergen(s) Allergy Type Date of Onset Reaction(s) Facility (13 sources) Azithromycin Drug Allergy 7 [place], [place] (20 sources) Alendronate Drug Allergy 1 Swelling, GI Upset [facility] Work Phone: (14 sources) Amoxicillin Drug Allergy 3 Rash [facility] (12 sources) Seasonal allergy Propensity to adverse reactions 3 Cough [facility] Work Phone: (1 source) Amoxicillin Drug Allergy 5 [facility] Repository Medications Current Medications Medication Drug Class(es) [...] Comment on above: Take 1 capsule by [facility] twice daily for 10 days. ascorbic acid 300 mg / biotin 0.3 mg / calcium pantothenate 10 mg / folic acid 0.04 mg / niacinamide 50 mg / pyridoxine hydrochloride 5 mg / riboflavin 10.2 mg / thiamine mononitrate 15 mg oral tablet (1 source) Vitamin C B Hhkkjyo-H-Ulxmt Acid (VITABEE/C) TABS Take by mouth. 0 [...] piggyback (RECLAST) Start: 08-19-2020 End: 06-27-2024 Zoledronic Ynou-Ignxfcvi-Sbj er 5 mg/100 mL piggyback Discontinued 1 [...] Translations: [Pain in left hip] Episodic Other screening for suspected conditions (not mental disorders or infectious disease) (18 sources) Patient encounter status; Translations: [Encounter for screening for lipoid disorders] Onset: 08-03-2024 Episodic Other upper respiratory infections (2 sources) [...] epicondylitis of elbow] Onset: 01-31-2015 01-31-2015 Episodic Other non-traumatic joint disorders (1 source) Pain in right hip; Translations: [Pain in right hip] Onset: 09-26-2024 Episodic Residual codes; unclassified (20 sources) History [...] Test Name Value Interpretation Reference Range Facility Hemoglobin A1con 05-09-2025 HbA1c (Bld) [Mass fraction] 5.7 % Normal <=5.6 [facility] Comment on above: Result Comment: Norm al < 5.7 % Prediabetic 5.7 - 6.4 % Diabetic >or= 6.5 % Please note range changes. Performed By: #### L 501.9985 #### [facility] Laboratory [address] [place], [place], [id number] Lipid Profileon 05-07-2025 CHOL:HDL 3.49 Normal [facility] Comment on above: Order Comment: Order Date: 05/02/25 Order Info: [id number] - LIPID Performed By: #### L 500.4100 #### [facility] [address] [place], [place], [address] Cholesterol [Mass/Vol] 212 mg/dL High <=200 [facility] Comment on above: Order Comment: Order Date: 05/02/25 Order Info: [id number] - LIPID Result Comment: Chol esterol level, Desirable <200 mg/dL Borderline high cholesterol 200-239 mg/dL High cholesterol >=240 mg/dL Recommendations of the NCEP Adult Treatment Panel for the following risk-cutoff thresholds for the [place] population. Performed By: #### L 500.4100 #### [facility] [address] [place], [place], [id number] Cholesterol in HDL [Mass/Vol] 61 mg/dL Normal [facility] Comment on above: Order Comment: Order Date: 05/02/25 Order Info: [id number] - LIPID Result Comment: Nyla onal Cholesterol Education Program (NCEP) guidelines: <40 mg/dL: Low HDL-cholesterol (major risk factor for CHD) >= 60 mg/dL: High HDL-cholesterol (negative risk factor for CHD) HDL-cholesterol is affected by a number of factors, e.g. smoking, exercise, hormones, sex and age. Performed By: #### L 500.4100 #### [facility] [address] [place], [place], [id number] Cholesterol in LDL [Mass/Vol] 135 mg/dL Normal [facility] Comment on above: Order Comment: Order Date: 05/02/25 Order Info: [id number] - LIPID Result Comment: Bord bumtnd=919-630 mg/dL Higher Obnu=149 mg/dL or greater Angulo Equation 2020 for LDL-C Performed By: #### L 500.4100 #### [facility] [address] [place], [place], [address] Cholesterol in VLDL [Mass/Vol] 18 mg/dL Normal 5-40 [facility] Comment on above: Order Comment: Order Date: 05/02/25 Order Info: [id number] - LIPID Performed By: #### L 500.4100 #### [facility] [address] [place], [address] Triglyceride [Mass/Vol] 91 mg/dL Normal [facility] Comment on above: Order Comment: Order Date: 05/02/25 Order Info: [id number] - LIPID Result Comment: The drugs N-Acetylcysteine and Metamizole may falsely depress this assay. Normal range: <150 mg/dL Borderline High: 150-199 mg/dL High: 200-499 mg/dL Very High: >500 mg/dL Performed By: #### L 500.4100 #### [facility] [address] [place], [place], [id number] Colonoscopy Reporton 025 Colonoscopy Report [facility] Medical Records Department [address] [place] [address] Colonoscopy Report MR#: [id number] Acct: [id number] Name: JOLIE HEALY Rep #: [id number] : 1960 64 From: Vinnie Enrique DO PCP: Dr. Jolie Parsons MD Status:[facility] Patient Name: Jolie Healy Procedure Date: 10/03/2024 6:11 AM Date of : 1960 Age: 64 Procedure: Colonoscopy Indications: Screening for colorectal malignant neoplasm Providers: Vinnie Enrique DO Referring MD: Jolie Parsons Medicines: Monitored [...] criteria for high risk CPT copyright 2021 [employer]. All rights reserved. The codes documented in this report are preliminary and upon exhauster engineer review may be revised to meet current compliance requirements. Vinnie Enrique DO 10/03/2024 7:28:16 AM This report has been signed electronically. Number of Addenda: 0 Note Initiated On: 10/03/2024 6:11 AM 10/03/24 0729 Date Vinnie Enrique DO Cosigner Signature: Date (if indicated) CC: Dr. Jolie Parsons MD; Vinnie Enrique DO Date Dictated: 10/03/24 0611 Date Transcribed: Lead Painter: JOSE MANUEL Signed Normal [facility] MR/POSTOP.Brandi 10-03-2024 MR/POSTOP.[facility] Medical Records Department [address] [place] [address] Anesthesia Postop Eval I 10/03/24727 MR#: [id number] Acct: [id number] Name: JOLIE HEALY Rep #: [id number] : 1960 64 From: Davey Delarosa PCP: Dr. Jolie Parsons MD Status:[facility] Y Race: C Location: [place] [address] Anesthesia: Postop Eval I Current Vital Signs [...] completed: Yes 10/03/24727 Date Davey Gastelum Signature: Date CC: Signed Normal [facility] MR/UGFORWAZ3xr 10-03-2024 [facility] Medical Records Department [address] [place] [address] Anesthesia Postop Eval II 10/03/2454 MR#: [id number] Acct: [id number] Name: JOLIE HEALY Rep #: [id number] : 1960 64 From: Franco Jarrett MD PCP: Dr. Jolie Parsons MD Status:[facility] Y Race: C Location: [...] Signed Normal [facility] Hips B/L min 2 views w/ Pelv juma 09-15-2024 Hips B/L min 2 views w/ Pelvis [facility] Imaging Services [address] [place] [id number] Hips B/L min 2 views w/ Pelvis MR#: [id number] Acct: [id number] Name: JOLIE HEALY Rep #: [id number] : 1960 F 64 From: Chester fuentes MD PCP: Dr. Jolie Parsons MD Status: REG CLI Study: Hips B/L min 2 views w/ Pelvis Date of Exam: 0 09/15/24 Exam# [id number] Ordering Dr: Julius Monsalve MD PROCEDURE: Bilateral [...] No acute abnormality is seen. Reading Location: [id number] CC: Dr. Jolie Parsons MD; Dr. Julius Monsalve MD Lead Painter: Signed Normal [facility] SCRN MAMM (CAD)W/GARCIA BILATo n 07-06-2024 SCRN MAMM (CAD)W/GARCIA BILAT [facility] Imaging Services [address] [place] [address] SCRN MAMM (CAD)W/GARCIA BILAT MR#: [id number] Acct: [id number] Name: JOLIE HEALY Rep #: [id number] : 1960 F 64 From: Alex Villanueva MD PCP: Dr. Jolie Parsons MD Status: REG CLI Study: SCRN MAMM (CAD)W/GARCIA BILAT Date of Exam: 06/12 01/02 Exam# [id number] Ordering Dr: Jessica Appiah INFORMATION SYSTEMS AUDITOR INFORMATION SYSTEMS AUDITOR -C [id number] MAMMOGRAPHY - BILATERAL SCREENING 3-D TOMOSYNTHESIS REASON [...] CC: RIMMA Appiah; Dr. Jolie Parsons MD Lead Painter: Signed Normal [facility] DXA-AXIAL SKELETONon 023 [facility] CBC W Auto Differential pane l (Bld)on 03-30-2023 Basophils (Bld) [#/Vol] 0.07 10*3/uL <0.11 k/uL [facility] Basophils/100 WBC (Bld) 1.1 % [facility] Differential cell count method Nom (Bld) Auto [facility] Eosinophils (Bld) [#/Vol] 0.17 10*3/uL <0.46 k/uL [facility] Eosinophils/100 WBC (Bld) 2.6 % [facility] Erythrocyte distribution width (RBC) [Ratio] 12.8 % 11.5 - 15.0 % [facility] Hematocrit (Bld) [Volume fraction] 42.6 % 36.0 - 46.0 % [facility] Hemoglobin (Bld) [Mass/Vol] 13.8 g/dL 11.5 - 15.5 g/dL [facility] Immature granulocytes (Bld) [#/Vol] <0.10 k/uL [facility] Immature granulocytes/100 WBC (Bld) 0.2 % [facility] Lymphocytes (Bld) [#/Vol] 2.43 10*3/uL 1.00 - 4.00 k/uL [facility] Lymphocytes/100 WBC (Bld) 37.2 % [facility] MCH (RBC) [Entitic mass] 28.5 pg 26.0 - 34.0 pg [facility] MCHC (RBC) [Mass/Vol] 32.4 g/dL 30.5 - 36.0 g/dL [facility] MCV (RBC) [Entitic vol] 87.8 fL 80.0 - 100.0 fL [facility] Monocytes (Bld) [#/Vol] 0.58 10*3/uL <0.87 k/uL [facility] Monocytes/100 WBC (Bld) 8.9 % [facility] Neutrophils (Bld) [#/Vol] 3.27 10*3/uL 1.45 - 7.50 k/uL [facility] Neutrophils/100 WBC (Bld) 50.0 % [facility] Nucleated RBC (Bld) [#/Vol] <0.01 k/uL [facility] Nucleated RBC/100 WBC (Bld) [Ratio] 0.0 /100 WBC [facility] Platelet mean volume (Bld) [Entitic vol] 12.2 fL 9.0 - 12.7 fL [facility] Platelets (Bld) [#/Vol] 218 10*3/uL 150 - 400 k/uL [facility] RBC (Bld) [#/Vol] 4.85 10*6/uL 3.90 - 5.2 0 m/uL [facility] WBC (Bld) [#/Vol] 6.53 10*3/uL 3.70 - 11. 00 k/uL [facility] ROSCOE SCREENINGon 08-05-2022 [facility] STREP A MOLECULAR (POC)on Procedural Control Valid [facility] Strep A (POCT) Positive Abnormal Negative [facility] CBC W Auto Differential pane l (Bld)on 04-30-2022 Basophils (Bld) [#/Vol] 0.07 10*3/uL <0.11 k/uL [facility] Basophils/100 WBC (Bld) 0.7 % [facility] Differential cell count method Nom (Bld) Auto [facility] Eosinophils (Bld) [#/Vol] 0.12 10*3/uL <0.46 k/uL [facility] Eosinophils/100 WBC (Bld) 1.2 % [facility] Erythrocyte distribution width (RBC) [Ratio] 13.0 % 11.5 - 15.0 % [facility] Hematocrit (Bld) [Volume fraction] 42.3 % 36.0 - 46.0 % [facility] Hemoglobin (Bld) [Mass/Vol] 14.0 g/dL 11.5 - 15.5 g/dL [facility] Immature granulocytes (Bld) [#/Vol] 0.05 10*3/uL <0.10 k/uL [facility] Immature granulocytes/100 WBC (Bld) 0.5 % [facility] Lymphocytes (Bld) [#/Vol] 1.72 10*3/uL 1.00 - 4.00 k/uL [facility] Lymphocytes/100 WBC (Bld) 17.3 % [facility] MCH (RBC) [Entitic mass] 28.6 pg 26.0 - 34.0 pg [facility] MCHC (RBC) [Mass/Vol] 33.1 g/dL 30.5 - 36.0 g/dL [facility] MCV (RBC) [Entitic vol] 86.3 fL 80.0 - 100.0 fL [facility] Monocytes (Bld) [#/Vol] 0.67 10*3/uL <0.87 k/uL [facility] Monocytes/100 WBC (Bld) 6.7 % [facility] Neutrophils (Bld) [#/Vol] 7.34 10*3/uL 1.45 - 7.50 k/uL [facility] Neutrophils/100 WBC (Bld) 73.6 % [facility] Nucleated RBC (Bld) [#/Vol] <0.01 k/uL [facility] Nucleated RBC/100 WBC (Bld) [Ratio] 0.0 /100 WBC [facility] Platelet mean volume (Bld) [Entitic vol] 11.2 fL 9.0 - 12.7 fL [facility] Platelets (Bld) [#/Vol] 224 10*3/uL 150 - 400 k/uL [facility] RBC (Bld) [#/Vol] 4.90 10*6/uL 3.90 - 5.2 0 m/uL [facility] WBC (Bld) [#/Vol] 9.97 10*3/uL 3.70 - 11. 00 k/uL [facility] Comprehensive metabolic 2000 panelon 04-30-2022 Albumin [Mass/Vol] 4.4 g/dL 3.9 - 4.9 g/dL [facility] ALP [Catalytic activity/Vol] 49 U/L 34 - 123 U/L [facility] ALT [Catalytic activity/Vol] 9 U/L 7 - 38 U/L [facility] Anion gap [Moles/Vol] 9 mmol/L 9 - 18 mmol/L [facility] AST [Catalytic activity/Vol] 14 U/L 13 - 35 U/L [facility] Bilirubin [Mass/Vol] 0.2 mg/dL 0.2 - 1.3 mg/dL [facility] Calcium [Mass/Vol] 9.4 mg/dL 8.5 - 10. 2 mg/dL [facility] Chloride [Moles/Vol] 101 mmol/L 97 - 105 mmol/L [facility] CO2 [Moles/Vol] 25 mmol/L 22 - 30 mmol/L [facility] Creatinine [Mass/Vol] 0.81 mg/dL 0.58 - 0.96 mg/dL [facility] Estimated Glomerular Filtration Rate 83 mL/min/1.73m >=60 mL/min/1.73m [facility] Glucose [Mass/Vol] 107 mg/dL High 74 - 99 mg/dL [facility] Potassium [Moles/Vol] 4.0 mmol/L 3.7 - 5.1 mmol/L [facility] Protein [Mass/Vol] 6.8 g/dL 6.3 - 8.0 g/dL [facility] Sodium [Moles/Vol] 135 mmol/L Low 136 - 144 mmol/L [facility] Urea nitrogen [Mass/Vol] 10 mg/dL 7 - 21 mg/dL [facility] XR HIP GENERAL 3V PELV/AP/LA T LEFTon 11-10-2021 [facility] Comprehensive Metabolic Pane delicia 03-20-2019 Albumin [Mass/Vol] 4.3 g/dL Normal 3.5-4.6 [facility] Comment on above: Performed By: #### C MP #### [facility] [address] [place] [address] ALP [Catalytic activity/Vol] 56 U/L Normal 40-130 [facility] Comment on above: Performed By: #### C MP #### [facility] [address] [place] [address] ALT [Catalytic activity/Vol] 11 U/L Normal 0-33 [facility] Comment on above: Performed By: #### C MP #### [facility] [address] [place] [address] Anion gap [Moles/Vol] 11 mmol/L Normal 9-15 [facility] Comment on above: Performed By: #### C MP #### [facility] [address] [place] [address] AST [Catalytic activity/Vol] 17 U/L Normal 0-35 [facility] Comment on above: Performed By: #### C MP #### [facility] [address] [place] [address] Bilirubin [Mass/Vol] 0.5 mg/dL Normal 0.2-0.7 [facility] Comment on above: Performed By: #### C MP #### [facility] [address] [place] [address] Calcium [Mass/Vol] 9.4 mg/dL Normal 8.5-9.9 [facility] Comment on above: Performed By: #### C MP #### [facility] [address] [place] [address] Chloride [Moles/Vol] 104 mmol/L Normal 95-107 [facility] Comment on above: Performed By: #### C MP #### [facility] [address] [place] [address] CO2 [Moles/Vol] 26 mmol/L Normal 20-31 [facility] Comment on above: Performed By: #### C MP #### [facility] [address] [place] [address] Creatinine [Mass/Vol] 0.82 mg/dL Normal 0.50-0.90 [facility] Comment on above: Performed By: #### C MP #### [facility] [address] [place] [address] GFR/1.73 sq M predicted among blacks MDRD (S/P/Bld) [Vol rate/Area] mL/min/{1.73_m2} Normal >60 [facility] Comment on above: Result Comment: >60 mL/min/1.73m2 EGFR, calc. for ages 18 and older using the MDRD formula (not corrected for weight), is valid for stable renal function. Performed By: #### C MP #### [facility] [address] [place] [address] GFR/1.73 sq M.predicted MDRD (S/P/Bld) [Vol rate/Area] mL/min/{1.73_m2} Normal >60 [facility] Comment on above: Result Comment: >60 mL/min/1.73m2 EGFR, calc. for ages 18 and older using the MDRD formula (not corrected for weight), is valid for stable renal function. Performed By: #### C MP #### [facility] [address] [place] [address] Globulin (S) [Mass/Vol] 2.8 g/dL Normal 2.3-3.5 [facility] Comment on above: Performed By: #### C MP #### [facility] [address] [place] [address] Glucose [Mass/Vol] 79 mg/dL Normal 70-99 [facility] Comment on above: Performed By: #### C MP #### [facility] [address] [place] [address] Potassium [Moles/Vol] 4.3 mmol/L Normal 3.4-4.9 [facility] Comment on above: Performed By: #### C MP #### [facility] [address] [place] [address] Protein [Mass/Vol] 7.1 g/dL Normal 6.3-8.0 [facility] Comment on above: Performed By: #### C MP #### [facility] [address] [place] [address] Sodium [Moles/Vol] 141 mmol/L Normal 135-144 [facility] Comment on above: Performed By: #### C MP #### [facility] [address] [place] [address] Urea nitrogen [Mass/Vol] 13 mg/dL Normal 6-20 [facility] Comment on above: Performed By: #### C MP #### [facility] [address] [place] [address] VITAMIN Don 03-20-2019 VITAMIN D 58.4 ng/mL Normal 30.0-100.0 [facility] Comment on above: Result Comment: (30- 100 ng/mL) Optimum Level This assay accurately quantifies the sum of vitamin D3, 25-Hydroxy and vitamin D2, 25-Hyroxy. Performed By: #### V ITD #### [facility] [address] [place] [address] ROSCOE DIGITAL SCREEN W OR WO C [...] IS VERY IMPORTANT TO YOUR HEALTH. THE [employer] GUIDELINES RECOMMEND THAT WOMEN 40 YEARS OF AGE AND OLDER SHOULD HAVE A MAMMOGRAM EVERY YEAR. A REMINDER LETTER WILL BE SENT AT THE APPROPRIATE TIME. [facility] [place], [place], [place] Incoming Radiant Results From [email or web address] - 03/10/2019 4:12 PM EDT ROSCOE DIGITAL [...] IS VERY IMPORTANT TO YOUR HEALTH. THE [employer] GUIDELINES RECOMMEND THAT WOMEN 40 YEARS OF AGE AND OLDER SHOULD HAVE A MAMMOGRAM EVERY YEAR. A REMINDER LETTER WILL BE SENT AT THE APPROPRIATE TIME. [facility] [place] ROSCOE DIGITAL SCREEN W OR WO C [...] IS VERY IMPORTANT TO YOUR HEALTH. THE [employer] GUIDELINES RECOMMEND THAT WOMEN 40 YEARS OF AGE AND OLDER SHOULD HAVE A MAMMOGRAM EVERY YEAR. A REMINDER LETTER WILL BE SENT AT THE APPROPRIATE TIME. Interpreted by: Erik Luna MD Signed by: Erik Luna MD 03/10/19 Final result Normal [facility] US ABDOMEN LIMITEDon 018 US ABDOMEN LIMITED EXAMINATION: ULTRASO UND ABDOMEN LIMITEDCLINICAL HISTORY: R10.9 Left flank pain [id number]: NONE AVAILABLETECHNIQUE: Transabdominal sector perez-scale sonography. Only images of the left upper quadrant are submitted. Sonographic imaging was performed by a registered world history teacher and the images were submitted for interpretation.FINDINGS: [...] LEFT KIDNEY HAVE A NORMAL SONOGRAPHIC APPEARANCE.Interpreted by:ALEJANDRO Voigned by:Edward Giordano MD09/16/18Final result Normal [facility] Vital Signs Date Time Vital Sign Value Performing Clinician Claudioi morgan 10-03-2024 07:39-0400 Body temperature 97.9 [degF] Dr. Jolie Parsons MD Work Phone: [facility] 10-03-2024 07:39-0400 Diastolic blood pressure 65 mm[Hg] Dr. Jolie Parsons MD Work Phone: [facility] 10-03-2024 07:39-0400 Heart rate 60 /min Dr. Jolie Parsons MD Work Phone: [facility] 10-03-2024 07:39-0400 Respiratory rate 18 /min Dr. Jolie Parsons MD Work Phone: [facility] 10-03-2024 07:39-0400 SaO2% (BldA) [Mass fraction] 97 % Dr. Jolie Parsons MD Work Phone: [facility] 10-03-2024 07:39-0400 Systolic blood pressure 99 mm[Hg] Dr. Jolie Parsons MD Work Phone: [facility] 10-03-2024 05:45-0400 Body height 160.[address] Jolie Parsons MD Work Phone: [facility] 10-03-2024 05:45-0400 Body mass index (BMI) [Ratio] 21.9 kg/m2 Dr. Jolie Parsons MD Work Phone: [facility] 10-03-2024 05:45-0400 Body weight 56.[address] Jolie Parsons MD Work Phone: [facility] 06-27-2024 08:32-0500 Body height 157.[address] Jolie Parsons MD Work Phone: [facility] 06-27-2024 08:32-0500 Body mass index (BMI) [Ratio] 23.3 kg/m2 Dr. Jolie Parsons MD Work Phone: [facility] 06-27-2024 08:32-0500 Body weight 58.[address] Jolie Parsons MD Work Phone: [facility] 06-25-2023 13:52-0500 Body temperature 97.5 [degF] Treatment Wstr Work Phone: [facility] 06-25-2023 13:52-0500 Diastolic blood pressure 62 mm[Hg] Treatment Wstr Work Phone: [facility] 06-25-2023 13:52-0500 Heart rate 77 /min Treatment Wstr Work Phone: [facility] 06-25-2023 13:52-0500 Respiratory rate 16 /min Treatment Wstr Work Phone: [facility] 06-25-2023 13:52-0500 SaO2% (BldA) [Mass fraction] 98 % Treatment Wstr Work Phone: [facility] 06-25-2023 13:52-0500 Systolic blood pressure 125 mm[Hg] Treatment Wstr Work Phone: [facility] 03-29-2023 15:21-0400 Body height 157.5 cm Nancy Harris APRN.CNP Work Phone: [facility] 03-29-2023 15:21-0400 Body weight 57.15 kg Nancy Harris APRN.COMMERCIAL CLEANER Work Phone: [facility] [facility] 03-29-2023 15:21-0400 Diastolic blood pressure 70 mm[Hg] Nancy Alfordr COLLISION REPAIR TECHNICIAN.COMMERCIAL CLEANER Work Phone: [facility] 03-29-2023 15:21-0400 Heart rate 63 /min Nancy Alfordr COLLISION REPAIR TECHNICIAN.COMMERCIAL CLEANER Work Phone: [facility] 03-29-2023 15:21-0400 SaO2% (BldA) [Mass fraction] 98 % Nancy Alfordr COLLISION REPAIR TECHNICIAN.COMMERCIAL CLEANER Work Phone: [facility] 03-29-2023 15:21-0400 Systolic blood pressure 104 mm[Hg] Nancy Harris APRN.COMMERCIAL CLEANER Work Phone: [facility] 08-05-2022 08:55-0500 Body height 160 cm Jolie Hughes APRN.COMMERCIAL CLEANER Work Phone: [facility] 08-05-2022 08:55-0500 Body weight 58.06 kg Jolie Hughes APRN.COMMERCIAL CLEANER Work Phone: [facility] 08-05-2022 08:55-0500 Diastolic blood pressure 60 mm[Hg] Jolie Hughes APRN.COMMERCIAL CLEANER Work Phone: [facility] 08-05-2022 08:55-0500 Systolic blood pressure 100 mm[Hg] Jolie Hughes APRN.COMMERCIAL CLEANER Work Phone: [facility] 07-07-2022 18:42-0500 Body temperature 98.2 [degF] Joana Iqbal APRN.COMMERCIAL CLEANER Work Phone: [facility] 07-07-2022 18:42-0500 Body weight 58.97 kg Joana Iqbal APRN.COMMERCIAL CLEANER Work Phone: [facility] 07-07-2022 18:42-0500 Diastolic blood pressure 68 mm[Hg] Joana Iqbal APRN.COMMERCIAL CLEANER Work Phone: [facility] 07-07-2022 18:42-0500 Heart rate 80 /min Joana Praisler-Wood COLLISION REPAIR TECHNICIAN.COMMERCIAL CLEANER Work Phone: [facility] 07-07-2022 18:42-0500 Respiratory rate 16 /min Joana Praisler-Wood COLLISION REPAIR TECHNICIAN.COMMERCIAL CLEANER Work Phone: [facility] 07-07-2022 18:42-0500 SaO2% (BldA) [Mass fraction] 96 % Joana Praisler-Wood COLLISION REPAIR TECHNICIAN.COMMERCIAL CLEANER Work Phone: [facility] 07-07-2022 18:42-0500 Systolic blood pressure 122 mm[Hg] Joana Praisler-Wood COLLISION REPAIR TECHNICIAN.COMMERCIAL CLEANER Work Phone: [facility] 04-30-2022 09:05-0400 Body temperature 97.9 [degF] Treatment Wstr Work Phone: [facility] 04-30-2022 09:05-0400 Diastolic blood pressure 64 mm[Hg] Treatment Wstr Work Phone: [facility] 04-30-2022 09:05-0400 Heart rate 78 /min Treatment Wstr Work Phone: [facility] 04-30-2022 09:05-0400 Systolic blood pressure 124 mm[Hg] Treatment Wstr Work Phone: [facility] 04-16-2022 08:07-0400 Body height 162.1 cm Mitchell An MD Work Phone: [facility] 04-16-2022 08:07-0400 Body weight 58.6 kg Mitchell An MD Work Phone: [facility] 04-16-2022 08:07-0400 Diastolic blood pressure 68 mm[Hg] Mitchell An MD Work Phone: [facility] 04-16-2022 08:07-0400 Heart rate 65 /min Mitchell An MD Work Phone: [facility] 04-16-2022 08:07-0400 Respiratory rate 16 /min Mitchell An MD Work Phone: [facility] 04-16-2022 08:07-0400 SaO2% (BldA) [Mass fraction] 98 % Mitchell An MD Work Phone: [facility] 04-16-2022 08:07-0400 Systolic blood pressure 118 mm[Hg] Mitchell An MD Work Phone: [facility] 11-17-2021 08:00-0400 Diastolic blood pressure 74 mm[Hg] Amaury Golias PT Work Phone: [facility] 11-17-2021 08:00-0400 Systolic blood pressure 106 mm[Hg] Amaury Golias PT Work Phone: [facility] 10-27-2021 13:38-0400 Body weight 56.7 kg Mitchell An MD Work Phone: [facility] 10-27-2021 13:38-0400 Diastolic blood pressure 64 mm[Hg] Mitchell An MD Work Phone: [facility] 10-27-2021 13:38-0400 Heart rate 76 /min Mitchell An MD Work Phone: [facility] 10-27-2021 13:38-0400 Respiratory rate 12 /min Mitchell An MD Work Phone: [facility] 10-27-2021 13:38-0400 SaO2% (BldA) [Mass fraction] 94 % Mitchell An MD Work Phone: [facility] 10-27-2021 13:38-0400 Systolic blood pressure 122 mm[Hg] Mitchell An MD Work Phone: [facility] Encounters Encounter Date Encounter Type Care Provider Facility Start: 05-17-2025 Encounter for genera l adult medical examination without abnormal findings Dhaval Nairow MARIE [facility] Start: 05-09-2025 End: 05-09-2025 ambulatory [facility] Facility:[facility] Start: 05-07-2025 End: 05-07-2025 ambulatory [facility] Facility:[facility] Start: 12-19-2024 End: 01-19-2025 Admission to same day surgery center Mitchell An MD Work Phone: Ambulatory Surgery Comment on above: Outpatient Colonosco py (Patient is overdue for colorectal cancer screening since 10/10/2023. Please schedule open access colonoscopy. /) Start: 12-19-2024 End: 01-19-2025 ambulatory Mitchell An MD Work Phone: Ambulatory Surgery Start: 10-03-2024 ambulatory Jolie Parsons Facility: [facility] Start: 10-03-2024 Non-patient / Non-visit Vinnie De La Cruz nd DO -[facility] Start: 10-03-2024 End: 10-03-2024 Admission to same day surgery center Vinnie Enrique DO -Endoscopy Work Phone: Start: 10-03-2024 End: 10-03-[address] Jolie Parsons MD Work Phone: [facility] Work Phone: Start: 09-15-2024 End: 09-15-[address] Jolie Parsons MD Work Phone: [facility] Work Phone: Start: 09-15-2024 End: 09-15-[address] uJlius Monsalve MD -Radiology, [place] Work Phone: Start: 09-15-2024 End: 09-15-2024 ambulatory Joile Parsons Facility:[facility] Start: 08-08-2024 End: 09-08-2024 ambulatory Mitchell An MD Work Phone: [facility] [place] Start: 07-06-2024 End: 07-06-2024 Patient encounter procedure Jessica Appiah NP-C -Outpatient Breast Imaging Work Phone: Start: 07-06-2024 End: 07-06-2024 ambulatory Jessica Appiah NP Facility:[facility] Start: 06-27-2024 Non-patient / Non-visit Dr. Erica Parsons MD Work Phone: [facility] Work Phone: Start: 06-27-2024 ambulatory [facility] Facility:[facility] Start: 06-05-2024 End: 06-05-2024 Orders Only Nancy Harris APRN.COMMERCIAL CLEANER Work Phone: [facility] [place] Start: 11-02-2023 ambulatory Nancy SOTELOCOMMERCIAL CLEANER Work Phone: [facility] [place] Comment on above: DXA done density Start: 09-08-2023 ambulatory Mitchell Vora Work Phone: [facility] [place] Start: 06-25-2023 End: 06-25-2023 ambulatory Treatment Rm 10 Gene [facility] Work Phone: Hematology/Oncology Comment on above: Age-related osteopor osis without current pathological fracture (Primary Dx) Start: 05-18-2023 End: 05-18-2023 Subsequent hospital visit by physician Bone Density [facility] Work Phone: Radiology Comment on above: Age-related osteopor osis without current pathological fracture [M81.0] Start: 05-04-2023 Telephone encounter Nba dailey MD Work Phone: Hematology/Oncology Comment on above: Orders Start: 03-29-2023 End: 03-29-2023 Patient encounter procedure Nancy Harris APRN.COMMERCIAL CLEANER Work Phone: [facility] [place] Comment on above: Wellness examination (Primary Dx); Age-related osteoporosis without current pathological fracture; Multiple thyroid nodules; Sleep disorder; Mood changes; Vitamin D deficiency; Encounter for immunization; Encounter for therapeutic drug monitoring Start: 03-29-2023 End: 03-29-2023 Patient encounter status Nancy Harris APRN.COMMERCIAL CLEANER Work Phone: [facility] Work Phone: Start: 08-06-2022 Documentation procedure Mammog ruben Coordinator [facility] Start: 08-06-2022 Letter encounter Mammography Coordinator [facility] Department Start: 08-05-2022 End: 08-05-2022 Patient encounter procedure Jolie Hughes APRN.COMMERCIAL CLEANER Work Phone: OB/Gynecology Comment on above: Encounter for gyneco logical examination (general) (routine) without abnormal findings (Primary Dx); Encounter for screening mammogram for breast cancer Start: 08-05-2022 End: 08-05-2022 Patient encounter status Jolie Hughes APRN.COMMERCIAL CLEANER Work Phone: OB/Gynecology Start: 08-05-2022 End: 08-05-2022 Subsequent hospital visit by physician Screen Mammo [facility] Mammogram Comment on above: Encounter for screen ing mammogram for breast cancer [Z12.31] Start: 07-23-2022 E-mail encounter fro m caregiver Trisha Roth APRN.COMMERCIAL CLEANER Work Phone: [facility] Start: 07-23-2022 Patient encounter procedure Trisha Gonzalez JAMESON.COMMERCIAL CLEANER Work Phone: OB/Gynecology Comment on above: 07/23/22 appointment Start: 07-08-2022 ambulatory Mitchell Vora Work Phone: [facility] [place] Start: 07-07-2022 End: 07-07-2022 Patient encounter procedure Joana Iqbal APRN.COMMERCIAL CLEANER Work Phone: [facility] Comment on above: Sore throat (Primary Dx); Strep throat Start: 05-12-2022 ambulatory Mitchell Vora Work Phone: Internal Medicine [place] Comment on above: Denial for Zoledroni c Acid Start: 05-08-2022 End: 05-08-2022 ambulatory Mi Nurse Work Phone: [facility] [place] Start: 04-30-2022 Patient encounter procedure Kiley Rees APRN.CNP Work Phone: [facility] [place] Start: 04-30-2022 Telephone encounter Kiley Rees APRN.CNP Work Phone: [facility] [place] Comment on above: Orders Lab Order Request Start: 04-30-2022 End: 04-30-2022 ambulatory Treatment Rm 5 Gene [facility] Work Phone: Hematology/Oncology Comment on above: Age-related osteopor osis without current pathological fracture (Primary Dx) Start: 04-16-2022 End: 04-16-2022 Patient encounter procedure Mitchell An MD Work Phone: [facility] [place] Comment on above: Annual physical exam (Primary Dx); Osteopenia of multiple sites; Height loss; Vitamin D deficiency; High risk for fracture due to osteoporosis by DEXA scan Start: 12-01-2021 End: 12-01-2021 ambulatory Underground Cellar PT Work Phone: [facility] Comment on above: Lumbar disc herniati on with radiculopathy (Primary Dx) Start: 11-28-2021 End: 11-28-2021 ambulatory [employer] PT Work Phone: [facility] Comment on above: Lumbar disc herniati on with radiculopathy (Primary Dx) Start: 11-17-2021 End: 11-17-2021 OT/PT/Speech Visit [facility] PT Work Phone: [facility] Comment on above: Chronic bilateral lo w back pain without sciatica; Lumbar disc herniation with radiculopathy; Intervertebral disc disorder with radiculopathy of lumbar region Start: 11-10-2021 End: 11-10-2021 Subsequent hospital visit by physician [place] [facility] [place] [facility] Work Phone: Radiology Comment on above: Pain in left hip [M2 5.552] Start: 11-04-2021 Orders Only Jossue Gutierrez MD Work Phone: Orthopaedics Comment on above: Pain in left hip (Pr imary Dx) Start: 10-27-2021 Telephone encounter Yadira Steel ( Coord) Radiology Comment on above: Appointment Start: 10-27-2021 End: 10-27-2021 Patient encounter procedure Mitchell An MD Work Phone: Internal [facility] [place] Comment on above: Left hip pain (Prima ry Dx); Lipid screening; Elevated blood sugar Start: 08-22-2020 End: 08-22-2020 Patient encounter procedure External Provider [facility] Start: 08-22-2020 Results Only External Provider Exter nal-[facility] Start: 03-09-2019 End: 03-12-2019 Patient encounter procedure ERIK LUNA [facility] Start: 03-09-2019 End: 03-11-2019 Subsequent hospital visit by physician Marily Mammogram [facility] Comment on above: Encounter for screen ing mammogram for malignant neoplasm of breast Start: 09-16-2017 End: 09-19-2017 Ambulatory [facility] Procedures Date Procedure Procedure Detail Performing Clinician Start: 10-03-[address] Jolie Parsons MD Work Phone: Start: 09-15-2024 Plain x-ray of pelvis and lower extremity Dr. Jolie Parsons MD Work Phone: Start: 07-06-[address] Jolie Parsons MD Work Phone: Start: 05-18-2023 Dxa bone density study 1/> sites axial skel Nancy Harris APRN.COMMERCIAL CLEANER Work Phone: Start: 03-29-2023 INFLUENZA VACCINE, AGE 6 MO - 64 YR, QUADRIVALENT (AFLURIA, FLULAVAL, FLUZONE) Nancy Harris COLLISION REPAIR TECHNICIAN.COMMERCIAL CLEANER Work Phone: Start: 08-05-2022 End: 08-05-2022 Mammography Bulk Order Provider Start: 07-07-2022 STREP A MOLECULAR (POC) Amanda Mcmanus PA-C Work Phone: Start: 05-08-2022 INFLUENZA VACCINE QUADRIVALENT 6 MO - 64 YRS IM Mitchell An MD Work Phone: Start: 11-10-2021 Radex hip unilateral with pelvis 2-3 views Jossue Gutierrez MD Work Phone: Start: 10-31-2021 Lipid 1996 panel - Serum or Plasma Nancy Harris APRN.COMMERCIAL CLEANER Work Phone: Start: 03-19-2021 Mammography Mitchell An MD Work Phone: Start: 09-08-2020 Adult depression screening assessment Mitchell An MD Work Phone: Start: 02-11-2021 EXTERNAL IMAGING External Provider Start: 03-09-2019 Screening mammography bi 2-view breast inc cad ERIK LUNA Start: 03-09-2019 Screening digital breast tomosynthesis bi Erik Puga Lynne Work Phone: Start: 09-16-2017 Us abdominal real time w/image limited MEJIA PIERRE Start: 10-09-2013 Colonoscopy Mitchell An MD Work Phone: Start: 01-27-2013 H/O: [...] RSV Vaccine (1 - 1-dose 75+ series) [facility] Start: 10-31-2026 Lipid 1996 panel - Serum or Plasma Lipid Screening [facility] Start: 10-31-2026 Lipid panel Lipid Screening [facility] Start: 10-31-2026 LIPID SCREEN LIPID SCREEN [facility] Start: 06-25-2026 Diabetes Screening Diabetes Screenin [facility] Start: 05-04-2026 DTaP/Tdap/Td vaccine (5 - Td) DTaP/Tdap/Td vaccine (5 - Td) [place] Start: 05-04-2026 Urine microalbumin profile [facility] Start: 03-29-2026 Diabetes Screening Diabetes Screenin g [facility] Start: 02-27-2026 HPV TESTING HPV TESTING [facility] Start: 02-27-2026 PAP TESTING PAP TESTING [facility] Start: 02-27-2026 Screening for malign ant neoplasm of cervix [facility] Start: 05-03-2025 LIPID SCREEN LIPID SCREEN [facility] Start: 04-30-2025 DIABETES SCREEN DIABETES SCREEN [facility] Start: 04-30-2025 Diabetes Screening Diabetes Screenin g [facility] Start: 03-12-2025 Influenza vaccination Influenza Vacc ine (#1) [facility] Start: 10-31-2024 DIABETES SCREEN DIABETES SCREEN [facility] Start: 10-03-2024 Patient discharge [facility] Start: 04-25-2024 DIABETES SCREEN DIABETES SCREEN [facility] Start: 03-12-2024 Covid-19 Vaccine ( season) Covid-19 Vaccine ( season) [facility] Start: 03-12-2024 Influenza vaccination Influenza Vacc ine (#1) [facility] Start: 10-10-2023 Colon cancer screen colonoscopy Colon cancer screen colonoscopy [place], [place] Start: 10-10-2023 Colonoscopy COLONOSCOPY [facility] Start: 10-10-2023 COLORECTAL CANCER SCREENING COLORECTAL CANCER SCREENING [facility] Start: 10-10-2023 Screening for malign ant neoplasm of colon [facility] Start: 08-05-2023 Mammography [facility] Start: 08-05-2023 Screening for malign ant neoplasm of breast Mammogram Screening [facility] Start: 07-12-2023 Behavioral Health Screening Behavioral Health Screening [facility] Start: 07-12-2023 Depression Assessment Depression Ass essment [facility] Start: 05-05-2023 End: 08-04-2023 Comprehensive metabolic 2000 panel - Serum or Plasma COMP METABOLIC PANEL Lab Routine Encounter for therapeutic drug monitoring Expected: 05/05/2023, Expires: 08/04/2023 [facility] Work Phone: Comment on above: Expected: 05/05/2023 , Expires: 08/04/2023 Start: 03-29-2023 End: 05-29-2023 25-hydroxyvitamin D3 [Mass/volume] in Serum or Plasma [facility] Work Phone: Comment on above: Expected: 03/29/2023 , Expires: 05/29/2023 Start: 03-29-2023 End: 05-29-2023 Comprehensive metabolic 2000 panel - Serum or Plasma [facility] Work Phone: Comment on above: Expected: 03/29/2023 , Expires: 05/29/2023 Start: 03-29-2023 End: 05-29-2023 Thyrotropin [Units/volume] in Serum or Plasma [facility] Work Phone: Comment on above: Expected: 03/29/2023 , Expires: 05/29/2023 Start: 03-12-2023 Covid-19 Vaccine () Covid-19 Vaccine () [facility] Start: 07-12-2022 DEPRESSION ASSESSMENT DEPRESSION ASS ESSMENT [facility] Start: 04-16-2022 End: 04-16-2023 25-hydroxyvitamin D3 [Mass/volume] in Serum or Plasma [facility] Work Phone: Comment on above: Expected: 04/16/2022 , Expires: 04/16/2023 Start: 03-19-2022 Mammography MAMMOGRAM [facility] Start: 03-12-2022 Influenza vaccination INFLUENZA (#1) [facility] Start: 10-27-2021 End: 12-27-2021 Hemoglobin A1c/Hemoglobin.total in Blood HGB A1C Lab Routine Elevated blood sugar Expected: 10/27/2021, Expires: 12/27/2021 [facility] Work Phone: Comment on above: Expected: 10/27/2021 , Expires: 12/27/2021 Start: 10-27-2021 End: 12-27-2021 LIPID PANEL BASIC LIPID PANEL BASIC Lab Routine Lipid screening Expected: 10/27/2021, Expires: 12/27/2021 [facility] Work Phone: Comment on above: Expected: 10/27/2021 , Expires: 12/27/2021 Start: 09-26-2021 COVID-19 VACCINE (3 - Booster for South series) COVID-19 VACCINE (3 - Booster for South series) [facility] Start: 09-08-2021 Adult depression screening assessment DEPRESSION SCREENING [facility] Start: 07-24-2021 COVID-19 VACCINE (3 - Booster for South series) COVID-19 VACCINE (3 - Booster for South series) [facility] Start: 05-04-2021 Lipid screen Lipid screen [facility]- [place], [place] Start: 2021 RSV Vaccine (1 - 1-d ose 60+ series) RSV Vaccine (1 - 1-dose 60+ series) [facility] Start: 03-09-2021 Breast cancer screen Breast cancer s creen [place], [place] Start: 11-29-2020 Cervical cancer screen Cervical canc er screen [place], [place] Start: 03-12-2020 Influenza vaccination INFLUENZA (#1) [facility] Start: 03-12-2019 Influenza vaccination Flu vaccine (# 1) [place] Start: 01-27-2018 PAP TESTING PAP TESTING [facility] Start: 04-03-2016 HPV TESTING HPV TESTING [facility] Start: 01-27-2014 Mammography MAMMOGRAM [facility] Start: 04-05-2013 Adult depression screening assessment DEPRESSION SCREENING [facility] Start: 2011 Pneumococcal Vaccine : 50+ (1 of 1 - PCV) Pneumococcal Vaccine: 50+ (1 of 1 - PCV) [facility] Start: 2011 Screening for malign ant neoplasm of colon [facility] Start: 2011 Shingles Vaccine (1 of 2) Shingles Vaccine (1 of 2) [place] Start: 2011 SHINGRIX VACCINE (1 of 2) SHINGRIX VACCINE (1 of 2) [facility] Start: 04-11-2011 LIPID SCREEN LIPID SCREEN [facility] Start: 04-11-2009 DIABETES SCREEN DIABETES SCREEN [facility] Start: 2006 COLOGUARD (FIT-DNA) COLOGUARD (FIT-D NA) [facility] Start: [address] COLONOGRAPHY [facility] Start: 2006 FECAL OCCULT BLOOD FECAL OCCULT BLOO D [facility] Start: 2006 Screening for malign ant neoplasm of colon [facility] Start: 2006 SIGMOIDOSCOPY SIGMOIDOSCOPY [facility] Start: 1980 Urine microalbumin profile DTAP,TDAP,TD (1 - Tdap) [facility] Start: 1979 Anxiety Screening Anxiety Screening [facility] Start: 1979 Depression Screening Depression Scre ening [facility] Start: 1979 HEPATITIS C SCREENING HEPATITIS C SC REENING [facility] Start: 1979 HIV SCREENING HIV SCREENING [facility] Colonoscopy [facility] End: 09-07-2025 DBT Breast - bilateral screening ROSCOE SCREENING W GARCIA Radiology Routine Encounter for screening mammogram for breast cancer 1 Occurrences starting 08/08/2024 until 09/07/2025 [facility] Work Phone: Comment on above: 1 Occurrences starti ng 08/08/2024 until 09/07/2025 End: 08-07-2023 ROSCOE SCREENING ROSCOE SCREENING Radiology Routine Encounter for screening mammogram for breast cancer 1 Occurrences starting 07/08/2022 until 08/07/2023 [facility] Work Phone: Comment on above: 1 Occurrences starti ng 07/08/2022 until 08/07/2023 End: 09-04-2023 ROSCOE SCREENING ROSCOE SCREENING Radiology Routine Encounter for gynecological examination (general) (routine) without abnormal findings Encounter for screening mammogram for breast cancer 1 Occurrences starting 08/05/2022 until 09/04/2023 [facility] Work Phone: Comment on above: 1 Occurrences starti ng 08/05/2022 until 09/04/2023 End: 10-07-2024 MG Breast Screening ROSCOE SCREENING Radiology Routine Encounter for screening mammogram for breast cancer 1 Occurrences starting 09/08/2023 until 10/07/2024 [facility] Work Phone: Comment on above: 1 Occurrences starti ng 09/08/2023 until 10/07/2024 Patient referral [facility] Work Phone: PT PLAN OF CARE CERTIFICATION PT PLAN OF CARE CERTIFICATION Procedures Routine Chronic bilateral low back pain without sciatica 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 Ordered: 11/17/2021 [facility] Work Phone: Comment on above: Ordered: 11/17/2021 End: 11-26-2022 Us compl joint r-t w/image documentation US HIP LT Radiology Routine Left hip pain 1 Occurrences starting 10/27/2021 until 11/26/2022 [facility] Work Phone: Comment on above: 1 Occurrences starti ng 10/27/2021 until 11/26/2022 End: 12-04-2022 XR HIP GENERAL 3V PELV/AP/LAT LEFT XR HIP GENERAL 3V PELV/AP/LAT LEFT Radiology Routine Pain in left hip 1 Occurrences starting 11/04/2021 until 12/04/2022 [facility] Work Phone: Comment on above: 1 Occurrences starti ng 11/04/2021 until 12/04/2022 [facility] Immunizations Immunization Date Immunization Notes Care Provider Fa wilfrido 03-29-2023 influenza, injectabl e, quadrivalent, contains preservative Nancy Kimberly COLLISION REPAIR TECHNICIAN.COMMERCIAL CLEANER Work Phone: [facility] Work Phone: 03-29-2023 influenza virus vaccine, unspecified formulation Nancy Kimberly COLLISION REPAIR TECHNICIAN.COMMERCIAL CLEANER Work Phone: [facility] 05-08-2022 influenza, injectabl e, quadrivalent, contains preservative Mi Nurse Work Phone: [facility] Work Phone: 05-29-2021 COVID-19 vaccine, ag e 12+ yr (PFIZER-BIONTTerviu - [facility]) Mitchell An MD Work Phone: [facility] Work Phone: 05-29-2021 zoster vaccine recombinant Mitchell An MD Work Phone: [facility] Work Phone: 04-11-2021 influenza, injectabl e, quadrivalent, contains preservative Mitchell An MD Work Phone: [facility] Work Phone: 03-06-2021 zoster vaccine recombinant Mitchell An MD Work Phone: [facility] Work Phone: 09-19-2020 COVID-19 vaccine (SOUTH) Mitchell An MD Work Phone: [facility] Work Phone: 05-10-2020 influenza, injectabl e, quadrivalent, contains preservative Nancy Kimberly COLLISION REPAIR TECHNICIAN.[facility] Work Phone: [facility] Work Phone: 03-28-2019 influenza, injectabl e, quadrivalent, contains preservative Nancy Kimberly COLLISION REPAIR TECHNICIAN.COMMERCIAL CLEANER Work Phone: [facility] Work Phone: 04-21-2017 influenza, injectabl e, quadrivalent, contains preservative [facility] Work Phone: 05-04-2016 influenza, injectabl e, quadrivalent, preservative free [facility] Work Phone: 05-04-2016 tetanus toxoid, redu nelly diphtheria toxoid, and acellular pertussis vaccine, adsorbed [facility] 05-16-2015 influenza, injectabl e, quadrivalent, preservative free Nancy Kimberly COLLISION REPAIR TECHNICIAN.[facility] Work Phone: [facility] Work Phone: 05-15-2015 influenza virus vaccine, whole virus [facility] Work Phone: 05-09-2014 influenza, injectabl e, quadrivalent, preservative free Nancy Kimberly COLLISION REPAIR TECHNICIAN.[facility] Work Phone: [facility] Work Phone: 05-02-2009 novel [id number], preservative-free, injectable Nancy Kimberly COLLISION REPAIR TECHNICIAN.[facility] Work Phone: [facility] Work Phone: 04-29-2009 influenza virus vaccine, whole virus Nancy Kimberly COLLISION REPAIR TECHNICIAN.COMMERCIAL CLEANER Work Phone: [facility] Work Phone: 05-25-2008 influenza virus vaccine, whole virus Nancy Kimberly COLLISION REPAIR TECHNICIAN.COMMERCIAL CLEANER Work Phone: [facility] Work Phone: 07-21-2006 diphtheria, tetanus toxoids and acellular pertussis vaccine, unspecified formulation Nancy Kimberly COLLISION REPAIR TECHNICIAN.[facility] Work Phone: [facility] Work Phone: 07-21-2006 haemophilus influenz ae type b vaccine, conjugate unspecified formulation Nancy Kimberly COLLISION REPAIR TECHNICIAN.[facility] Work Phone: [facility] Work Phone: 07-21-2006 poliovirus vaccine, inactivated Nancy Kimberly COLLISION REPAIR TECHNICIAN.COMMERCIAL CLEANER Work Phone: [facility] Work Phone: 03-17-2006 measles, mumps and rubella virus vaccine Nancy Kimberly COLLISION REPAIR TECHNICIAN.[facility] Work Phone: [facility] Work Phone: 11-18-2005 haemophilus influenz ae type b vaccine, conjugate unspecified formulation Nancy Kimberly COLLISION REPAIR TECHNICIAN.[facility] Work Phone: [facility] Work Phone: 11-18-2005 tetanus toxoid, redu nelly diphtheria toxoid, and acellular pertussis vaccine, adsorbed Nancy Kimberly COLLISION REPAIR TECHNICIAN.[facility] Work Phone: [facility] Work Phone: 02-11-1998 hepatitis B vaccine, pediatric or pediatric/adolescent dosage Nancy Kimberly COLLISION REPAIR TECHNICIAN.[facility] Work Phone: [facility] Work Phone: 09-05-1997 hepatitis B vaccine, pediatric or pediatric/adolescent dosage Nancy Kimberly COLLISION REPAIR TECHNICIAN.[facility] Work Phone: [facility] Work Phone: 07-25-1997 hepatitis B vaccine, pediatric or pediatric/adolescent dosage Nancy Kimberly COLLISION REPAIR TECHNICIAN.[facility] Work Phone: [facility] Work Phone: 02-11-1989 measles, mumps and rubella virus vaccine Nancy Kimberly COLLISION REPAIR TECHNICIAN.[facility] Work Phone: [facility] Work Phone: 09-24-1987 diphtheria, tetanus toxoids and acellular pertussis vaccine, unspecified formulation Anncy Kimberly COLLISION REPAIR TECHNICIAN.[facility] Work Phone: [facility] Work Phone: Payers Date Payer Category Payer Self-pay 2021 Private Health Insurance DESIRAE [id number] 2021 Unknown DESIRAE DESIRAE BRITTNEY TORRES DYLAN / DESIRAE [id number] 2021-Present [phone] [address] [address] [facility] [place] [address] EPO [id number] 2021 Unknown [id number] 2019 Unknown MMO MMO [employer] [id number] 2019-Present PPO [id number] 2014 Unknown [id number] 2014 Unknown [employer] M [employer] [address] xxxxxxxxxxxx 2014-Present [phone] [address] [place] [address] xxxxxxxxxxxx [id number] 1960 Unknown [id number] Unknown [id number] Unknown [id number] Unknown [id number] Unknown [id number] Unknown [id number] Unknown [id number] Unknown [id number] Social History Date Type Detail Facility Start: 02-02-2015 End: 04-16-2022 Tobacco smoking status NHIS Former smoker [facility] Start: 07-12-1971 End: 07-16-1986 History of tobacco use Current smoker [place] Start: 07-12-1971 End: 07-12-1979 History of tobacco use Cigarette Smoker [facility] Start: 02-02-2015 End: 03-28-2023 Cigarettes smoked current (pack per day) - Reported [facility] Start: 02-02-2015 End: 04-16-2022 Tobacco use and exposure Never used [facility] Start: 02-02-2015 End: 03-29-2023 Alcohol intake Current drinker of alcohol (finding) [facility] Start: 1960 Sex Assigned At Not on file [place], [place] Start: 11-25-2017 End: 03-28-2023 Alcohol intake Yes [facility] Start: 11-25-2017 Alcohol Comment Occassionally [place] Start: 10-25-2021 End: 04-14-2022 History SDOH Alcohol Frequency 3 [facility] Start: 10-25-2021 End: 04-14-2022 History SDOH Alcohol Std Drinks 1 [facility] Start: 10-25-2021 History SDOH Alcohol Binge 2 [facility] Start: 10-25-2021 History SDOH Social Connections Phone 5 [facility] Start: 10-17-2020 Education 12 [facility] Start: 1960 Sex Assigned At Female C [facility] Start: 10-21-2021 End: 04-16-2022 Exposure to SARS-CoV-2 (event) Not sure [facility] Work Phone: Has the electric, gas, oil, or water company threatened to shut off services in your home in past 12Mo No [facility] Are you now , , , , never or living with a partner? [facility] How often to you hav e a drink containing alcohol? 2-4 times a month [facility] How many standard drinks containing alcohol do you have on a typical day? 1 or 2 [facility] How often do you hav e 6 or more drinks on 1 occasion? Never [facility] How hard is it for you to pay for the very basics like food, housing, medical care, and heating Not hard at all [facility] Do you feel stress - tense, restless, nervous, or anxious, or unable to sleep at night because your mind is troubled all the time - these days [OSQ] To some extent [facility] (I/We) worried whether (my/our) food would run out before (I/we) got money to buy more. Never true [facility] Start: 10-17-2020 Gender identity Identifies as female gender (finding) [facility] Start: 09-08-2020 Sexual orientation Heterosexual (poncho rondon) [facility] How often do you hav e 6 or more drinks on 1 occasion? Less than monthly [facility] Do you feel stress - tense, restless, nervous, or anxious, or unable to sleep at night because your mind is troubled all the time - these days [OSQ] Only a little [facility] Start: 05-08-2024 End: 09-29-2024 Tobacco smoking status NHIS Never smoked tobacco (finding) [facility] Start: 09-26-2024 End: 10-03-2024 Sex Female (finding) [facility] NEGATED: Highlighted row Not [facility] Medical Equipment Procedure Code Equipment Code Equipment Origin al Text Equipment Identifier Dates Efr-Mz-Z-Kind Implant - [id number] Start: 03-29-2012 Comment on above: Description: ricky loza silicone-filled breast implant Bcd-Cs-D-Kind Implant - [id number] Start: 03-29-2012 Comment on above: Description: ricky loza silicone-filled breast implant Goals Date Patient Goal Desired Activity /State Functional Status Date Assessment Result Facility 07-02-2014 Are you deaf, or do you have serious difficulty hearing No 07/02/2014 10:20 AM Ruth Wright LPN [facility] 07-02-2014 Are you blind, or do you have serious difficulty seeing, even when wearing glasses No 07/02/2014 10:20 AM Ruth Wright LPN [facility] 07-02-2014 Do you have serious difficulty walking or climbing stairs No 07/02/2014 10:20 AM Ruth Wright LPN [facility] 07-02-2014 Do you have difficul ty dressing or bathing No 07/02/2014 10:20 AM Ruth Wright LPN [facility] 07-02-2014 Because of a physica l, mental, or emotional condition, do you have difficulty doing errands alone such as visiting a physician's office or shopping No 07/02/2014 10:20 AM Ruth Wright LPN [facility] Mental Status Date Assessment Result Facility 10-03-2024 Cognitive function Voice/Name [facility] Work Phone: 07-02-2014 Because of a physica l, mental, or emotional condition, do you have serious difficulty concentrating, remembering, or making decisions No 07/02/2014 10:20 AM Ruth Wright LPN [facility] Clinical Notes 10-27-2021 to 01-01-2025 Jessica Bernardo - 01/01/2025 10:53 AM Jessica Castro - 12/21/2024 1:18 PM EDTPatient Instructions Note Date & Type Note Facility 01-01-2025 Note HNO ID: [id number] Author: ?, ?, ? Service: ? Author Type: ? Type: Progress Notes Filed: 01/19/2025 03:06 Note Text: Spoke with patient, she switched pcp due to insurance and had colonoscopy done already. [facility] 01-01-2025 History of Presen t illness Narrative Spoke with patient, she switched pcp due to insurance and had colonoscopy done already. 1st attempt LVM to schedule colonoscopy documented in this encounter [facility] 12-21-2024 Note HNO ID: [id number] Author: ?, ?, ? Service: ? Author Type: ? Type: Progress Notes Filed: 01/19/2025 03:06 Note Text: 1st attempt LVM to schedule colonoscopy [facility] 12-19-2024 Instructions Robina Matias RN - 12/19/2024 [...] am on dialysis? A: Please consult your body care manager prior to scheduling to get instructions pertinent to you. In general, dialysis patients take the AppFogly bowel prep and have the procedure same [...] am on dialysis? A: Please consult your body care manager prior to scheduling to get instructions pertinent to you. In general, dialysis patients take the Appetasytely bowel prep and have the procedure same [...] inadequate prep quality. documented in this encounter [facility] 12-19-2024 Note Patient Outreach ( WSTR) JOLIE HEALY ([id number]) 1960 F Date Time Provider Department 12/19/24 MITCHELL AN During your visit today, we recorded the following information about you: Robina Matias, RN 12/19/2024 1:46 PM Addendum COLONOSCOPY BOWEL [...] buy sugar-free, e. (more content not included)... [facility] 10-03-2024 Procedure note [facility] 10-03-2024 Procedure note [facility] 10-03-2024 Consult note [facility] 10-03-2024 Evaluation note Diagnosis Onset Date Resolution Encounter for screening for malignant neoplasm of colon acute October 03, 2024 5:20am [facility] Work Phone: [phone] History and physical note [facility] Medical Records Department [address] [place] [address] History & Physical Exam 10/03/24 0658 MR#: [id number] Acct: [id number] Name: JOLIE HEALY Rep #:[id number] : 1960 64 From: Vinnie Enrique DO PCP: Dr. Jolie Parsons MD Status:[facility] Location: [place] [address]- HPI - General General Date of Admission: 10/03/24 Date of Service: 10/03/24 Chief Complaint: Screening colonoscopy HPI Narrative JOLIE HEALY, is a 64 F who presents today for screening colonoscopy. She has not had a colonoscopy inthe past. She has no medical history. She does not take any medicines on daily basis. [facility] Medical History Loss of hearing Post-menopausal Alcohol [...] DO~ Signed [facility]03-25-2025 [facility] Medical Records Department [address] [place] [address] History Physical Exam 10/03/24 0658 MR#: [id number] Acct: [id number] Name: JOLIE HEALY Rep #: [id number] : 1960 64 From: Vinnie Enrique DO PCP: Dr. Jolie Parsons MD Status:[facility] Location: [place] [address] HPI - General General Date of Admission: 10/03/24 Date of Service: 10/03/24 Chief Complaint: Screening colonoscopy HPI Narrative JOLIE HEALY, is a 64 F who presents today for screening colonoscopy. She has not had a colonoscopy in the past. She has no medical history. She does not take any medicines on daily basis. [facility] Medical History Loss of hearing Post-menopausal Alcohol [...] CC: Dr. Jolie Parsons MD; Vinnie Friend, [facility]03-25-2025 Consult note [facility] Medical Records Department [address] [place] [address] Pre-Anesthesia Evaluation 10/03/24627 MR#: [id number] Acct: [id number] Name: JOLIE HEALY Rep #:[id number] : 1960 64 From: Franco Jarrett MD PCP: Dr. Jolie Parsons MD Status:[facility] Y Race: C Location: [place] [address] ASA Classification* ASA Classification ASA Classification: 2 [...] cm Mallampati Score: I Teeth Condition: Caps/Crowns ([place] on left lower molar. It is tight.) [...] cscope oa Anesthesia History Anesthesia History - classroom technology coach: Anesthesia History - classroom technology coach Hx Hospitalization No 09/29/24 08:28 Any Problems [...] prep at 1 AM.) PONV PONV - classroom technology coach: PONV - classroom technology coach Female Yes 09/29/24 08:28 HX of Motion [...] 10/03/24 05:45 Respiratory Assessment Respiratory Assessment - classroom technology coach: Respiratory Tract Infection Hx - classroom technology coach Hx Respiratory Tract Infection No 09/29/24 08:28 STOP Sleep Apnea STOP Sleep Apnea - classroom technology coach: STOP Sleep Apnea - classroom technology coach Hx Hypertension No 09/29/24 08:28 Hx Sleep [...] Tobacco Use History Tobacco Use History - classroom technology coach: Tobacco Use History - classroom technology coach Tobacco Use Smoking Status Never smoker 09/29/24 08:28 Hx Tobacco Use No 09/29/24 08:28 Years Smoking Packs Smoked per Day Smoking Cessation Date was within the last 15 years Hx Smoking Cessation Date Hx Smoking Cessation Counseling Hematologic Medial History Hematologic Hx - classroom technology coach: Hematologic Medical Hx - biometrician Hx of Blood Transfusion No 09/29/24 08:28 [...] confused, unrespo /Reproduction History /Reproductive History - classroom technology coach: /Reproductive Hx- classroom technology coach Hx Now No 09/29/24 08:28 Gestational Age (in weeks): EDC: Hx Hx Para Hx Section SAB No 09/29/24 08:28 [facility] Medical History Loss of hearing Post-menopausal Alcohol [...] mg tablet (24Hour 10 mg PO DAILY 10/03/ 5 10/02/24 History Allergy) Allergy/AdvReac Type Severity [...] ~ Signed [facility]03-07-2025 Radiology Diagnostic study note [facility] Imaging Services [address] [place] [address] Hips B/L min 2 views w/ Pelvis MR#: [id number] Acct: [id number] Name: JOLIE HEALY Rep #: [id number] : 1960 F 64 From: Tony Thomas MD PCP: Dr. Jolie Parsons MD Status: REG CLI Study:Hips B/L min 2 views w/ Pelvis Date of Exam: 09/15/24 Exam# [id number] Ordering Dr: Julius Monsalve MD PROCEDURE: Bilateral [...] No acute abnormality is seen. Reading Location: [place] CC: Dr. oJlie Parsons MD; Dr. Julius Monsalve MD ~ Lead Painter: Signed [facility]01-28-2025 NotePatient Outreach (INTMWS) JOLIE HEALY ([id number]) 1960 F Date Time Provider Department 08/08/24 [...] Date Reviewed: 06/25/2023 Reviewed by: Joya Onofre, RN - Fully Assessed Visit Diagnosis:Encounter for screening mammogram for breast cancer [Z12.31] Order(s):[facility] SCREENING W GARCIA [[id number]] Order #: [id number] FUTURE Prescriptions as of 09/08/2024 - meloxicam [...] herniation with radiculopathy [M51.*11/17/2021 Encounter Status:Closed by ARIELA CORTEZ on 09/08/24[facility] 05-18-2023 History of Present illness Narrative* Justin [...] 18, 2023 3:23 PM [facility] Miscellaneous Notes* Result Encounter Note - Nancy Harris APRN.CNP - 05/18/2023 3:30 PM EST Bone density shows osteopenia but overall stable. documented in this encounterProtest[facility]10-25-2023 Miscellaneous Notes* Telephone Encounter - Gale Lopez - 05/05/2023 9:45 AM EDT Spoke with pt and scheduled for 07/[address] CMP for treatment * Telephone Encounter - Asha Mandel - 05/04/2023 3:48 PM EDT Patient called to schedule Reclast - ordering prov PCP. Please review and advise. documented in this encounterProtest[facility]09-18-2023 History of Present illness Narrative* Nancy Harris APRN.COMMERCIAL CLEANER - 03/29/2023 3:33 PM EDT CHIEF COMPLAINT: [...] back asleep. Has thyroid nodules. Other Providers: STRUCTURAL MILL SUPERVISOR Depression Screen Q1: Over the past two weeks, have you felt down, depressed or hopeless? No Q2: Over the past two weeks, have you felt little interest or pleasure in doing things? No Current exercise habits: Tries to be active but no regular activity/exercise Dietary habits: Tries to eat healthy Hearing difficulties: no Safe in current home environment: Yes Tobacco: no ETOH: occasional STRUCTURAL MILL SUPERVISOR History: LMP: Patient's last menstrual period was [...] physical.. Nancy Harris APRN-CHRISTIANO documented in this encounterProtestant [facility]01-26-2023 Miscellaneous Notes* Letter - Mammography Coordinator - 08/06/2022 3:57 PM EST August 07, 2022 PID: [id number] Jolie Healy [id number] [place] [id number] Dear Ms. Healy, We are pleased to [...] report will be kept on file at [facility] as part of your permanent medical record and are available for your continuing care. Thank you for allowing us to help in meeting your health care needs. Sincerely, Dr. Iglesias Interpreting Radiologist [facility] (Normal over 40) documented in this encounterProtestant Deaconess Hospital01-25-2023 History of Present illness Narrative* Jolie GISELL Hughes.[facility] - 08/05/2022 8:36 AM EST Director Pharmaceutical offered: Patient declines. Jolie is a 62 [...] L2 SAB0 IAB0 Ectopic0 Multiple0 Live Births0 Quarter Backer History LMP: 12/22/2012, Postmenopausal Age at Menarche: Age at First : Age at Menopause: Quarter Backer History Comments: Sexual Activity: Yes; Male; BTL [...] external genitalia normal, normal Bartholin's glands, urethra, Flora's glands, no vulvar lesions, no cervical lesions, [...] year or sooner as needed Jolie Hughes APRN.COMMERCIAL CLEANER documented in this encounterProtestant [facility]acon[facility]01-25-2023 History of Present illness Narrative* Deborah Roman [...] 05, 2022 8:27 AM documented in this encounterProtestant Deacon[facility] Hospital01-12-2023 Miscellaneous Notes* Telephone Encounter - Nikkie Montero LPN - 07/23/2022 1:40 PM EST Spoke with pt and appt rescheduled. Nikkie Montero LPN * Telephone Encounter - Nikkie Montero LPN - 07/23/2022 6:46 AM EST Mychart message left for pt to reschedule since provider is absence. Nikkie Montero LPN documented in this encounterProtestant Deacon[facility] Hospital12-27-2022 History of Present illness Narrative* Joana Iqbal APRN.CNP - 07/07/2022 6:50 PM EST Subjective Cough Associated symptoms include chills, headaches and sore throat. Pertinent negatives include no myalgias. Jolie Healy is a 62 year old female who presents with sore throat, cough, headache, chills. Shehas had exposure to strep. She saw Reppler online and was prescribed steroids. Her is [...] Discussed expected course of illness Joana Iqbal APRN.CHRISTIANO documented in this encounterProtestant Deacon[facility] Hospital12-27-2022 Instructions* Patient Instructions* Joana Iqbal APRN.CNP - [...] Discussed expected course of illness Joana Iqbal APRN.COMMERCIAL CLEANER What is strep throat? Strep throat is [...] treated with antibiotics. When to call the newspaper stuffer If your child has a sore throat that persists (not one that goes away after her first drink in the morning), whether or not it is accompanied by fever, headache, stomachache, or extreme fatigue, you should call your newspaper stuffer. That call should be made even more urgently if your child seems extremely ill, or if she has difficulty breathing or extreme trouble swallowing (causing her to drool). This may indicate a more serious infection. Treatment If the strep test shows that your child does have strep throat, your newspaper stuffer will prescribe anantibiotic to be taken by [...] However, rheumatic fever is rare in the [place] and in children under five years [...] usually the best solution. documented in this encounterProtest[facility]acon[facility]10-20-2022 Miscellaneous Notes* Telephone Encounter - Kiley Rees APRN.CNP - 04/30/2022 8:35 AM EDT CMP updated to stat so patient can have results prior to reclast infusion. Kiley Rees APRN.CNP documented in this encounterProtestant [facility]acon[facility]10-20-2022 Miscellaneous Notes* Telephone Encounter - Kiley Rees APRN.CNP - 04/30/2022 8:33 AM EDT Orders Placed Kiley Rees APRN.CNP * Telephone Encounter - Edith Sanchez RN - 04/30/2022 8:22 AM EDT Patient currently at [facility] awaiting a scheduled treatment. PSS requesting lab order that patient needs placed prior to treatment. Requesting CMP be placed at this time, if possible. Please send message back to this sender so that can be notified of order placed. Thank you. documented in this encounterProtestant Deacon[facility] Hospital10-06-2022 History of Present illness Narrative* Mitchell An MD - 04/16/2022 8:10 AM EDT Reason for Visit Patient presents with: Physical Jolie Healy is a 61 year old [...] M81.0 Mitchell An MD documented in this encounterProtestant Deaconess Hospital05-23-2022 History of Present illness Narrative* Amaury Sarkar, PT - 12/01/2021 5:57 PM EDT Episode Visit Count: 3 Therapist That Will Oversee The Plan Of Care: Amaruy Sarkar PT Start of Care Date: 11/17/21 [...] 45 Amaury Sarkar PT documented in this encounterProtestant Deaconess Hospital05-20-2022 History of Present illness Narrative* Amaury Sarkar [...] Total Treatment Time Minutes (timed/untimed): 40 Amaury Golias, PT documented in this encounter[facility] History of Present illness Narrative* Amaury Sarkar [...] Planned: 10 Planned Treatment Interventions: Therapeutic exercise (55243);Manual therapy (33715);Self-care homemanagement (38855);Patient/Family/Caregiver Education;Body Mechanics Training;Functional training PLAN FOR NEXT [...] Function: Independent without limitations Relevant History 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 Patient education as noted. Self-Retirement Management: 1: Pt was educated extensively on [...] 56 Amaury Sarkar PT documented in this encounter[facility] History of Present illness Narrative* Justin Jones, RT(R) - 11/10/2021 10:10 AM EDT Radiology [...] DATA: Not applicable SIGNED BY: RT Lorena(R) November 10, 2021 10:22 AM documented in this encounterProtest[facility]04-18-2022 Miscellaneous Notes* Telephone Encounter - Jaden Wilson - 10/27/2021 3:47 PM EDT Pt is scheduled for their [facility] US on 12/11 at [facility]. * Telephone Encounter - Admin Nicole Steel [...] locations. Slot held: N/A documented in this encounterProtestant [facility]04-18-2022 History of Present illness Narrative* Mitchell An [...] A1C Mitchell An MD documented in this encounterBrecksville [facility]alsult note Author Franco Jarrett [facility] Note Date/Time October 03, 2024 6:3 3am [facility] Medical Records Department [address] [place] [address] Pre-Anesthesia Evaluation 10/03/24 0628 MR#: [id number] Acct: [id number] Name: JOLIE HEALY Rep #:[id number] : 1960 64 From: Franco Jarrett MD PCP: Dr. Jolie Parsons MD Status:REG SDC Y Race: C Location: [place] [address] ASA Classification* ASA Classification ASA Classification: 2 [...] cm Mallampati Score: I Teeth Condition: Caps/Crowns ([place] on left lower molar. It is tight.) [...] cscope oa Anesthesia History Anesthesia History - classroom technology coach: Anesthesia History - classroom technology coach Hx Hospitalization No 09/29/24 08:28 Any Problems [...] prep at 1 AM.) PONV PONV - classroom technology coach: PONV - classroom technology coach Female Yes 09/29/24 08:28 HX of Motion [...] 10/03/24 05:45 Respiratory Assessment Respiratory Assessment - classroom technology coach: Respiratory Tract Infection Hx - classroom technology coach Hx Respiratory Tract Infection No 09/29/24 08:28 STOP Sleep Apnea STOP Sleep Apnea - classroom technology coach: STOP Sleep Apnea - classroom technology coach Hx Hypertension No 09/29/24 08:28 Hx Sleep [...] Tobacco Use History Tobacco Use History - classroom technology coach: Tobacco Use History - classroom technology coach Tobacco Use Smoking Status Never smoker 09/29/24 08:28 Hx Tobacco Use No 09/29/24 08:28 Years Smoking Packs Smoked per Day Smoking Cessation Date was within the last 15 years Hx Smoking Cessation Date Hx Smoking Cessation Counseling Hematologic Medial History Hematologic Hx - classroom technology coach: Hematologic Medical Hx - biometrician Hx of Blood Transfusion No 09/29/24 08:28 [...] confused, unrespo /Reproduction History /Reproductive History - classroom technology coach: /Reproductive Hx- classroom technology coach Hx Now No 09/29/24 08:28 Gestational Age (in weeks): EDC: Hx Hx Para Hx Section SAB No 09/29/24 08:28 [facility] Loss of hearing Post-menopausal Alcohol [...] mg tablet (24Hour 10 mg PO DAILY 10/03/ 5 10/02/24 History Allergy) Allergy/AdvReac Type Severity [...] and no additional complaints, except as documented. 10/03/24632 <Electronically signed by Franco jackson MD> Date _ Franco Jarrett MD Cosigner Signature: Date CC: ~ Signed [facility] Work Phone: Consult note Author Davey Delarosa [facility] Note Date/Time October 03, 2024 7:2 8am [facility] Medical Records Department [address] [place] [address] Anesthesia Postop Eval I 10/03/24 0728 MR#: [id number] Acct: [id number] Name: JOLIE HEALY Rep #:[id number] : 1960 64 From: Davey Delarosa PCP: Dr. Jolie Parsons MD Status:REG SDC Y Race: C Location: [place] [address] Anesthesia: Postop Eval I Current Vital Signs [...] Anesthesia document: Postop Eval 1 completed: Yes 10/03/24 0728 <Electronically signed by Davey Delarosa > Date _ Davey Keyignaddy Signature: Date CC: ~ Signed [facility] Work Phone: Evaluation note* Diagnosis Left hip pain- Primary Pain in joint, pelvic region and thigh Lipid screening Screening for lipoid disorders Elevated blood sugar Other abnormal glucose [facility] Diagnosis Pain in left hip- Primary Pain in joint, pelvic region and thigh [facility] Pain in left hip Pain in joint, pelvic region and thigh [facility]* Diagnosis Chronic bilateral low back pain without sciatica Lumbar disc herniation with radiculopathy Displacement of lumbar intervertebral disc without myelopathy Intervertebral disc disorder with radiculopathy of lumbar region Thoracic or lumbosacral neuritis or radiculitis, unspecified [facility] Diagnosis Lumbar disc herniation with radiculopathy- Primary Displacement of lumbar intervertebral disc without myelopathy [facility] Diagnosis Lumbar disc herniation with radiculopathy- Primary Displacement of lumbar intervertebral disc without myelopathy documented [facility]* Diagnosis Annual physical exam- Primary Routine general medical examination at a health care facility Osteopenia of multiple sites Height loss Loss of height Vitamin D deficiency Unspecified vitamin D deficiency High risk for fracture due to osteoporosis by DEXA scan Osteoporosis, unspecified documented [facility] encounter [facility]* Diagnosis Medication management- Primary Encounter for long-term (current) use of other medications Annual physical exam Routine general medical examination at a [facility] care facility [facility]* Diagnosis Annual physical exam- Primary Routine general medical examination at a health care facility [facility]* Diagnosis Age-related osteoporosis without current pathological fracture- Primary Senile osteoporosis [facility]* Diagnosis Sore throat- Primary Acute pharyngitis Strep throat Streptococcal sore throat [facility]* Diagnosis Encounter for screening mammogram for breast cancer documented [facility]* Diagnosis Encounter for gynecological examination (general) (routine) without abnormal findings- Primary Encounter for screening mammogram for breast cancer documented [facility]* Diagnosis Wellness examination- Primary Age-related osteoporosis without current pathological fracture Senile osteoporosis Multiple thyroid nodules Nontoxic multinodular goiter Sleep disorder Sleep disturbance, unspecified Mood changes Unspecified episodic mood disorder Vitamin D deficiency Unspecified vitamin D deficiency Encounter for immunization Need for other specified prophylactic vaccination against single bacterial disease Encounter for therapeutic drug monitoring [facility]* Diagnosis Encounter for therapeutic drug monitoring- Primary documented [facility] encounter [facility]* Diagnosis Encounter for screening mammogram for breast cancer documented [facility] encounter [facility]* Diagnosis Age-related osteoporosis without current pathological fracture Senile osteoporosis documented in this encounter [facility] note* Diagnosis Age-related osteoporosis without current pathological fracture- Primary Senile osteoporosis documented in this encounter [facility] note* Diagnosis Encounter for screening mammogram for breast cancer documented in this encounter [facility] note* Diagnosis Encounter for screening mammogram for breast cancer documented [facility] encounter [facility] noteNo assessment information availableWLouis Stokes [facility] Work Phone: Evaluation note* Diagnosis Screening for colorectal cancer- Primary Special screening for malignant neoplasms, colon documented [facility] encounter [facility] Author Vinnie Enrique [facility] Note Date/Time October 03, 2024 7:0 0am [facility] Medical Records Department [address] [place] [address] History & Physical Exam 10/03/24 0658 MR#: [id number] Acct: [id number] Name: JOLIE HEALY Rep #:[id number] : 1960 64 From: Vinnie Enrique DO PCP: Dr. Jolie Parsons MD Status:[facility] Location: [place] [address] HPI - General General Date of Admission: 10/03/24 Date of Service: 10/03/24 Chief Complaint: Screening colonoscopy HPI Narrative JOLIE HEALY, is a 64 F who presents today for screening colonoscopy. She has not had a colonoscopy in the past. She has no medical history. She does not take any medicines on daily basis. [facility] Medical History Loss of hearing Post-menopausal Alcohol [...] mg tablet (24Hour 10 mg PO DAILY 10/03/ 5 10/02/24 History Allergy) Allergy/AdvReac Type Severity [...] DO~ Signed [facility] Work Phone: Reason for referral (narrative)* Diagnostic Procedure Only (Routine) - Pending Review Specialty Diagnoses / Procedures Referred By Charlie t Referred To Contact XR IMAGING Diagnoses Pain in left hip Procedures XR HIP GENERAL 3V PELV/AP/LAT LEFT RADEX HIP UNILATERAL WITH PELVIS 2-3 VIEWS Jossue Gutierrez MD [address] [place] [address] Xr Imaging Referral ID Status Reason Start Date Expiration Date Visits Requested Visits Authorized [id number] Pending Review Auto-Generat ed Referral 11/04/2021 12/04/2022 1 1 [facility] for referral (narrative)* Diagnostic Procedure Only (Routine) - Closed Specialty Diagnoses / Procedures Referred By Charlie t Referred To Contact XR IMAGING Diagnoses Pain in left hip Procedures XR HIP GENERAL 3V PELV/AP/LAT LEFT RADEX HIP UNILATERAL WITH PELVIS 2-3 VIEWS Jossue Gutierrez MD [address] [place] [address] Xr Imaging Referral ID Status Reason Start Date Expiration Date V isits Requested Visits Authorized [id number] Closed Auto-Generate d Referral 11/04/2021 12/04/2022 1 1 [facility] for referral (narrative)* Diagnostic Procedure Only (Routine) - Pending Review Specialty Diagnoses / Procedures Referred By Charlie gama Referred To Contact BR IMAGING Diagnoses Encounter for screening mammogram for breast cancer Procedures ROSCOE SCREENING SCREENING MAMMOGRAPHY BI 2-VIEW BREAST INC Mitchell Lay MD [address] [place] [address] Br Imaging [address] [place] [address] Referral ID Status Reason Start Date Expiration Date Visits Requested Visits Authorized [id number] Pending Review Auto-Generat ed Referral 08/07/2023 1 1 [facility] for referral (narrative)* Diagnostic Procedure Only (Routine) - Authorized Specialty Diagnoses / Procedures Referred By Contac t Referred To Contact BR IMAGING Diagnoses Encounter for gynecological examination (general) (routine) without abnormal findings Encounter for screening mammogram for breast cancer Procedures ROSCOE SCREENING SCREENING MAMMOGRAPHY BI 2-VIEW BREAST INC CAD Jolie Hughes APRN.CNP [address] [place] [address] [facility] [address] [place] [address] Referral ID Status Reason Start Date Expiration Date Visits Requested Visits Authorized [id number] Authorized Auto-Generat ed Referral 08/05/2022 09/04/2023 1 1 [facility] for referral (narrative)* Diagnostic Procedure Only (Routine) - Closed Specialty Diagnoses / Procedures Referred By Contac t Referred To Contact BR IMAGING Diagnoses Encounter for screening mammogram for breast cancer Procedures ROSCOE SCREENING SCREENING MAMMOGRAPHY BI 2-VIEW BREAST INC Mitchell Lay MD [facility] [place] [address] Br Imaging [address] [place] [address] Referral ID Status Reason Start Date Expiration Date V isits Requested Visits Authorized [id number] Closed Auto-Generate d Referral 07/30/2021 08/29/2022 1 1 [facility] for referral (narrative)* Diagnostic Procedure Only (Routine) - Pending Review Specialty Diagnoses / Procedures Referred By Charlie gama Referred To Contact BR IMAGING Diagnoses Encounter for screening mammogram for breast cancer Procedures ROSCOE SCREENING SCREENING MAMMOGRAPHY BI 2-VIEW BREAST INC Mitchell Lay MD [address] [place] [address] Br Imaging [address] [place] [address] Referral ID Status Reason Start Date Expiration Date Visits Requested Visits Authorized [id number] Pending Review Auto-Generat ed Referral 09/08/2023 10/07/2024 1 1 [facility] for referral (narrative)No reason for referral information availableWLouis Stokes [facility] Work Phone: Reason for visit Narrative* Diagnostic Procedure Only (Routine) - Closed Specialty Diagnoses / Procedures Referred By Contac t Referred To Contact XR IMAGING Diagnoses Pain in left hip Procedures XR HIP GENERAL 3V PELV/AP/LAT LEFT RADEX HIP UNILATERAL WITH PELVIS 2-3 VIEWS Jossue Gutierrez MD [address] [place] [address] Xr Imaging Referral ID Status Reason Start Date Expiration Date V isits Requested Visits Authorized [id number] Closed Auto-Generate d Referral 11/04/2021 12/04/2022 1 1 [facility]* Diagnostic Procedure Only (Routine) - Closed Specialty Diagnoses / Procedures Referred By Contac t Referred To Contact BR IMAGING Diagnoses Encounter for screening mammogram for breast cancer Procedures ROSCOE SCREENING SCREENING MAMMOGRAPHY BI 2-VIEW BREAST INC CAD Mitchell An MD [address] [place] [address] Br Imaging [address] [place] [address] Referral ID Status Reason Start Date Expiration Date V isits Requested Visits Authorized [id number] Closed Auto-Generate d Referral 07/30/2021 08/29/2022 1 1 [facility] Summary Purpose Family History No Family History Records Found Relationship Condition Age at Onset Recorded Date/T rishi Not Specified Malignant neoplasm of skin Unknown Osteoporosis Unknown Anxiety Unknown Arthritis Unknown Depression Unknown Disorder of thyroid Unknown Asthma Unknown Advance Directives No Advanced Directives Records FoundDocuments on File Type Date Recorded 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 Yes September 29, 2024 8:28am Name of Medical Power of Bone Grinder SPOUSE September 29, 2024 8:28am Reason for Referral Status Reason Specialty Diagnoses / Procedures Referre d By Contact Referred To Contact Closed Radiology Diagnoses Encounter for screening mammogram for malignant neoplasm of breast Procedures ROSCOE DIGITAL SCREEN W OR WO CAD BILATERAL Erik Luna MD [address] [place] [address] Specialty Diagnoses / Procedures Referred By Contac t Referred To Contact Orthopedics Diagnoses Left hip pain Procedures CONSULT TO ORTHOPAEDICS OFFICE/OUTPATIENT NEW HIGH MDM 60-74 MINUTES Mitchell An MD [address] [place] [address] Referral ID Status Reason Start Date Expiration Date Visits Requested Visits Authorized [id number] Pending Review PCP Requested Referral 10/27/2021 10/27/2022 1 1 Specialty Diagnoses / Procedures Referred By Charlie t Referred To Contact US IMAGING Diagnoses Left hip pain Procedures US HIP LT US COMPL JOINT R-T W/IMAGE DOCUMENTATION Mitchell An MD [address] [place] [address] Us Imaging Referral ID Status Reason Start Date Expiration Date Visits Requested Visits Authorized [id number] Authorized Auto-Generat ed Referral 10/27/2021 11/26/2022 1 [...] section and content) DATE CREATED AUTHOR 12/31/[address] [facility] DATE CREATED AUTHOR AUTHOR'S ORGANIZ ATION 03/16/2019 [facility] DATE CREATED AUTHOR AUTHOR'S ORGANIZ ATION 03/20/2019 [facility] DATE CREATED AUTHOR AUTHOR'S ORGANIZ ATION 01/23/2025 [facility] DATE CREATED AUTHOR AUTHOR'S ORGANIZ ATION 05/24/2025 [facility] Source Comments (unrecognize d section and content) In the event this informatio n is protected by the Federal Confidentiality of Alcohol and Drug Abuse Patient Records regulations: The Federal rules restrict any use of the information to criminally investigate or prosecute any alcohol or drug abuse patient.[facility] HospitalIn the event this information is protected by the Federal Confidentiality of Alcohol and Drug Abuse Patient Records regulations: The Federal rules restrict any use of the information to criminally investigate or prosecute any alcohol or drug abuse patient.[facility] HospitalIn the event this information is protected by the Federal Confidentiality of Alcohol and Drug Abuse Patient Records regulations: The Federal rules restrict any use of the information to criminally investigate or prosecute any alcohol or drug abuse patient.[facility] HospitalIn the event this information is protected by the Federal Confidentiality of Alcohol and Drug Abuse Patient Records regulations: The Federal rules restrict any use of the information to criminally investigate or prosecute any alcohol or drug abuse patient.[facility] HospitalIn the event this information is protected by the Federal Confidentiality of Alcohol and Drug Abuse Patient Records regulations: The Federal rules restrict any use of the information to criminally investigate or prosecute any alcohol or drug abuse patient.[facility] HospitalIn the event this information is protected by the Federal Confidentiality of Alcohol and Drug Abuse Patient Records regulations: The Federal rules restrict any use of the information to criminally investigate or prosecute any alcohol or drug abuse patient.[facility] HospitalIn the event this information is protected by the Federal Confidentiality of Alcohol and Drug Abuse Patient Records regulations: The Federal rules restrict any use of the information to criminally investigate or prosecute any alcohol or drug abuse patient.[facility] HospitalIn the event this information is protected by the Federal Confidentiality of Alcohol and Drug Abuse Patient Records regulations: The Federal rules restrict any use of the information to criminally investigate or prosecute any alcohol or drug abuse patient.[facility] HospitalIn the event this information is protected by the Federal Confidentiality of Alcohol and Drug Abuse Patient Records regulations: The Federal rules restrict any use of the information to criminally investigate or prosecute any alcohol or drug abuse patient.[facility] HospitalIn the event this information is protected by the Federal Confidentiality of Alcohol and Drug Abuse Patient Records regulations: The Federal rules restrict any use of the information to criminally investigate or prosecute any alcohol or drug abuse patient.[facility] HospitalIn the event this information is protected by the Federal Confidentiality of Alcohol and Drug Abuse Patient Records regulations: The Federal rules restrict any use of the information to criminally investigate or prosecute any alcohol or drug abuse patient.[facility] HospitalIn the event this information is protected by the Federal Confidentiality of Alcohol and Drug Abuse Patient Records regulations: The Federal rules restrict any use of the information to criminally investigate or prosecute any alcohol or drug abuse patient.[facility] HospitalIn the event this information is protected by the Federal Confidentiality of Alcohol and Drug Abuse Patient Records regulations: The Federal rules restrict any use of the information to criminally investigate or prosecute any alcohol or drug abuse patient.[facility] HospitalIn the event this information is protected by the Federal Confidentiality of Alcohol and Drug Abuse Patient Records regulations: The Federal rules restrict any use of the information to criminally investigate or prosecute any alcohol or drug abuse patient.[facility] HospitalIn the event this information is protected by the Federal Confidentiality of Alcohol and Drug Abuse Patient Records regulations: The Federal rules restrict any use of the information to criminally investigate or prosecute any alcohol or drug abuse patient.[facility] HospitalIn the event this information is protected by the Federal Confidentiality of Alcohol and Drug Abuse Patient Records regulations: The Federal rules restrict any use of the information to criminally investigate or prosecute any alcohol or drug abuse patient.[facility] HospitalIn the event this information is protected by the Federal Confidentiality of Alcohol and Drug Abuse Patient Records regulations: The Federal rules restrict any use of the information to criminally investigate or prosecute any alcohol or drug abuse patient.[facility] HospitalIn the event this information is protected by the Federal Confidentiality of Alcohol and Drug Abuse Patient Records regulations: The Federal rules restrict any use of the information to criminally investigate or prosecute any alcohol or drug abuse patient.[facility] HospitalIn the event this information is protected by the Federal Confidentiality of Alcohol and Drug Abuse Patient Records regulations: The Federal rules restrict any use of the information to criminally investigate or prosecute any alcohol or drug abuse patient.[facility] HospitalIn the event this information is protected by the Federal Confidentiality of Alcohol and Drug Abuse Patient Records regulations: The Federal rules restrict any use of the information to criminally investigate or prosecute any alcohol or drug abuse patient.[facility] HospitalIn the event this information is protected by the Federal Confidentiality of Alcohol and Drug Abuse Patient Records regulations: The Federal rules restrict any use of the information to criminally investigate or prosecute any alcohol or drug abuse patient.[facility] HospitalIn the event this information is protected by the Federal Confidentiality of Alcohol and Drug Abuse Patient Records regulations: The Federal rules restrict any use of the information to criminally investigate or prosecute any alcohol or drug abuse patient.[facility] HospitalIn the event this information is protected by the Federal Confidentiality of Alcohol and Drug Abuse Patient Records regulations: The Federal rules restrict any use of the information to criminally investigate or prosecute any alcohol or drug abuse patient.[facility] HospitalIn the event this information is protected by the Federal Confidentiality of Alcohol and Drug Abuse Patient Records regulations: The Federal rules restrict any use of the information to criminally investigate or prosecute any alcohol or drug abuse patient.[facility] the event this information is protected by the Federal Confidentiality of Alcohol and Drug Abuse Patient Records regulations: The Federal rules restrict any use of the information to criminally investigate or prosecute any alcohol or drug abuse patient.[facility] the event this information is protected by the Federal Confidentiality of Alcohol and Drug Abuse Patient Records regulations: The Federal rules restrict any use of the information to criminally investigate or prosecute any alcohol or drug abuse patient.[facility] the event this information is protected by the Federal Confidentiality of Alcohol and Drug Abuse Patient Records regulations: The Federal rules restrict any use of the information to criminally investigate or prosecute any alcohol or drug abuse patient.[facility] the event this information is protected by the Federal Confidentiality of Alcohol and Drug Abuse Patient Records regulations: The Federal rules restrict any use of the information to criminally investigate or prosecute any alcohol or drug abuse patient.[facility] HospitalIn the event this information is protected by the Federal Confidentiality of Alcohol and Drug Abuse Patient Records regulations: The Federal rules restrict any use of the information to criminally investigate or prosecute any alcohol or drug abuse patient.[facility] Reason for Visit (unrecogniz ed section and content) Reason Comments reclast Specialty Diagnoses / Procedures Referred By Contac t Referred To Contact Diagnoses Age-related osteoporosis without current pathological fracture Procedures INJECTION, ZOLEDRONIC ACID, 1 MG Mitchell An MD [address] [place] [address] Gene [facility], [facility] [address] [place] [address] Referral ID Status Reason Start Date Expiration Date V isits Requested Visits Authorized [id number] Authorized 04/16/2022 05/24/2024 2 2 Reason Comments Physical Therapy Specialty Diagnoses / Procedures Referred By Contac t Referred To Contact [facility] Diagnoses Intervertebral disc disorder with radiculopathy of lumbar region Procedures CONSULT TO PHYSICAL THERAPY PHYSICAL THERAPY EVALUATION HIGH COMPLEX 45 MINS Jossue Gutierrez MD [address] [place] [address] [facility] [place] [address] [place] [address] Referral ID Status Reason Start Date Expiration Date Visits Requested Visits Authorized [id number] Authorized Auto-Generat ed Referral 11/10/2021 07/11/2022 5 5 Status Reason Specialty Diagnoses / Procedures Referre d By Contact Referred To Contact Closed Radiology Diagnoses Encounter for screening mammogram for malignant neoplasm of breast Procedures ROSCOE DIGITAL SCREEN W OR WO CAD BILATERAL Erik Luna MD [address] [place] [address] Reason Comments c/o leg and chest pain Reason Comments Appointment Reason Comments PT Eval Reason Comments Physical Reason Comments Orders Reason Comments Lab Order Request Reason Comments Non-Chemotherapy Treatment Referral ID Status Reason Start Date Expiration Date V isits Requested Visits Authorized [id number] Waiting for Response 04/16/2022 07/15/2022 1 1 Reason Comments Cough headache, fatigue x 1 week, exposure to strep Reason Comments Well Woman Specialty Diagnoses / Procedures Referred By Contac t Referred To Contact Gynecology Diagnoses Pap smear, as part of routine gynecological examination Procedures CONSULT TO GYNECOLOGY OFFICE/OUTPATIENT NEW HIGH MDM 60-74 MINUTES Older, GISELL Cao.[employer] [address] [place] [address] Referral ID Status Reason Start Date Expiration Date Visits Requested Visits Authorized [id number] Pending Review PCP Requested Referral Auto-Generate d Referral 07/16/2022 07/16/2023 1 1 Reason Onset Date Comments Outpatient Colonoscopy 12/19/2024 Patient i s overdue for colorectal cancer screening since 10/10/2023. Please schedule open access colonoscopy. Care Teams (unrecognized sec tion and content) Certified Fraud Examiner Relationship Specialty Start Date End Date Mitchell An MD [address] [facility] [place] [address] PCP - General Internal Medicine 10/18/20 Certified Fraud Examiner Relationship Specialty Start Date End Date Mitchell An MD [address] [facility] [place] [address] PCP - General Internal Medicine 10/18/20 Certified Fraud Examiner Relationship Specialty Start Date End Date Mitchell An MD [address] [facility] [place] [address] PCP - General Internal Medicine 10/18/20 Certified Fraud Examiner Relationship Specialty Start Date End Date Mitchell An MD [address] [facility] [place] [address] PCP - General Internal Medicine 10/18/20 Certified Fraud Examiner Relationship Specialty Start Date End Date Mitchell An MD [address] [facility] [place] [address] PCP - General Internal Medicine 10/18/20 Certified Fraud Examiner Relationship Specialty Start Date End Date Mitchell An MD [address] [facility] [place] [address] PCP - General Internal Medicine 10/18/20 Certified Fraud Examiner Relationship Specialty Start Date End Date Mitchell An MD [address] [facility] [place] [address] PCP - General Internal Medicine 10/18/20 Certified Fraud Examiner Relationship Specialty Start Date End Date Mitchell An MD [address] [facility] [place] [address] PCP - General Internal Medicine 10/18/20 Certified Fraud Examiner Relationship Specialty Start Date End Date Mitchell An MD [address] [facility] [place] [address] PCP - General Internal Medicine 10/18/20 Certified Fraud Examiner Relationship Specialty Start Date End Date Mitchell An MD [address] [facility] [place] [address] PCP - General Internal Medicine 10/18/20 Certified Fraud Examiner Relationship Specialty Start Date End Date Mitchell An MD [address] [place] [address] PCP - General Internal Medicine 10/18/20 Certified Fraud Examiner Relationship Specialty Start Date End Date Mitchell An MD [address] [place] [address] PCP - General Internal Medicine 10/18/20 Certified Fraud Examiner Relationship Specialty Start Date End Date Mitchell An MD [address] [place] [address] PCP - General Internal Medicine 10/18/20 Certified Fraud Examiner Relationship Specialty Start Date End Date Mitchell An MD [address] [place] [address] PCP - General Internal Medicine 10/18/20 Certified Fraud Examiner Relationship Specialty Start Date End Date Mitchell An MD [address] [place] [address] PCP - General Internal Medicine 10/18/20 Certified Fraud Examiner Relationship Specialty Start Date End Date Mitchell An MD [address] [place] [address] PCP - General Internal Medicine 10/18/20 Certified Fraud Examiner Relationship Specialty Start Date End Date Mitchell An MD [address] [place] [address] PCP - General Internal Medicine 10/18/20 Certified Fraud Examiner Relationship Specialty Start Date End Date Mitchell An MD [address] [place], [place] [address] PCP - General Internal Medicine 10/18/20 Certified Fraud Examiner Relationship Specialty Start Date End Date Mitchell An MD [address] [place], [place] [address] PCP - General Internal Medicine 10/18/20 Keesha Smith PA-C [address] [place] [address] Poolroom/Poolhall Manager Family [facility] 06/18/24 Kiley Rees APRN.CNP [address] [place], [place] [address] Poolroom/Poolhall Manager Internal Medicine 06/18/24 Maria Loving PA-C [address] [place], [place] [address] [facility]24 Team Status: Active Member Role Status Dates Dr. Jolie Parsons MD Primary Care Provider Active Team Status: Active Member Role Status Dates Dr. Jolie Parsons MD Primary Care Provider Active Start: June 27, 2024 Amelia Vizcaino Attending Provider Active Start: Md hira 2023 Team Status: Inactive Member Role Status Dates Dr. Jolie Parsons MD Primary Care Provider Active Start: July 06, 2024 End: July 06, 2024 Jessica Appiah INFORMATION SYSTEMS AUDITOR, INFORMATION SYSTEMS AUDITOR-C Attending Provider Active Start: July 06, 2024 End: July 06, 2024 Jessica Appiah INFORMATION SYSTEMS AUDITOR, INFORMATION SYSTEMS AUDITOR-C Referring Provider Active Start: July 06, 2024 [...] Provider Active St art: October 03, 2024 Certified Fraud Examiner Relationship Specialty Start Date End Date Mitchell An MD [address] [place] [address] PCP - General Internal Medicine 10/18/20 12/31/24 Jolie Parsons [address] [facility] [address] [place], [place] [address] PCP - General Family Medicine 01/01/25 Kiley Rees APRN.CNP [address] [place] [address] Poolroom/Poolhall Manager Internal Medicine 06/18/24 Goals (unrecognized section and [...] BE BASED ON THE PRIMARY CLINICAL RECORDS. [facility] [employer] [facility]. provides no warranty or guarantee of the accuracy or completeness of information in this document.
== END | disposition home or self-care (01) ==
LOC: OPBI 07-11 08:34
PROVIDERS: PCP Family Medicine; Referring Provider Nurse Practitioner Women's Health; Visit Provider Nurse Practitioner Women's Health
DX: Z12.31 Encounter for screening mammogram for malignant neoplasm of breast (principal)
CPT/HCPCS: 77063; 77067